=== PATIENT | female | born 1960 | race African-American/Black ===

== ENCOUNTER 2020-09-13 22:27 | Inpatient (IN) | payer SELFPAY ==
[~2020-09-13 22:27] MED LIST: Iopamidol-370 76% 500 ML 1 ML ONE
[2020-09-13 23:08] LABS: PTT 24.7 sec (22.9-36.1); Prothrombin Time 13.8 sec (12.0-14.7)
[2020-09-13] MEDS ORDERED: Fentanyl 100 MCG/2 ML VIAL ONE (23:11)
[2020-09-13] MEDS ORDERED: niMODipine 30 MG CAP PO SCH ×2 (23:15→23:50)
[2020-09-13] MEDS ORDERED: niCARdipine 20MG In NaCl 20 MG/200 ML BAG ONE (23:21)
[2020-09-13] MEDS ORDERED: Morphine 2 MG/ML VIAL SLOW IVP PRN (23:43)
[2020-09-13] MEDS ORDERED: Promethazine HCl 25 MG/ML VIAL IM PRN (23:43)
[2020-09-13] MEDS ORDERED: Mag-Al 1200 mg/1200 mg/30 ML UDCUP PO PRN (23:43)
[2020-09-13] MEDS ORDERED: Ondansetron PF 4 MG/2 ML Vial IVP PRN (23:43)
[2020-09-13] MEDS ORDERED: Milk Of Magnesia 30 ML UDCUP PO PRN (23:43)
[2020-09-13] MEDS ORDERED: Promethazine 25 MG TAB PO PRN (23:43)
[2020-09-13] MEDS ORDERED: Docusate 100 MG CAP PO SCH (23:45)
[2020-09-13] MEDS ORDERED: niCARdipine 25 MG in Sodium Chloride 0.9% 250 ML 240 ML IVPB SCH (23:45)
[2020-09-13] MEDS ORDERED: Tranexamic Acid 1,000 MG in Sodium Chloride 0.9% 100 ML IVPB SCH (23:59)
--- NOTE | 2020-09-14 00:47 | HP ---
CHIEF COMPLAINT: Headache, nausea and vomiting. HISTORY OF PRESENT ILLNESS: Ms. Bello is a 59-year-old female, who was transferred from [facility] in [place] this evening for findings of acute subarachnoid hemorrhage concerning for ruptured aneurysm. The patient's daughter and son at bedside provided majority of the history. They report that the patient was at her granddaughter's basketball game this evening and around 1814 began complaining of an occipital headache and neck pain. She then had onset of nausea, vomiting, and diaphoresis. No associated loss of consciousness or confusion. The patient denies any vision changes, chest pain, shortness of breath, or other complaints. The patient was taken to the emergency department in [place], at which time she had a presenting blood pressure of 245/102. She has a known history of hypertension and takes lisinopril. She was administered labetalol [address] of the brain was completed which demonstrated subarachnoid hemorrhage involving the [place] of [place] with "crab of " appearance, with layering along the tentorium. Chest x-ray demonstrated stable cardiomegaly with bibasilar atelectasis. Given CT findings as well as persistent blood pressure elevation, the patient was started on a nicardipine drip. Air transfer to [place] was initiated and our team was consulted. Upon arrival to the Emergency Department in [place], CTA of the head was ordered and the patient was started on nimodipine 60 mg q.4 hours. She was also started on TXA. PAST MEDICAL HISTORY: Hypertension. HOME MEDICATIONS: Lisinopril. The patient does not take aspirin or any other anticoagulation at home. 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 section x2. Carpal tunnel surgery. SOCIAL HISTORY: Denies tobacco use. Denies alcohol use. Denies illicit drug use. The patient lives at home with her daughter. ALLERGIES: NO KNOWN DRUG ALLERGIES. REVIEW OF SYSTEMS: Positive for headache, neck pain, nausea, vomiting, diaphoresis. Twelve-point review of systems is otherwise negative. PHYSICAL EXAMINATION: VITAL SIGNS: Blood pressure 200s/90s, heart rate in the 60s, O2 saturation 99% on room air, respirations 16. GENERAL: The patient is drowsy with her eyes closed upon my entering the room for evaluation. However, she awakens quickly to verbal stimulus and responds to questions appropriately. She is in no acute distress at this time. HEENT: Head; normocephalic, atraumatic. Pupils 3 mm, equal and reactive to light bilaterally. Extraocular movements are intact. NECK: Supple. Normal range of motion. No tracheal deviation. CARDIAC: Regular rate and rhythm. RESPIRATORY: Lungs clear to auscultation bilaterally. No wheezing, no rales, no rhonchi, no tachypnea, nonlabored breathing. ABDOMEN: Soft, nondistended, and nontender. SKIN: Warm, dry. No rashes. NEUROLOGIC: The patient is drowsy, but awakens to verbal stimulus and responds to questions appropriately. She is A&O x3. She is able to correctly identify a pen and state its used. She provides the correct definition of an island. Cranial nerves 2 through 12 are grossly intact. No pronator drift. Full strength throughout the upper and lower extremity myotomes bilaterally. Sensation to light touch is intact throughout. Gait was not assessed. IMPRESSION AND DIAGNOSES: 1. Acute subarachnoid hemorrhage, possible ruptured aneurysm. 2. Hypertensive crisis. 3. History of hypertension. PLAN: The case was discussed and imaging reviewed with Dr. Zavala. He agreed that a CTA of the head should be completed upon ED arrival. As noted above, the patient was started on nimodipine 60 mg q.4 hours, as well as TXA for up to 24 hours. She will be on a nicardipine drip with blood pressure parameters of systolic blood pressure less than 140 mmHg. Head of bed 30 degrees. She will be admitted to the Critical Care Unit for hourly neurologic checks. Please call for any neurologic changes or other concerns. This was a 50-minute initial evaluation in which greater than 50% of the time was spent in review of records, review of imaging, evaluation, examination, and formulation of a plan. The remaining time was spent in counseling and coordination of care. Job ID: [id number] MTDD
[2020-09-14] MEDS ORDERED: niCARdipine 20MG In NaCl 20 MG/200 ML BAG ONE (01:14)
[2020-09-14] MEDS: Sodium Chloride 0.9% 1,000 ML IV SCH ×2 (01:51→17:33)
[2020-09-14 02:00] VITALS: BMI 48.9
[2020-09-14 03:58] LABS: Anion Gap 15 mmol/L (10-20); BUN (Urea Nitrogen) 12 mg/dL (9.8-20.1); Calc. Creatinine Clearance 154 mL/min (70-130); Calcium 9.9 mg/dL (7.8-10.44); Carbon Dioxide 25 mmol/L (22-29); Chloride 101 mmol/L (98-107); Estimated GFR-MDRD Greater than 90; Glucose 153 mg/dL (70-105); Potassium 3.5 mmol/L (3.5-5.1); Sodium 137 mmol/L (136-145)
[2020-09-14] MEDS: HYDROcodone/Acetaminophen 7.5/325 mg Tablet PO PRN ×2 (04:18→15:57)
[2020-09-14 04:21] LABS: PTT 26.2 sec (22.9-36.1); Prothrombin Time 13.7 sec (12.0-14.7)
[2020-09-14] MEDS: niCARdipine 50 MG in Sodium Chloride 0.9% 250 ML 230 ML IVPB SCH ×5 (04:27→23:15)
[2020-09-14 04:49] LABS: #Monocytes 0.2 thou/uL (0.11-0.59); %Basophils 0.2 % (0.0-1.0); %Eosinophils 0.1 % (0.0-10.0); %Lymphocytes 8.5 % (21.0-51.0); %Monocytes 1.7 % (0.0-10.0); %Neutrophils 89.5 % (42.0-75.0); Hemoglobin 11.7 g/dL (12.0-16.0); Hypochromia SLIGHT = 6-15 cells (100X) (0-5/hpf); MDiff Complete? YES; Mean Corpuscular HGB CONC 29.8 g/dL (32.0-36.0); Mean Corpuscular Hemoglobin 22.4 pg (27.0-31.0); Mean Platelet Volume 10.4 fL (7.4-10.4); Platelet Count 222 thou/uL (130-400); RBC Distribution Width 12.6 % (11.5-14.5); Red Blood Cell (RBC) Count 5.25 mill/uL (4.20-5.40); White Blood Cell (WBC) Count 12.3 thou/uL (4.8-10.8)
[2020-09-14] MEDS ORDERED: niMODipine 30 MG CAP PO SCH (07:45)
[2020-09-14 07:57] LABS: SARS-CoV-2 NAA Rapid Test Not Detected (NotDetected)
--- NOTE | 2020-09-14 08:04 | CT ---
CTA HEAD WITH CONTRAST: Date: 09/13/2020 COMPARISON: CT brain dated 09/13/2020. HISTORY: Subarachnoid hemorrhage. Evaluate for rupture intracranial aneurysm. TECHNIQUE: Multiple contiguous axial images were obtained in a CTA of the head with contrast. 3D sagittal and co gonzalez MIP reformats were performed. FINDINGS: Diffuse subarachnoid hemorrhage is again seen. There is a 1.2 cm area of more focal hyperdensity christi g the posterior aspect of the cribriform plate to the left of midline. This area is not immediately a djacent to a major arterial structure. Bilateral intracranial internal carotid arteries are normal in caliber and branch into normal caliber anterior and middle cerebral arteries. There is no evidence of focal stenosis, occlusion, or aneurys mal dilatation in the anterior circulation. As stated above, the abnormality to the left of midline i s at least 2.0 cm from the anterior cerebral artery and middle cerebral artery. The vertebral arteries form a normal appearing basilar artery. The posterior cerebral arteries and ce rebellar arteries are patent. There is no evidence of focal stenosis, occlusion, or aneurysmal dilata tion of the posterior circulation. The venous structures appear patent. IMPRESSION: 1. Diffuse subarachnoid hemorrhage. 2. No evidence of intracranial aneurysm. 3. There is a more focal area of hyperdensity to the left of midline along the posterior aspect of t he cribriform plate. This is nonspecific, but could potentially represent focal blood or an intracran ial mass in this location. A MRI of the brain with and without contrast is recommended for further ev aluation. This could potentially represent a meningioma. POS: MAGDA
[2020-09-14] MEDS: Tranexamic Acid 1,000 MG in Sodium Chloride 0.9% 100 ML IVPB SCH ×3 (08:59→17:36)
[2020-09-14] MEDS ORDERED: Labetalol HCl 100 MG/20 ML VIAL ONE (10:45)
[2020-09-14] MEDS: Labetalol HCl 100 MG/20 ML VIAL SLOW IVP PRN ×5 (10:45→22:06)
--- NOTE | 2020-09-14 12:16 | PRG ---
DATE OF SERVICE: 09/14/2020 This is a 50-minute initial hospital visit note, in which 50 minutes were spent reviewing the imaging record, evaluation, examination of the patient, formulation of plan. Greater than 50% of time was spent in counseling on Sharmin Bello. I reviewed the notes of my colleague, Grace Valverde PA-C, and agree with its content. Ms. Bello is a very pleasant 59-year-old woman with a history of hypertension. She takes lisinopril. She was at a basketball game yesterday evening and had thunderclap headache. She and her daughter state that perhaps weeks ago she had a brief incidence of left supraorbital cephalgia, but this resolved when she laid down. She was brought in last night, however, with thunderclap headache, nausea, and vomiting, and then taken to hospital in [place]. This demonstrated an evidence of aneurysmal subarachnoid hemorrhage with intraventricular extension, consistent with a Buckley 3+1 score. She has otherwise a good grade subarachnoid hemorrhage. She was transferred here. CT angiogram late last night demonstrates a 12-mm left periophthalmic aneurysm in a slightly unusual place as it appears to be supraclinoid in location with a wide dome. She has no history of cranial base trauma to indicate that this would be a traumatic aneurysm. I do not see any other evidence of other aneurysms on her CTA. There is a suspicion that this could also be a vascular lesion or tumor that bled. Nevertheless, we will get an MRI of the brain without and with contrast today with plan for formal angiogram tomorrow. She is on nimodipine. We are working on blood pressure control with nicardipine and I have added labetalol and hydralazine. She is on bed rest and we are currently utilizing tranexamic acid. I spoke with Dr. Monsalve as well regarding cerebral angiography for diagnostic and potentially therapeutic purposes. We will continue close observation in the ICU and I have discussed that the risks with aneurysm rupture include rebleed, hydrocephalus, vasospasm, and salt derangement in the coming days. Job ID: [id number]
--- NOTE | 2020-09-14 13:01 | MRI ---
Exam: Brain MRI with and without contrast HISTORY: Subarachnoid hemorrhage. Recent CT angiogram for aneurysm evaluation. Possible meningioma no indra on that exam. Further evaluation with brain MRI. COMPARISON: None Correlation: CT angiogram the head 09/14/2020 FINDINGS: Gradient echo sequence: Hypointensity involving the fourth, third ventricle, occipital horns of both ventricles left sylvian fissure, left sulci compatible with subarachnoid and intraventricular hemorrhage. Calvarium: Appropriate T1 marrow signal intensity Midline brain parenchyma: Unremarkable Cerebrum:No parenchymal mass, mass effect or midline shift. Brain volume is age-appropriate. Cortical ovalle-white matter differentiation is preserved. Ventricles: Intraventricular hemorrhage involving the occipital horn of both lateral ventricles. Intr aventricular hemorrhage in the third and fourth ventricle is also noted. Sinuses and mastoid air cells: Diminutive left maxillary sinus. Mild mucosal thickening of the visual ized paranasal sinuses. Adequate mastoid air cell aeration Diffusion: Central arterial flow is maintained. Absent restricted diffusion. FLAIR images: There is evidence of subarachnoid hemorrhage involving multiple left cerebral sulci, in terpeduncular cistern, ambient cistern. There are T2 and FLAIR white matter hyperintensities which may represent minimal chronic small vessel ischemic change. Postcontrast images:No pathologic enhancement the brain parenchyma. Just superior to the left clinoid process, there is a enhancing focus with dural tails, measuring 1 cm anterior posterior by 1 cm mediolateral by 0.8 cm cranial caudal. Meningioma is favored. Lesion corresponds to finding on recent CT angiogram IMPRESSION: 1. Subarachnoid and intraventricular hemorrhage 2. No pathologic enhancement the brain parenchyma. 3. Absent restricted diffusion. No acute infarct 4. Meningioma just superior to the left clinoid process. No significant mass effect or edema in the a djacent brain parenchyma.
[2020-09-14] MEDS: niMODipine 30 MG CAP PO SCH ×3 (13:23→20:40)
[2020-09-14] MEDS: hydrALAZINE 20 MG/ML VIAL SLOW IVP PRN (15:11)
[2020-09-14] MEDS ORDERED: Magnevist 469MG/ML 20 ML VIAL ONE (15:56)
--- NOTE | 2020-09-14 17:44 | PDOC.HHP ---
Hospitalist HPI - History of Present Illness Headache History of Present Illness: Patient is a 59-year-old female with a history of hypertension who presented via the emergency department with a thunderclap headache. Patient had a CT scan done in [place] emergency department consistent with aneurysmal bleed and subarachnoid hemorrhage. Patient was transferred to this facility. She has been admitted by the neurosurgery team. She has evidence of progression into the ventricles. So far there is been no indication for surgical intervention. Currently the patient is generally sleepy however she is able to generally answer questions. She denies any pain at this time. Hospitalist service consulted for medical management. Hospitalist ROS - Review of Systems ROS unobtainable: due to mental status - Medication Medications: Active Medications Generic Name Dose Route Start Last Admin Trade Name Freq PRN Reason Stop Dose Admin Hydrocodone Bitart/Acetaminophen 1 tab 09/13/20 23:43 09/14/20 15:57 Hydrocodone/Acetaminophen 7.5/325 Mg Tablet PO 1 tab Q4H PRN Administration Moderate Pain (4-6) Hydralazine HCl 10 mg 09/14/20 10:49 09/14/20 15:11 Hydralazine 20 Mg/Ml Vial SLOW IVP 10 mg Q30MIN PRN Administration SBP >140 Sodium Chloride 1,000 mls @ 75 mls/hr 09/13/20 23:45 09/14/20 17:33 Normal Saline 0.9% IV 1,000 mls .[id number] JUNITO Administration Tranexamic Acid 1,000 mg/ 110 mls @ 200 mls/hr 09/14/20 08:00 09/14/20 17:36 Sodium Chloride IVPB 09/15/20 00:31 110 mls 0800,1600,2359 JUNITO Administration Nicardipine HCl 50 mg/ Sodium 250 mls @ 0 mls/hr 09/14/20 04:30 09/14/20 15:59 Chloride IVPB 250 mls INF JUNITO Administration Protocol Titrate Labetalol HCl 10 mg 09/14/20 10:51 09/14/20 15:58 Labetalol Hcl 100 Mg/20 Ml Vial SLOW IVP 2 ml Q10MIN PRN Administration SBP >140 Morphine Sulfate 2 mg 09/13/20 23:43 09/14/20 11:11 Morphine 2 Mg/Ml Vial SLOW IVP 2 mg Q1H PRN Administration Severe Pain (7-10) Nimodipine 60 mg 09/14/20 13:00 09/14/20 17:31 Nimodipine 30 Mg Cap PO 60 mg Q4HR JUNITO Administration Ondansetron HCl 4 mg 09/13/20 23:43 09/14/20 07:45 Ondansetron Pf 4 Mg/2 Ml Vial IVP 4 mg Q6H PRN Administration Nausea/Vomiting Only home medication is lisinopril. Hospitalist History - Past Medical History Cardiac: reports: HTN - Past Surgical History Past Surgical History: reports: , Other (There are some vague history of a prior spinal tumor removal somewhere in the thoracic region. Carpal tunnel release.) - Social History Smoking Status: Never smoker Alcohol: reports: None Drugs: reports: none - Exam General Appearance: NAD, awake alert General - other findings: Obese Eye: PERRL Neck: supple, symmetric, no JVD, no thyromegaly, no lymphadenopathy, no carotid bruit Heart: RRR, no murmur, no gallops, no rubs, normal peripheral pulses Respiratory: CTAB, no wheezes, no rales, no ronchi, normal chest expansion, no tachypnea, normal percussion Gastrointestinal: soft, non-tender, non-distended, normal bowel sounds, no palpable masses, no hepatomegaly, no splenomegaly, no bruit Extremities: no cyanosis, no clubbing, no edema Skin: normal turgor Musculoskeletal: generalized weakness Psychiatric: somnolent Psychiatric - other findings: Encephalopathic Hospitalist Results - Labs Result Diagrams: 09/14/20 03:11 09/14/20 03:11 Lab results: WBC 12.3 thou/uL (4.8-10.8) H 09/14/20 03:11 Hgb 11.7 g/dL (12.0-16.0) L 09/14/20 03:11 Hct 39.4 % (36.0-47.0) 09/14/20 03:11 MCV 75.0 fL (78.0-98.0) L 09/14/20 03:11 Plt Count 222 thou/uL (130-400) 09/14/20 03:11 Neutrophils % 89.5 % (42.0-75.0) H 09/14/20 03:11 Sodium 137 mmol/L (136-145) 09/14/20 03:11 Potassium 3.5 mmol/L (3.5-5.1) 09/14/20 03:11 Chloride 101 mmol/L (98-107) 09/14/20 03:11 Carbon Dioxide 25 mmol/L (22-29) 09/14/20 03:11 BUN 12 mg/dL (9.8-20.1) 09/14/20 03:11 Creatinine 0.68 mg/dL (0.6-1.1) 09/14/20 03:11 Glucose 153 mg/dL (70-105) H 09/14/20 03:11 Calcium 9.9 mg/dL (7.8-10.44) 09/14/20 03:11 Hospitalist H&P A/P - Plan Plan: Subarachnoid hemorrhage: Managed by neurosurgery. There was a new meningioma on her MRI. I have discussed diagnostic angiogram. Patient generally appears to be stable at the moment. She remains encephalopathic. Focuses on maintaining blood pressure control. She is on a Cardene drip with several other IV backup medications in place. She appears to have relatively normal speech and swallow at this time. So far no sodium issues. Hypertension: As above patient is currently on IV medications managing her blood pressure aggressively.
--- NOTE | 2020-09-14 21:12 | CON ---
DATE OF CONSULTATION: 09/14/2020 CHIEF COMPLAINT: Hypertension with subarachnoid hemorrhage. HISTORY OF PRESENT ILLNESS: Ms. Bello is a 59-year-old female who reports that she was in her usual state of health until the evening of admission at which time she had the onset of occipital headache and pain. This was reportedly followed by nausea, vomiting, diaphoresis, and some instability of gait. There was no associated loss of consciousness and the patient denied change in vision or focal weakness. She was taken to the emergency room in [place] at which time she was found to be quite hypertensive with blood pressure of 245/110. She received labetalol IV and CAT scan was consistent with a subarachnoid hemorrhage. She was subsequently transferred to [facility] and was evaluated by Neurosurgery in the emergency room. She has been placed on a Cardene drip to control her blood pressure and today additional antihypertensive therapy has been provided. It is anticipated that she will have further angiography tomorrow for determination of appropriate management of what appears to be an aneurysm with rupture. The patient herself is confused as to the events surrounding her admission. She attributes that having fallen about a month ago and she could not recall to me the events of yesterday, although once I relayed them to her, she stated that at least sounded reasonable. SOCIAL HISTORY: The patient is a 59-year-old female. She does not smoke or drink and takes no illicit drugs. ALLERGIES: SHE HAS NO MEDICATION ALLERGIES. MEDICATIONS: Her home medicines reportedly include lisinopril, the patient cannot tell me a dose. She reports that she is only moderately compliant. PAST MEDICAL HISTORY: The chart reflects a remote spinal tumor resection of unknown cause. The patient tells me that she has had previous stroke several years ago due to poor control of her blood pressure and states that blood pressure when she goes to the doctor is normally between 160 and 180 systolic. REVIEW OF SYSTEMS: Remarkable as above. It is somewhat unreliable given her poor historian status. PHYSICAL EXAMINATION: VITAL SIGNS: Current blood pressure 149/66. She is on a Cardene drip. Heart rate is 68. Saturation 95%. She is sleepy, but arousable. GENERAL: When I initially went in the room, the patient was asleep with snoring suggestive of obstructive sleep apnea. She did arouse easily. HEENT: Shows no icterus. She has no cranial nerve abnormality. Oropharynx shows no exudate. NECK: Enlarged. There is no palpable adenopathy. There is no JVD. LUNGS: Clear. HEART: Regular rate and rhythm. ABDOMEN: Soft and obese. There is no organomegaly. EXTREMITIES: Show no cyanosis, clubbing, or edema. NEUROLOGIC: Shows no focal finding. LABORATORY DATA: Radiology studies have been reviewed. White count 98404, hemoglobin 11.7. She has microcytic indices with a normal RDW, this might be more consistent with a thalassemia. PT, INR are normal. Chemistry panel is normal including a BUN of 12 and a creatinine of 0.68. SARs COVID test was negative. GFR is greater than 90. Blood sugar was 153. IMPRESSION: 1. Subarachnoid hemorrhage presumed secondary to ruptured aneurysm. 2. Poorly-controlled hypertension. 3. Possible obstructive sleep apnea. This would certainly also be a contributing factor to her poor control of hypertension. PLAN: The patient is currently in the ICU, undergoing frequent monitoring. She is on IV Cardene and additional medications have been added for blood pressure control. It is anticipated that she will have an angiogram tomorrow to define an appropriate next step. The patient has been strongly counseled regarding the need for medication compliance of her underlying hypertension with a goal blood pressure of 140 or less on an outpatient basis. She needs to be engaged in exercise and weight loss regimen (BMI 48.9). She did have snoring when I first went in the room and I suspect that she has sleep apnea and would appear to be a candidate for outpatient sleep study and initiation of CPAP therapy, if indicated. Pulmonary Service will continue to follow and offer additional assistance. Thank you for this consultation. Job ID: [id number]
[2020-09-15] MEDS: Tranexamic Acid 1,000 MG in Sodium Chloride 0.9% 100 ML IVPB SCH (00:40)
[2020-09-15] MEDS: niMODipine 30 MG CAP PO SCH ×6 (00:40→20:16)
[2020-09-15] MEDS: Sodium Chloride 0.9% 1,000 ML IV SCH ×2 (05:46→10:45)
[2020-09-15] MEDS: niCARdipine 50 MG in Sodium Chloride 0.9% 250 ML 230 ML IVPB SCH ×4 (05:47→19:18)
[2020-09-15] MEDS: Labetalol HCl 100 MG/20 ML VIAL SLOW IVP PRN ×2 (06:21→11:08)
[2020-09-15] MEDS ORDERED: Labetalol 100 MG TAB PO SCH ×2 (11:15→21:00)
[2020-09-15] MEDS ORDERED: Lisinopril 20 MG TAB PO SCH ×2 (11:15→21:00)
--- NOTE | 2020-09-15 11:20 | PRG ---
DATE OF SERVICE: 09/15/2020 SUBJECTIVE: Ms. Bello states she feels about the same. She is still having some headache. She denies any nausea or vomiting. She has not been out of bed. She remains on maximal doses of IV Cardizem. We have contacted the Pharmacy and her only home medication daily. OBJECTIVE: VITAL SIGNS: Blood pressure is 154/59, heart rate is 72, respiratory rate is 25, and saturation is 94%. GENERAL: She is easily awakened, but snoring while asleep consistent with obstructive sleep apnea. LUNGS: She has clear lung limon without wheezing. HEART: Regular rate and rhythm. I do not hear a murmur nor gallop. ABDOMEN: Obese. EXTREMITIES: She has trace edema. NEUROLOGIC: She has a nonfocal exam. LABORATORY DATA: None today. IMPRESSION: 1. Subarachnoid bleed secondary to presumed aneurysm. 2. Poorly controlled hypertension. PLAN: She is tentatively scheduled for further neurologic imaging study under direction of the neurosurgical service. We will go ahead and start her on to lisinopril, but increase to 20 twice a day and add to that labetalol 200 twice a day. Hopefully, the fact that each medicine is twice daily will improve her compliance relative to some form of staggered dose. I have not put her on a diuretic right now. She is certainly going to need a sleep study as an outpatient. Job ID: [id number]
--- NOTE | 2020-09-15 14:13 | PRG ---
DATE OF SERVICE: Ms. Bello is hospital day two, I believe day three of an aneurysmal pattern subarachnoid hemorrhage. CTA is negative for aneurysm. MRI of the brain appears to have confirmed that the ovoid mass in the region of the supraclinoid region was in fact meningioma. Formal cerebral angiography is scheduled for tomorrow with Dr. Monsalve. The patient remains awake with occasional periods of drowsiness and neurologically intact. Her sodium is acceptable. Blood pressure ranging 140 to 150 systolic. We will increase her IV fluids to 100 mL/h of normal saline. She is entering the vasospasm window. Continue to closely monitor. Job ID: [id number]
--- NOTE | 2020-09-15 14:23 | PDOC.HOSPP ---
- Subjective Encounter Date: 09/15/20 Encounter Time: 09:45 Subjective: awakens easily, is oriented well moves all extremities daughter at bedside - Objective Vital Signs & Weight: Vital Signs (12 hours) Temp Pulse BP Pulse Ox 09/15/20 12:00 98.5 F 09/15/20 11:58 74 160/61 H 09/15/20 11:57 160/61 H 09/15/20 11:08 71 143/64 H 09/15/20 08:00 98.7 F 98 09/15/20 06:21 79 143/64 H 09/15/20 04:00 99.5 F Weight Weight 242 lb 1.081 oz Most Recent Monitor Data Heart Rate from ECG 75 NIBP 155/65 NIBP BP-Mean 95 Respiration from ECG 17 SpO2 97 I&O: 09/14/20 09/15/20 09/16/20 06:59 06:59 06:59 Intake Total 687 3509 80 Output Total 400 780 200 Balance 287 2729 -120 Result Diagrams: 09/14/20 03:11 09/14/20 03:11 Hospitalist ROS - Medication Medications: Active Medications Generic Name Dose Route Start Last Admin Trade Name Freq PRN Reason Stop Dose Admin Hydrocodone Bitart/Acetaminophen 1 tab 09/13/20 23:43 09/14/20 15:57 Hydrocodone/Acetaminophen 7.5/325 Mg Tablet PO 1 tab Q4H PRN Administration Moderate Pain (4-6) Hydralazine HCl 10 mg 09/14/20 10:49 09/14/20 15:11 Hydralazine 20 Mg/Ml Vial SLOW IVP 10 mg Q30MIN PRN Administration SBP >140 Nicardipine HCl 50 mg/ Sodium 250 mls @ 0 mls/hr 09/14/20 04:30 09/15/20 10:44 Chloride IVPB 250 mls INF JUNITO Administration Protocol Titrate Sodium Chloride 1,000 mls @ 100 mls/hr 09/15/20 10:45 09/15/20 10:45 Normal Saline 0.9% IV Not Given .Q10H JUNITO Labetalol HCl 10 mg 09/14/20 10:51 09/15/20 11:08 Labetalol Hcl 100 Mg/20 Ml Vial SLOW IVP 10 mg Q10MIN PRN Administration SBP >140 Morphine Sulfate 2 mg 09/13/20 23:43 09/14/20 11:11 Morphine 2 Mg/Ml Vial SLOW IVP 2 mg Q1H PRN Administration Severe Pain (7-10) Nimodipine 60 mg 09/14/20 13:00 09/15/20 12:44 Nimodipine 30 Mg Cap PO 60 mg Q4HR JUNITO Administration Ondansetron HCl 4 mg 09/13/20 23:43 09/14/20 07:45 Ondansetron Pf 4 Mg/2 Ml Vial IVP 4 mg Q6H PRN Administration Nausea/Vomiting Sodium Chloride 10 ml 09/14/20 21:00 09/15/20 08:41 Flush - Normal Saline 10 Ml Syringe IVF Not Given Q12HR JUNITO - Exam Eye: PERRL, anicteric sclera ENT: no oropharyngeal lesions, moist mucosa Neck: supple, no JVD Heart: RRR, no murmur Respiratory: no wheezes, no rales Gastrointestinal: soft, non-tender, non-distended, normal bowel sounds Extremities: no cyanosis, no edema Neurological: cranial nerve grossly intact, no focal deficits Hosp A/P (1) Subarachnoid hemorrhage Code(s): I60.9 - NONTRAUMATIC SUBARACHNOID HEMORRHAGE, UNSPECIFIED Status: Acute (2) Hypertensive emergency Code(s): I16.1 - HYPERTENSIVE EMERGENCY Status: Acute (3) Obesity Code(s): E66.9 - OBESITY, UNSPECIFIED Status: Chronic Qualifiers: Obesity classification: adult class 3 (BMI >= 40) Body mass index: BMI 45.0-49.9 - Plan is on cardene drip oral labetalol bid, lisinopril bid, nimodipine q4h along with iv fluids is for cerebral angiogram by in hemo/neurostable now d/w daughter at bedside may start oral liq diet is drowsy but easily arousable and is oriented
[2020-09-15] MEDS: Labetalol 100 MG TAB PO SCH (20:16)
[2020-09-15] MEDS: Lisinopril 20 MG TAB PO SCH (20:17)
[2020-09-16] MEDS: niMODipine 30 MG CAP PO SCH ×6 (01:10→21:13)
[2020-09-16] MEDS: Acetaminophen 325 MG TAB PO PRN (01:10)
[2020-09-16] MEDS: Sodium Chloride 0.9% 1,000 ML IV SCH ×4 (01:11→15:45)
[2020-09-16] MEDS: niCARdipine 50 MG in Sodium Chloride 0.9% 250 ML 230 ML IVPB SCH ×2 (03:22→07:46)
[2020-09-16] MEDS: Labetalol 100 MG TAB PO SCH ×3 (07:58→21:14)
[2020-09-16] MEDS: Lisinopril 20 MG TAB PO SCH ×2 (07:58→21:15)
--- NOTE | 2020-09-16 08:46 | PRG ---
DATE OF SERVICE: 09/16/2020 SUBJECTIVE: The patient is doing well without complaint. OBJECTIVE: VITAL SIGNS: Temperature is 99.3, pulse 79, blood pressure 148/70, and O2 saturation 93%. HEENT: Unremarkable. NECK: No adenopathy or JVD. NEUROLOGIC: Nonfocal. LUNGS: Clear. CARDIAC: S1 and S2. Regular. ABDOMEN: Soft. EXTREMITIES: No edema. LABORATORY DATA: No labs were done today. ASSESSMENT: 1. Subarachnoid hemorrhage. 2. Hypertension. PLAN: She is continuing on nicardipine drip. It looks like blood pressure is being monitored closely because risk for vasospasm. We will continue to follow with you. Job ID: [id number]
[2020-09-16] MEDS ORDERED: Lidocaine 1% (PF) 30 ML VIAL ONE (10:08)
--- NOTE | 2020-09-16 10:12 | ULT ---
US Venous Doppler Bilat History: immobilization Comparison: None. Findings: Real-time grayscale, color and spectral analysis of the bilateral lower extremity venous sy stem was performed. The common femoral, femoral, proximal portions greater saphenous and deep femoral veins as well as the popliteal and posterior tibial veins were interrogated. Normal flow, augmentation and compression. Impression: No deep venous thrombosis.
--- NOTE | 2020-09-16 10:52 | PRG ---
DATE OF SERVICE: 09/16/2020 SUBJECTIVE: Ms. Bello presented with subarachnoid hemorrhage. She underwent CT and CT angiogram, which failed to reveal obvious source for subarachnoid hemorrhage. I was consulted to have discussion with her regarding cerebral angiography. I met with her this morning in her room and discussed with her her diagnosis as well as the need to move forward with cerebral angiography to try to identify any obvious cause for subarachnoid hemorrhage. She is awake, alert, and able to ask questions. I explained to her the risks, benefits, and alternatives of the procedure. She did provide an informed consent. She has also been consented by her family due to episodic confusion. The plan today will be cerebral angiography. Job ID: [id number]
[2020-09-16] MEDS ORDERED: Fentanyl 100 MCG/2 ML VIAL ONE (11:05)
--- NOTE | 2020-09-16 11:18 | PRG ---
DATE OF SERVICE: 09/16/2020 SUBJECTIVE: Ms. Bello is 3 days into her hospital stay for atraumatic subarachnoid hemorrhage. She was seen this morning and was resting comfortably in bed without any complaints. She denies any headache, pain, nausea, vomiting, dizziness, vision changes, chest pain, or shortness of breath. She remains on nicardipine drip with SBP in 140s-160s. She remains on nimodipine. She is awake, alert, and appropriate. She is oriented to self, place, and time. She answers all questions appropriately. With lights off in the the room, her pupils are 5 mm bilaterally, equal, round, and reactive to light. Extraocular movements are intact. Cranial nerves 2-12 are grossly intact. No tongue fasciculations. She has 5/5 strength throughout her upper and lower extremities bilaterally. ASSESSMENT AND PLAN: The patient will undergo cerebral angiography today with Dr. Monsalve. A Doppler ultrasound of the bilateral lower extremities was ordered, and this was negative for evidence of lower extremity DVT. Our team will continue to follow. She will remain on nimodipine. Please call for any neurologic changes or other concerns. Addendum 09/16/2020 1246 - Dr. Monsalve reports cerebral angiography findings were negative for source of subarachnoid hemorrhage, with mild vasospasm noted. Continue nimodipine 60 mg q4h. Normal saline IVF infusion has been increased to 125 mL/hour. Nicardipine drip has been stopped and SBP can be liberalized up to 180 mm Hg. This was a 15-minute subsequent visit, in which greater than 50% of the time was spent in review of records, review of imaging, evaluation, examination, and formulation of a plan. The remaining time was spent in counseling and coordination of care. Job ID: [id number] [facility]
[2020-09-16 12:07] LABS: #Basophils 0.1 thou/uL (0.0-0.2); #Lymphocytes 1.8 thou/uL (1.20-3.40); #Monocytes 0.8 thou/uL (0.11-0.59); %Basophils 0.4 % (0.0-1.0); %Eosinophils 0.1 % (0.0-10.0); %Lymphocytes 14.5 % (21.0-51.0); %Monocytes 6.1 % (0.0-10.0); %Neutrophils 78.9 % (42.0-75.0); Hemoglobin 10.6 g/dL (12.0-16.0); Mean Corpuscular HGB CONC 31.1 g/dL (32.0-36.0); Mean Corpuscular Hemoglobin 23.4 pg (27.0-31.0); Mean Corpuscular Volume 75.3 fL (78.0-98.0); Mean Platelet Volume 9.5 fL (7.4-10.4); Platelet Count 199 thou/uL (130-400); RBC Distribution Width 12.7 % (11.5-14.5); Red Blood Cell (RBC) Count 4.52 mill/uL (4.20-5.40); White Blood Cell (WBC) Count 12.7 thou/uL (4.8-10.8)
[2020-09-16 12:32] LABS: Anion Gap 13 mmol/L (10-20); BUN (Urea Nitrogen) 17 mg/dL (9.8-20.1); Calc. Creatinine Clearance 164 mL/min (70-130); Carbon Dioxide 22 mmol/L (22-29); Chloride 109 mmol/L (98-107); Estimated GFR-MDRD Greater than 90; Glucose 116 mg/dL (70-105); Potassium 3.3 mmol/L (3.5-5.1); Sodium 141 mmol/L (136-145)
--- NOTE | 2020-09-16 14:26 | PDOC.HOSPP ---
- Subjective Encounter Date: 09/16/20 Encounter Time: 11:20 Subjective: just had cerebral angiogram done by , is a bit drowsy from anesthesia is seen moving all extremities daughter at bedside - Objective Vital Signs & Weight: Vital Signs (12 hours) Temp Pulse BP Pulse Ox 09/16/20 12:23 77 148/83 H 09/16/20 11:00 98.6 F 09/16/20 08:00 95 09/16/20 07:58 77 148/83 H 09/16/20 07:00 99.3 F Weight Weight 242 lb 1.081 oz Most Recent Monitor Data Heart Rate from ECG 80 NIBP 182/57 NIBP BP-Mean 98 Respiration from ECG 31 SpO2 92 I&O: 09/15/20 09/16/20 09/17/20 06:59 06:59 06:59 Intake Total 3509 4052 250 Output Total 780 1330 715 Balance 2729 2722 -721 Result Diagrams: 09/16/20 11:56 09/16/20 11:56 Hospitalist ROS - Medication Medications: Active Medications Generic Name Dose Route Start Last Admin Trade Name Freq PRN Reason Stop Dose Admin Acetaminophen 650 mg 09/13/20 23:43 09/16/20 01:10 Acetaminophen 325 Mg Tab PO 650 mg Q4H PRN Administration Headache/Fever/Mild Pain (1-3) Hydrocodone Bitart/Acetaminophen 1 tab 09/13/20 23:43 09/14/20 15:57 Hydrocodone/Acetaminophen 7.5/325 Mg Tablet PO 1 tab Q4H PRN Administration Moderate Pain (4-6) Hydralazine HCl 10 mg 09/14/20 10:49 09/14/20 15:11 Hydralazine 20 Mg/Ml Vial SLOW IVP 10 mg Q30MIN PRN Administration SBP >140 Sodium Chloride 1,000 mls @ 125 mls/hr 09/16/20 11:15 09/16/20 12:24 Normal Saline 0.9% IV Not Given .Q8H JUNITO Labetalol HCl 10 mg 09/14/20 10:51 09/15/20 11:08 Labetalol Hcl 100 Mg/20 Ml Vial SLOW IVP 10 mg Q10MIN PRN Administration SBP >140 Labetalol HCl 200 mg 09/15/20 21:00 09/16/20 12:23 Labetalol 100 Mg Tab PO 200 mg BID JUNITO Administration Lisinopril 20 mg 09/15/20 21:00 09/16/20 07:58 Lisinopril 20 Mg Tab PO 20 mg BID JUNITO Administration Morphine Sulfate 2 mg 09/13/20 23:43 09/14/20 11:11 Morphine 2 Mg/Ml Vial SLOW IVP 2 mg Q1H PRN Administration Severe Pain (7-10) Nimodipine 60 mg 09/14/20 13:00 09/16/20 13:16 Nimodipine 30 Mg Cap PO 60 mg Q4HR JUNITO Administration Ondansetron HCl 4 mg 09/13/20 23:43 09/14/20 07:45 Ondansetron Pf 4 Mg/2 Ml Vial IVP 4 mg Q6H PRN Administration Nausea/Vomiting Sodium Chloride 10 ml 09/14/20 21:00 09/16/20 09:00 Flush - Normal Saline 10 Ml Syringe IVF Not Given Q12HR JUNITO - Exam Eye: PERRL, anicteric sclera ENT: no oropharyngeal lesions, moist mucosa Neck: supple, no JVD Heart: RRR, no murmur Respiratory: no wheezes, no rales Gastrointestinal: soft, non-tender, non-distended, normal bowel sounds Extremities: no cyanosis, no edema Neurological: cranial nerve grossly intact, no focal deficits Hosp A/P (1) Subarachnoid hemorrhage Code(s): I60.9 - NONTRAUMATIC SUBARACHNOID HEMORRHAGE, UNSPECIFIED Status: Acute (2) Hypertensive emergency Code(s): I16.1 - HYPERTENSIVE EMERGENCY Status: Acute (3) Obesity Code(s): E66.9 - OBESITY, UNSPECIFIED Status: Chronic Qualifiers: Obesity classification: adult class 3 (BMI >= 40) Body mass index: BMI 45.0-49.9 - Plan is on cardene drip oral labetalol bid, lisinopril bid, nimodipine q4h, add hydralazine tid along with iv fluids cerebral angiogram did not reveal any aneurysm this morning hemo/neurostable now d/w daughter at bedside may start oral liq diet and advance as tolerated is drowsy but easily arousable PT/OT eval in am will likely need sleep studies to r/o sleep apnea/obesity hypovent syndrome
[2020-09-16] MEDS ORDERED: Iopamidol 370 76% 100 ML VIAL ONE (15:06)
[2020-09-16] MEDS: hydrALAZINE 25 MG TAB PO SCH ×2 (16:04→21:13)
[2020-09-17] MEDS: niMODipine 30 MG CAP PO SCH ×6 (00:19→20:02)
[2020-09-17] MEDS: Labetalol HCl 100 MG/20 ML VIAL SLOW IVP PRN ×4 (03:20→23:47)
[2020-09-17 04:07] LABS: #Lymphocytes 1.4 thou/uL (1.20-3.40); #Monocytes 0.9 thou/uL (0.11-0.59); #Neutrophils 10.2 thou/uL (1.40-6.50); %Basophils 0.2 % (0.0-1.0); %Eosinophils 0.2 % (0.0-10.0); %Lymphocytes 11.2 % (21.0-51.0); %Monocytes 7.3 % (0.0-10.0); %Neutrophils 81.1 % (42.0-75.0); Hemoglobin 10.5 g/dL (12.0-16.0); Mean Corpuscular HGB CONC 30.7 g/dL (32.0-36.0); Mean Corpuscular Hemoglobin 22.6 pg (27.0-31.0); Mean Corpuscular Volume 73.7 fL (78.0-98.0); Mean Platelet Volume 10.3 fL (7.4-10.4); Platelet Count 200 thou/uL (130-400); RBC Distribution Width 12.7 % (11.5-14.5); Red Blood Cell (RBC) Count 4.62 mill/uL (4.20-5.40); White Blood Cell (WBC) Count 12.6 thou/uL (4.8-10.8)
[2020-09-17 04:23] LABS: Anion Gap 11 mmol/L (10-20); BUN (Urea Nitrogen) 13 mg/dL (9.8-20.1); Calc. Creatinine Clearance 169 mL/min (70-130); Calcium 9.1 mg/dL (7.8-10.44); Carbon Dioxide 25 mmol/L (22-29); Chloride 106 mmol/L (98-107); Estimated GFR-MDRD Greater than 90; Glucose 123 mg/dL (70-105); Sodium 139 mmol/L (136-145)
[2020-09-17] MEDS: hydrALAZINE 25 MG TAB PO SCH (09:16)
[2020-09-17] MEDS: Labetalol 100 MG TAB PO SCH (09:16)
[2020-09-17] MEDS: Potassium Chloride 20 MEQ TAB PO SCH ×2 (09:17→17:33)
[2020-09-17] MEDS: Lisinopril 20 MG TAB PO SCH (09:17)
[2020-09-17] MEDS: Sodium Chloride 0.9% 1,000 ML IV SCH ×2 (09:18→15:23)
--- NOTE | 2020-09-17 13:19 | PRG ---
DATE OF SERVICE: 09/17/2020 Ms. Bello is now 5 days into her subarachnoid hemorrhage. It appears to be an angiogram negative subarachnoid hemorrhage. 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 Her sodium is at 139. Her white blood cell count is 12.6. Her blood pressures ranged 150 to 170, which is exactly the range I would what it as she is in the vasospasm window. We are treating this with normal saline at 125 mL/h and also holding her p.o. antihypertensives, we are continuing nimodipine per subarachnoid hemorrhage protocol. Overall, she is a positive fluid balance since her admission approximately 3 L. She has a Leon catheter in place to allow for specific measuring. We will continue to watch closely. She is alert, appropriate, and a bit disappointed when I tell her that she will be in the hospital for at least another week as subarachnoid hemorrhage in the vasospasm is quite serious regarding risk. Her angiogram yesterday was negative. Job ID: [id number]
--- NOTE | 2020-09-17 13:56 | PDOC.HOSPP ---
- Subjective Encounter Date: 09/17/20 Encounter Time: 09:45 Subjective: awake, no headache or weakness feels better, is moving all extremities - Objective Vital Signs & Weight: Vital Signs (12 hours) Temp Pulse BP Pulse Ox 09/17/20 09:17 166/78 H 09/17/20 09:16 83 166/78 H 09/17/20 08:00 95 09/17/20 07:00 99.7 F H 09/17/20 04:00 99.7 F H 09/17/20 03:20 93 186/80 H Weight Weight 242 lb 1.081 oz Most Recent Monitor Data Heart Rate from ECG 76 NIBP 139/71 NIBP BP-Mean 93 Respiration from ECG 29 SpO2 94 I&O: 09/16/20 09/17/20 09/18/20 06:59 06:59 06:59 Intake Total 4052 1726 1654 Output Total 1330 3575 995 Balance 8694 -3746 056 Result Diagrams: 09/17/20 03:20 09/17/20 03:20 Hospitalist ROS - Medication Medications: Active Medications Generic Name Dose Route Start Last Admin Trade Name Freq PRN Reason Stop Dose Admin Acetaminophen 650 mg 09/13/20 23:43 09/16/20 01:10 Acetaminophen 325 Mg Tab PO 650 mg Q4H PRN Administration Headache/Fever/Mild Pain (1-3) Hydrocodone Bitart/Acetaminophen 1 tab 09/13/20 23:43 09/14/20 15:57 Hydrocodone/Acetaminophen 7.5/325 Mg Tablet PO 1 tab Q4H PRN Administration Moderate Pain (4-6) Hydralazine HCl 10 mg 09/14/20 10:49 09/14/20 15:11 Hydralazine 20 Mg/Ml Vial SLOW IVP 10 mg Q30MIN PRN Administration SBP Greater Than 180 Sodium Chloride 1,000 mls @ 125 mls/hr 09/16/20 11:15 09/17/20 09:18 Normal Saline 0.9% IV 1,000 mls .Q8H JUNITO Administration Labetalol HCl 10 mg 09/14/20 10:51 09/17/20 03:20 Labetalol Hcl 100 Mg/20 Ml Vial SLOW IVP 10 mg Q10MIN PRN Administration SBP Greater Than 180 Morphine Sulfate 2 mg 09/13/20 23:43 09/14/20 11:11 Morphine 2 Mg/Ml Vial SLOW IVP 2 mg Q1H PRN Administration Severe Pain (7-10) Nimodipine 60 mg 09/14/20 13:00 09/17/20 09:17 Nimodipine 30 Mg Cap PO 60 mg Q4HR JUNITO Administration Ondansetron HCl 4 mg 09/13/20 23:43 09/14/20 07:45 Ondansetron Pf 4 Mg/2 Ml Vial IVP 4 mg Q6H PRN Administration Nausea/Vomiting Potassium Chloride 40 meq 09/17/20 08:00 09/17/20 09:17 Potassium Chloride 20 Meq Tab PO 09/18/20 08:01 40 meq BID-WM JUNITO Administration Sodium Chloride 10 ml 09/14/20 21:00 09/17/20 09:19 Flush - Normal Saline 10 Ml Syringe IVF Not Given Q12HR JUNITO - Exam General Appearance: awake alert Eye: PERRL, anicteric sclera ENT: no oropharyngeal lesions, dry oral mucosa Neck: supple, no JVD Heart: RRR, no murmur Respiratory: no wheezes, no rales Gastrointestinal: soft, non-tender, non-distended, normal bowel sounds Extremities: no cyanosis, no edema Neurological: cranial nerve grossly intact, no focal deficits Psychiatric: A&O x 3 Hosp A/P (1) Subarachnoid hemorrhage Code(s): I60.9 - NONTRAUMATIC SUBARACHNOID HEMORRHAGE, UNSPECIFIED Status: Acute (2) Hypertensive emergency Code(s): I16.1 - HYPERTENSIVE EMERGENCY Status: Acute (3) Obesity Code(s): E66.9 - OBESITY, UNSPECIFIED Status: Chronic Qualifiers: Obesity classification: adult class 3 (BMI >= 40) Body mass index: BMI 45 .0-49.9 - Plan is off cardene drip, labetalol, lisinopril and hydralazine now. nimodipine q4h with iv fluids cerebral angiogram did not reveal any aneurysm hemo/neurostable, has neurochecks q1h d/w daughter at bedside start oral diet and PT eval will likely need sleep studies to r/o sleep apnea/obesity hypovent syndrome
--- NOTE | 2020-09-17 16:06 | CCLSPC ---
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 INDICATION: Subarachnoid hemorrhage. DIAGNOSIS: Subarachnoid hemorrhage. PROCEDURE: Cerebral angiography. ANESTHESIA: Local. TECHNIQUE: The patient was brought into the angiogram suite and placed on the table in the supine position. Both groins were prepped and draped in the usual sterile fashion. 1% lidocaine was used to inject the right groin. A 5-Bhutanese micropuncture set was used to gain access to the right common femoral artery. Using a Seldinger technique, a 5-Bhutanese was placed. A 5-Bhutanese diagnostic catheter was passed over a [employer] guidewire and advanced into the aortic arch where the right internal carotid artery was selectively catheterized. An AP and lateral angiogram was performed. The catheter was then placed in the left vertebral artery where an AP and lateral angiogram was performed. The catheter was then placed within the left common carotid artery where an AP and lateral angiogram was performed. The catheter was then removed. The sheath was removed and hemostasis was maintained with manual compression. The procedure came to an end without known complication. IMPRESSION: Cerebral angiography performed from the right internal carotid artery reveals no aneurysm, AVM, or obvious other source for subarachnoid hemorrhage. Angiography is performed from the left vertebral artery reveals no evidence for aneurysm or vascular abnormality. Angiography performed via the left common carotid artery is compromised by patient motion. There does appear to be some evidence of vasospasm in the proximal A1 and M1 segments. I am not able to identify any discernible aneurysm. I recommend repeat angiography in 2 weeks after the patient's cognition and state of lucidity improves. Job ID: [id number]
[2020-09-17] MEDS: hydrALAZINE 20 MG/ML VIAL SLOW IVP PRN (17:34)
[2020-09-18] MEDS: Sodium Chloride 0.9% 1,000 ML IV SCH ×4 (00:15→12:40)
[2020-09-18] MEDS: niMODipine 30 MG CAP PO SCH ×6 (01:36→20:15)
[2020-09-18] MEDS: Labetalol HCl 100 MG/20 ML VIAL SLOW IVP PRN ×10 (03:34→23:05)
[2020-09-18 04:24] LABS: #Eosinphils 0.1 thou/uL (0.0-0.7); #Lymphocytes 1.5 thou/uL (1.20-3.40); #Neutrophils 8.9 thou/uL (1.40-6.50); %Basophils 0.4 % (0.0-1.0); %Eosinophils 0.6 % (0.0-10.0); %Lymphocytes 13.1 % (21.0-51.0); %Monocytes 8.9 % (0.0-10.0); %Neutrophils 77.1 % (42.0-75.0); Mean Corpuscular HGB CONC 30.2 g/dL (32.0-36.0); Mean Corpuscular Hemoglobin 22.1 pg (27.0-31.0); Mean Corpuscular Volume 73.3 fL (78.0-98.0); Mean Platelet Volume 10.9 fL (7.4-10.4); Platelet Count 141 thou/uL (130-400); RBC Distribution Width 12.6 % (11.5-14.5); Red Blood Cell (RBC) Count 4.54 mill/uL (4.20-5.40); White Blood Cell (WBC) Count 11.6 thou/uL (4.8-10.8)
[2020-09-18 04:42] LABS: Anion Gap 13 mmol/L (10-20); BUN (Urea Nitrogen) 8 mg/dL (9.8-20.1); Calc. Creatinine Clearance 175 mL/min (70-130); Calcium 8.9 mg/dL (7.8-10.44); Carbon Dioxide 25 mmol/L (22-29); Chloride 104 mmol/L (98-107); Estimated GFR-MDRD Greater than 90; Glucose 116 mg/dL (70-105); Potassium 3.1 mmol/L (3.5-5.1); Sodium 139 mmol/L (136-145)
--- NOTE | 2020-09-18 07:53 | PRG ---
DATE OF SERVICE: 09/18/2020 SUBJECTIVE: The patient remains in the ICU on prevention for vasospasm. She had some altered mental status yesterday, which cleared up with more aggressive treatment of vasospasm. OBJECTIVE: VITAL SIGNS: Temperature 99.0, pulse 83, blood pressure 164/67, O2 saturation 94%. NEUROLOGIC: Nonfocal. HEENT: Unremarkable. NECK: No JVD. LUNGS: Clear. CARDIAC: S1 and S2. Regular. ABDOMEN: Soft. EXTREMITIES: No edema. LABORATORY DATA: Sodium 139, potassium 3.1, chloride 104, CO2 of 25, BUN 8, creatinine 0.6, glucose 116. White blood cell count 11.6, hematocrit 33, and platelet count 141. ASSESSMENT: 1. Vasospasm-currently under control on current nimodipine and nicardipine. 2. Subarachnoid hemorrhage. PLAN: 1. Continue current care. 2. Potassium has been replaced. 3. Recheck labs tomorrow. Job ID: [id number]
[2020-09-18] MEDS: Potassium Chloride 20 MEQ TAB PO SCH ×2 (08:44→17:04)
--- NOTE | 2020-09-18 13:19 | PDOC.HOSPP ---
- Subjective Encounter Date: 09/18/20 Encounter Time: 08:00 Subjective: awake, no headache or specific weakness in extremities or neck pain is moving all extremities, started to eat solid food, sat in chair yesterday and mobilized with PT a bit per staff daughter at bedside - Objective Vital Signs & Weight: Vital Signs (12 hours) Temp Pulse Pulse Pulse BP BP BP 09/18/20 12:00 99.5 F 09/18/20 10:42 69 70 193/86 H 173/86 H 09/18/20 10:38 71 193/86 H 09/18/20 08:47 79 194/79 H 09/18/20 08:13 87 184/70 H 09/18/20 07:00 99.5 F 09/18/20 05:35 87 185/82 H 09/18/20 04:07 87 185/82 H 09/18/20 04:00 99.0 F 09/18/20 03:34 87 202/86 H Pulse Ox Pulse Ox 09/18/20 12:00 09/18/20 10:42 100 100 09/18/20 10:38 09/18/20 08:47 09/18/20 08:13 09/18/20 07:00 09/18/20 05:35 09/18/20 04:07 09/18/20 04:00 09/18/20 03:34 Weight Weight 242 lb 1.081 oz Most Recent Monitor Data Heart Rate from ECG 67 NIBP 163/116 NIBP BP-Mean 131 Respiration from ECG 27 SpO2 100 I&O: 09/17/20 09/18/20 09/19/20 06:59 06:59 06:59 Intake Total 2144 7007 480 Output Total 0123 9995 1470 [facility]1849 -292 -990 Result Diagrams: 09/18/20 03:45 09/18/20 03:45 Hospitalist ROS - Medication Medications: Active Medications Generic Name Dose Route Start Last Admin Trade Name Freq PRN Reason Stop Dose Admin Acetaminophen 650 mg 09/13/20 23:43 09/16/20 01:10 Acetaminophen 325 Mg Tab PO 650 mg Q4H PRN Administration Headache/Fever/Mild Pain (1-3) Hydrocodone Bitart/Acetaminophen 1 tab 09/13/20 23:43 09/14/20 15:57 Hydrocodone/Acetaminophen 7.5/325 Mg Tablet PO 1 tab Q4H PRN Administration Moderate Pain (4-6) Hydralazine HCl 10 mg 09/14/20 10:49 09/17/20 17:34 Hydralazine 20 Mg/Ml Vial SLOW IVP 10 mg Q30MIN PRN Administration SBP Greater Than 180 Sodium Chloride 1,000 mls @ 125 mls/hr 09/16/20 11:15 09/18/20 12:40 Normal Saline 0.9% IV 1,000 mls .Q8H JUNITO Administration Labetalol HCl 10 mg 09/14/20 10:51 09/18/20 10:38 Labetalol Hcl 100 Mg/20 Ml Vial SLOW IVP 10 mg Q10MIN PRN Administration SBP Greater Than 180 Morphine Sulfate 2 mg 09/13/20 23:43 09/14/20 11:11 Morphine 2 Mg/Ml Vial SLOW IVP 2 mg Q1H PRN Administration Severe Pain (7-10) Nimodipine 60 mg 09/14/20 13:00 09/18/20 12:37 Nimodipine 30 Mg Cap PO 60 mg Q4HR JUNITO Administration Ondansetron HCl 4 mg 09/13/20 23:43 09/14/20 07:45 Ondansetron Pf 4 Mg/2 Ml Vial IVP 4 mg Q6H PRN Administration Nausea/Vomiting Potassium Chloride 40 meq 09/18/20 08:00 09/18/20 08:44 Potassium Chloride 20 Meq Tab PO 40 meq BID-WM JUNITO Administration Sodium Chloride 10 ml 09/14/20 21:00 09/18/20 07:47 Flush - Normal Saline 10 Ml Syringe IVF Not Given Q12HR JUNITO - Exam General Appearance: awake alert Eye: PERRL, anicteric sclera ENT: no oropharyngeal lesions, dry oral mucosa Neck: supple, no JVD Heart: RRR, no murmur Respiratory: no wheezes, no rales Gastrointestinal: soft, non-tender, non-distended, normal bowel sounds Extremities: no cyanosis, no edema Neurological: cranial nerve grossly intact, no focal deficits Psychiatric: A&O x 3 Hosp A/P (1) Subarachnoid hemorrhage Code(s): I60.9 - NONTRAUMATIC SUBARACHNOID HEMORRHAGE, UNSPECIFIED Status: Acute (2) Hypertensive emergency Code(s): I16.1 - HYPERTENSIVE EMERGENCY Status: Acute (3) Obesity Code(s): E66.9 - OBESITY, UNSPECIFIED Status: Chronic Qualifiers: Obesity classification: adult class 3 (BMI >= 40) Body mass index: BMI 45.0-49.9 - Plan is off cardene drip, labetalol, lisinopril and hydralazine. on nimodipine q4h with iv fluids cerebral angiogram did not reveal any aneurysm hemo/neurostable, has neurochecks q1h d/w daughter at bedside oral diet, ongoing PT eval will likely need sleep studies to r/o sleep apnea/obesity hypovent syndrome may tx to stroke unit if cleared by NSX may need empiric cpap when sleeping, is at risk of resp failure due to increased somnolence from SAH as well.
--- NOTE | 2020-09-18 13:26 | PRG ---
DATE OF SERVICE: 09/18/2020 The patient is 5 days into her hospital stay for angiography negative subarachnoid hemorrhage. She is 2 days status post undergoing cerebral angiography with Dr. Monsalve. She has remained in the critical care unit for close monitoring during the vasospasm window. She is currently on 125 mL/h of normal saline and on nimodipine q.4 hours. This morning the patient was sleeping comfortably in bed. She awakened easily to verbal stimulus and responded to questions appropriately. She denied headache, pain, dizziness, nausea, vomiting, shortness of breath, or any other complaints. She demonstrates full strength throughout her bilateral upper and lower extremity myotomes. No neurologic deficits appreciated. It is important for patient to remain in the critical care unit for close monitoring during the vasospasm window. Continue with hourly neurologic checks. She has been taken off nicardipine drip and other blood pressure medications. Our team is fine with liberalizing her systolic blood pressure up to 180 and attempt to minimize risk for vasospasm. Please call for any neurologic changes or other concerns. This was a 15-minute subsequent visit note in which greater than 50% of the time was spent in review of records, review of imaging, evaluation, examination, and formulation of a plan. The remaining time was spent in counseling and coordination of care. Job ID: [id number] [facility]
[2020-09-18] MEDS ORDERED: Lisinopril 20 MG TAB PO SCH (15:15)
[2020-09-18] MEDS: hydrALAZINE 20 MG/ML VIAL SLOW IVP PRN ×2 (15:19→17:02)
[2020-09-18] MEDS: Acetaminophen 325 MG TAB PO PRN (22:08)
[2020-09-19] MEDS: niMODipine 30 MG CAP PO SCH ×6 (01:25→20:09)
[2020-09-19] MEDS: Labetalol HCl 100 MG/20 ML VIAL SLOW IVP PRN ×11 (03:35→23:03)
[2020-09-19] MEDS: hydrALAZINE 20 MG/ML VIAL SLOW IVP PRN ×7 (04:43→22:04)
[2020-09-19 05:01] LABS: Anion Gap 14 mmol/L (10-20); BUN (Urea Nitrogen) 7 mg/dL (9.8-20.1); Calc. Creatinine Clearance 178 mL/min (70-130); Calcium 9.1 mg/dL (7.8-10.44); Carbon Dioxide 24 mmol/L (22-29); Chloride 103 mmol/L (98-107); Estimated GFR-MDRD Greater than 90; Glucose 112 mg/dL (70-105); Potassium 3.6 mmol/L (3.5-5.1); Sodium 137 mmol/L (136-145)
[2020-09-19 05:18] LABS: #Eosinphils 0.1 thou/uL (0.0-0.7); #Lymphocytes 1.6 thou/uL (1.20-3.40); #Monocytes 1.2 thou/uL (0.11-0.59); #Neutrophils 9.1 thou/uL (1.40-6.50); %Basophils 0.3 % (0.0-1.0); %Eosinophils 0.6 % (0.0-10.0); %Lymphocytes 13.6 % (21.0-51.0); %Monocytes 9.7 % (0.0-10.0); %Neutrophils 75.8 % (42.0-75.0); Hemoglobin 11.2 g/dL (12.0-16.0); Mean Corpuscular HGB CONC 30.8 g/dL (32.0-36.0); Mean Corpuscular Hemoglobin 22.8 pg (27.0-31.0); Mean Corpuscular Volume 74.1 fL (78.0-98.0); Mean Platelet Volume 9.4 fL (7.4-10.4); Platelet Count 220 thou/uL (130-400); RBC Distribution Width 12.8 % (11.5-14.5); Red Blood Cell (RBC) Count 4.93 mill/uL (4.20-5.40)
--- NOTE | 2020-09-19 07:51 | PRG ---
DATE OF SERVICE: 09/19/2020 SUBJECTIVE: The patient was taken off nicardipine yesterday, still has a labile blood pressure. OBJECTIVE: VITAL SIGNS: Temperature 98.7, pulse 80, blood pressure 160/68, O2 saturation 97%. GENERAL: She is in no distress. HEENT: Unremarkable. NECK: No JVD. CHEST: Clear. CARDIAC: S1 and S2, regular. ABDOMEN: Soft. EXTREMITIES: No edema. LABORATORY DATA: White blood cell count 12, hematocrit 36.5, and platelet count 220. Sodium 137, potassium 3.6, chloride 103, CO2 of 24, BUN 7, creatinine 0.6, and glucose 112. ASSESSMENT: 1. Subarachnoid hemorrhage. 2. Vasospasm. PLAN: Monitor in ICU as long as Neurosurgery thinks it is necessary. The patient is on nimodipine and appropriate antihypertensive medication. Job ID: [id number]
[2020-09-19] MEDS: Sodium Chloride 0.9% 1,000 ML IV SCH ×4 (07:58→18:10)
[2020-09-19] MEDS: Potassium Chloride 20 MEQ TAB PO SCH ×2 (08:51→17:39)
[2020-09-19] MEDS ORDERED: Lisinopril 20 MG TAB PO SCH (09:00)
--- NOTE | 2020-09-19 14:24 | PDOC.HOSPP ---
- Subjective Encounter Date: 09/19/20 Encounter Time: 10:15 Subjective: awake, no headache or specific weakness daughter at bedside didn't eat her breakfast this am - Objective Vital Signs & Weight: Vital Signs (12 hours) Temp Pulse BP Pulse Ox 09/19/20 14:01 88 182/64 H 09/19/20 12:12 73 188/62 H 09/19/20 12:00 99.5 F 09/19/20 11:40 87 192/127 H 09/19/20 09:01 87 192/127 H 09/19/20 08:51 194/88 H 09/19/20 08:00 98 09/19/20 07:50 88 193/118 H 09/19/20 07:00 99.4 F 09/19/20 04:43 76 208/96 H 09/19/20 04:00 98.7 F 09/19/20 03:35 68 209/96 H Weight Weight 242 lb 1.081 oz Most Recent Monitor Data Heart Rate from ECG 81 NIBP 111/81 NIBP BP-Mean 91 Respiration from ECG 26 SpO2 100 I&O: 09/18/20 09/19/20 09/20/20 06:59 06:59 06:59 Intake Total 4503 4050 480 Output Total 8570 8916 1961 Fmihmja -934 -278 -144 Result Diagrams: 09/19/20 04:55 09/19/20 04:25 Hospitalist ROS - Medication Medications: Active Medications Generic Name Dose Route Start Last Admin Trade Name Freq PRN Reason Stop Dose Admin Acetaminophen 650 mg 09/13/20 23:43 09/18/20 22:08 Acetaminophen 325 Mg Tab PO 650 mg Q4H PRN Administration Headache/Fever/Mild Pain (1-3) Hydrocodone Bitart/Acetaminophen 1 tab 09/13/20 23:43 09/14/20 15:57 Hydrocodone/Acetaminophen 7.5/325 Mg Tablet PO 1 tab Q4H PRN Administration Moderate Pain (4-6) Hydralazine HCl 10 mg 09/14/20 10:49 09/19/20 12:12 Hydralazine 20 Mg/Ml Vial SLOW IVP 10 mg Q30MIN PRN Administration SBP Greater Than 180 Sodium Chloride 1,000 mls @ 125 mls/hr 09/16/20 11:15 09/19/20 07:59 Normal Saline 0.9% IV 1,000 mls .Q8H JUNITO Administration Labetalol HCl 10 mg 09/14/20 10:51 09/19/20 14:01 Labetalol Hcl 100 Mg/20 Ml Vial SLOW IVP 10 mg Q10MIN PRN Administration SBP Greater Than 180 Morphine Sulfate 2 mg 09/13/20 23:43 09/14/20 11:11 Morphine 2 Mg/Ml Vial SLOW IVP 2 mg Q1H PRN Administration Severe Pain (7-10) Nimodipine 60 mg 09/14/20 13:00 09/19/20 13:16 Nimodipine 30 Mg Cap PO 60 mg Q4HR JUNITO Administration Ondansetron HCl 4 mg 09/13/20 23:43 09/14/20 07:45 Ondansetron Pf 4 Mg/2 Ml Vial IVP 4 mg Q6H PRN Administration Nausea/Vomiting Potassium Chloride 40 meq 09/18/20 08:00 09/19/20 08:51 Potassium Chloride 20 Meq Tab PO 40 meq BID-WM JUNITO Administration Sodium Chloride 10 ml 09/14/20 21:00 09/19/20 09:03 Flush - Normal Saline 10 Ml Syringe IVF Not Given Q12HR JUNITO - Exam General Appearance: awake alert Eye: PERRL, anicteric sclera ENT: no oropharyngeal lesions, moist mucosa Neck: supple, no JVD Heart: RRR, no murmur Respiratory: no wheezes, no rales Gastrointestinal: soft, non-tender, non-distended, normal bowel sounds Extremities: no cyanosis, no edema Neurological: cranial nerve grossly intact, no focal deficits Psychiatric: A&O x 3 Hosp A/P (1) Subarachnoid hemorrhage Code(s): I60.9 - NONTRAUMATIC SUBARACHNOID HEMORRHAGE, UNSPECIFIED Status: Acute (2) Hypertensive emergency Code(s): I16.1 - HYPERTENSIVE EMERGENCY Status: Acute (3) Obesity Code(s): E66.9 - OBESITY, UNSPECIFIED Status: Chronic Qualifiers: Obesity classification: adult class 3 (BMI >= 40) Body mass index: BMI 45.0-49.9 - Plan is off cardene drip, labetalol and hydralazine. on nimodipine q4h, lisinopril with iv fluids cerebral angiogram did not reveal any aneurysm hemo/neurostable, has neurochecks q1h d/w daughter at bedside oral diet, ongoing PT eval will likely need sleep studies to r/o sleep apnea/obesity hypovent syndrome may tx to stroke unit if cleared by NSX has had lots of output x 3 days ranging from 3.5 L to 4.5L may need empiric cpap when sleeping, is at risk of resp failure due to increased somnolence from SAH as well.
--- NOTE | 2020-09-19 16:16 | PRG ---
DATE OF SERVICE: 09/19/2020 This is a 25-minute subsequent visit note, in which 25 minutes were spent reviewing the imaging record, evaluation, examination of the patient, greater than 50% time was spent in counseling. Ms. Bello is now 6 days into her bleed and she is now at the peak of vasospasm day, which typically lasts from days 3 to 12. She did have vasospasm on her cerebral angiogram we are allowing for permissive hypertension up to 180/90 and she is doing this just fine. I will add evening dose to her lisinopril, so that she will now be on lisinopril 20 mg twice daily. She also has p.r.n. hydralazine and labetalol, which is being utilized. The patient is neurologically intact. Her sodium is 137. She has demonstrated no evidence of salt wasting. She is COVID positive. Overall, I am very pleased with how she is doing. This is an angiogram negative subarachnoid hemorrhage, while it certainly appears aneurysmal, both CTA and formal cerebral angiography demonstrated no evidence of aneurysm. We will continue to closely watch her and we may need to add as she exits the vasospasm window over the next 6 days, gentle oral antihypertensives. Job ID: [id number]
[2020-09-19] MEDS: Lisinopril 20 MG TAB PO SCH (20:09)
[2020-09-20] MEDS: niMODipine 30 MG CAP PO SCH ×6 (00:06→20:07)
[2020-09-20] MEDS: Labetalol HCl 100 MG/20 ML VIAL SLOW IVP PRN ×6 (00:06→09:25)
[2020-09-20] MEDS: Sodium Chloride 0.9% 1,000 ML IV SCH ×3 (04:15→18:17)
[2020-09-20 06:35] LABS: #Eosinphils 0.1 thou/uL (0.0-0.7); #Monocytes 1.4 thou/uL (0.11-0.59); #Neutrophils 8.7 thou/uL (1.40-6.50); %Basophils 0.4 % (0.0-1.0); %Eosinophils 0.6 % (0.0-10.0); %Lymphocytes 16.3 % (21.0-51.0); %Monocytes 11.2 % (0.0-10.0); %Neutrophils 71.6 % (42.0-75.0); Hemoglobin 10.5 g/dL (12.0-16.0); Mean Corpuscular HGB CONC 31.1 g/dL (32.0-36.0); Mean Corpuscular Hemoglobin 22.7 pg (27.0-31.0); Mean Platelet Volume 9.5 fL (7.4-10.4); Platelet Count 230 thou/uL (130-400); RBC Distribution Width 12.8 % (11.5-14.5); Red Blood Cell (RBC) Count 4.62 mill/uL (4.20-5.40); White Blood Cell (WBC) Count 12.1 thou/uL (4.8-10.8)
[2020-09-20 06:38] LABS: Anion Gap 15 mmol/L (10-20); BUN (Urea Nitrogen) 12 mg/dL (9.8-20.1); Calc. Creatinine Clearance 150 mL/min (70-130); Calcium 9.2 mg/dL (7.8-10.44); Carbon Dioxide 22 mmol/L (22-29); Chloride 104 mmol/L (98-107); Estimated GFR-MDRD Greater than 90; Glucose 102 mg/dL (70-105); Potassium 3.7 mmol/L (3.5-5.1); Sodium 137 mmol/L (136-145)
[2020-09-20 08:27] LABS: Hypochromia SLIGHT = 6-15 cells (100X) (0-5/hpf); MDiff Complete? YES; Microcytosis SLIGHT = 6-15 cells (100X) (0-5/hpf); Platelet Morphology Comment Appears Adequate; Polychromasia SLIGHT = 2-3 cells (100X) (0-2/hpf)
--- NOTE | 2020-09-20 09:04 | PRG ---
DATE OF SERVICE: 09/20/2020 SUBJECTIVE: The patient remains in the ICU for monitoring for cerebral vasospasm. Right now, she is not requiring any drip therapy. OBJECTIVE: VITAL SIGNS: Temperature 99.2, pulse 82, blood pressure 168/93, and O2 saturation 100%. HEENT: Unremarkable. NECK: No JVD. CHEST: Clear. CARDIAC: S1 and S2. Regular. ABDOMEN: Soft. EXTREMITIES: No edema. LABORATORY DATA: White blood cell count 12, hematocrit 33.7, and platelet count 230. Sodium 137, potassium 3.7, chloride 104, CO2 of 22, BUN 12, creatinine 0.7, and glucose 102. ASSESSMENT: 1. Subarachnoid hemorrhage. 2. Resolved vasospasm. PLAN: Doing well from a pulmonary standpoint. We will continue to follow while she is in the ICU, but we will sign off when she goes to the floor. Job ID: [id number]
[2020-09-20] MEDS: Potassium Chloride 20 MEQ TAB PO SCH ×2 (10:02→18:06)
[2020-09-20] MEDS: Labetalol 100 MG TAB PO SCH ×2 (10:03→20:07)
[2020-09-20] MEDS: Lisinopril 20 MG TAB PO SCH ×2 (10:04→20:07)
--- NOTE | 2020-09-20 10:12 | PRG ---
DATE OF SERVICE: This is a 15 minutes subsequent visit note, in which 15 minutes were spent reviewing the imaging record, evaluation, examination of the patient and formulation of plan. Greater than 50% time was spent in counseling on Sharmin Bello. Ms. Padron systolic and diastolic pressures have been in the 160-190 range over 70-90 range. As such, I will add labetalol 200 mg orally twice daily. She is on day 7 of her bleed and as such, remains in the vasospasm window. I will get an ultrasound of the legs. She remains neurologically intact and this morning shows no signs of drowsiness. We will see how she does through the weekend with likely transfer to the floor on Wednesday as it will be day 10. Obviously, we will consider a repeat CTA at some point; although, a CTA MRI and formal angiogram of all been negative. For this angiogram negative aneurysmal pattern subarachnoid hemorrhage. Job ID: [id number]
--- NOTE | 2020-09-20 11:39 | ULT ---
EXAM: Bilateral lower extremity venous duplex ultrasound with color and spectral Doppler imaging: HISTORY: Immobilization, minimal edema. COMPARISON: 09/16/2020 FINDINGS: Exam performed from the groin to the ankle including the visualized greater saphenous, common femoral , superficial femoral, profunda femoral, popliteal, trifurcation, and posterior tibial veins. There is phasic flow with normal compressibility and normal augmentation at all examined levels. No evidence for intraluminal thrombus. IMPRESSION: No evidence for deep venous thrombosis.
--- NOTE | 2020-09-20 14:26 | PDOC.HOSPP ---
- Subjective Encounter Date: 09/20/20 Encounter Time: 09:45 Subjective: more drowsy this am, responds well to verbal stimuli, is moving all extremities didn't eat her breakfast - Objective Vital Signs & Weight: Vital Signs (12 hours) Temp Pulse BP Pulse Ox 09/20/20 12:00 99.0 F 09/20/20 10:04 196/67 H 09/20/20 10:03 78 196/67 H 09/20/20 09:25 78 196/67 H 09/20/20 08:00 100 09/20/20 07:00 99.2 F 09/20/20 06:26 72 195/74 H 09/20/20 05:07 76 187/72 H 09/20/20 04:00 99.3 F Weight Weight 242 lb 1.081 oz Most Recent Monitor Data Heart Rate from ECG 78 NIBP 127/64 NIBP BP-Mean 85 Respiration from ECG 19 SpO2 100 I&O: 09/19/20 09/20/20 09/21/20 06:59 06:59 06:59 Intake Total 4056 3455 240 Output Total 4575 2300 1645 Balance -519 1155 -3607 Result Diagrams: 09/20/20 05:46 09/20/20 05:46 Hospitalist ROS - Medication Medications: Active Medications Generic Name Dose Route Start Last Admin Trade Name Freq PRN Reason Stop Dose Admin Acetaminophen 650 mg 09/13/20 23:43 09/18/20 22:08 Acetaminophen 325 Mg Tab PO 650 mg Q4H PRN Administration Headache/Fever/Mild Pain (1-3) Hydrocodone Bitart/Acetaminophen 1 tab 09/13/20 23:43 09/14/20 15:57 Hydrocodone/Acetaminophen 7.5/325 Mg Tablet PO 1 tab Q4H PRN Administration Moderate Pain (4-6) Hydralazine HCl 10 mg 09/14/20 10:49 09/19/20 22:04 Hydralazine 20 Mg/Ml Vial SLOW IVP 10 mg Q30MIN PRN Administration SBP Greater Than 180 Sodium Chloride 1,000 mls @ 125 mls/hr 09/16/20 11:15 09/20/20 11:00 Normal Saline 0.9% IV 1,000 mls .Q8H JUNITO Administration Labetalol HCl 10 mg 09/14/20 10:51 09/20/20 09:25 Labetalol Hcl 100 Mg/20 Ml Vial SLOW IVP 10 mg Q10MIN PRN Administration SBP Greater Than 180 Labetalol HCl 200 mg 09/20/20 09:00 09/20/20 10:03 Labetalol 100 Mg Tab PO 200 mg BID JUNITO Administration Lisinopril 20 mg 09/19/20 21:00 09/20/20 10:04 Lisinopril 20 Mg Tab PO 20 mg BID JUNITO Administration Morphine Sulfate 2 mg 09/13/20 23:43 09/14/20 11:11 Morphine 2 Mg/Ml Vial SLOW IVP 2 mg Q1H PRN Administration Severe Pain (7-10) Nimodipine 60 mg 09/14/20 13:00 09/20/20 13:32 Nimodipine 30 Mg Cap PO 60 mg Q4HR JUNITO Administration Ondansetron HCl 4 mg 09/13/20 23:43 09/14/20 07:45 Ondansetron Pf 4 Mg/2 Ml Vial IVP 4 mg Q6H PRN Administration Nausea/Vomiting Potassium Chloride 40 meq 09/18/20 08:00 09/20/20 10:02 Potassium Chloride 20 Meq Tab PO 40 meq BID-WM JUNITO Administration Sodium Chloride 10 ml 09/14/20 21:00 09/20/20 12:11 Flush - Normal Saline 10 Ml Syringe IVF Not Given Q12HR JUNITO - Exam Eye: PERRL, anicteric sclera ENT: no oropharyngeal lesions, moist mucosa Neck: supple, no JVD Heart: RRR, no murmur Respiratory: no wheezes, no rales Gastrointestinal: soft, non-tender, non-distended, normal bowel sounds Extremities: no cyanosis, no edema Neurological: cranial nerve grossly intact, no focal deficits Hosp A/P (1) Subarachnoid hemorrhage Code(s): I60.9 - NONTRAUMATIC SUBARACHNOID HEMORRHAGE, UNSPECIFIED Status: Acute (2) Hypertensive emergency Code(s): I16.1 - HYPERTENSIVE EMERGENCY Status: Resolved (3) Obesity Code(s): E66.9 - OBESITY, UNSPECIFIED Status: Chronic Qualifiers: Obesity classification: adult class 3 (BMI >= 40) Body mass index: BMI 45.0-49.9 (4) NATACHA (obstructive sleep apnea) Code(s): G47.33 - OBSTRUCTIVE SLEEP APNEA (ADULT) (PEDIATRIC) Status: Suspected (5) Obesity hypoventilation syndrome Code(s): E66.2 - MORBID (SEVERE) OBESITY WITH ALVEOLAR HYPOVENTILATION Status: Suspected - Plan is off cardene drip and hydralazine. on nimodipine q4h, lisinopril, labetalol with iv fluids cerebral angiogram did not reveal any aneurysm hemo/neurostable, has neurochecks q1h d/w daughter at bedside oral diet, ongoing PT eval will likely need sleep studies to r/o sleep apnea/obesity hypovent syndrome may tx to stroke unit if cleared by NSX may need empiric cpap when sleeping, is at risk of resp failure due to increased somnolence from SAH as well.
[2020-09-21] MEDS: niMODipine 30 MG CAP PO SCH ×6 (00:01→20:58)
[2020-09-21] MEDS: Labetalol HCl 100 MG/20 ML VIAL SLOW IVP PRN ×7 (03:19→20:06)
[2020-09-21 04:01] LABS: #Eosinphils 0.1 thou/uL (0.0-0.7); #Monocytes 1.2 thou/uL (0.11-0.59); #Neutrophils 8.1 thou/uL (1.40-6.50); %Basophils 0.3 % (0.0-1.0); %Eosinophils 1.2 % (0.0-10.0); %Lymphocytes 17.3 % (21.0-51.0); %Monocytes 10.3 % (0.0-10.0); %Neutrophils 70.9 % (42.0-75.0); Hemoglobin 10.4 g/dL (12.0-16.0); Mean Corpuscular Hemoglobin 22.6 pg (27.0-31.0); Mean Corpuscular Volume 73.1 fL (78.0-98.0); Mean Platelet Volume 9.6 fL (7.4-10.4); Platelet Count 218 thou/uL (130-400); RBC Distribution Width 12.6 % (11.5-14.5); Red Blood Cell (RBC) Count 4.59 mill/uL (4.20-5.40); White Blood Cell (WBC) Count 11.4 thou/uL (4.8-10.8)
[2020-09-21] MEDS: Sodium Chloride 0.9% 1,000 ML IV SCH ×3 (04:04→21:01)
[2020-09-21 04:18] LABS: Anion Gap 14 mmol/L (10-20); BUN (Urea Nitrogen) 10 mg/dL (9.8-20.1); Calc. Creatinine Clearance 154 mL/min (70-130); Calcium 9.4 mg/dL (7.8-10.44); Carbon Dioxide 24 mmol/L (22-29); Chloride 101 mmol/L (98-107); Estimated GFR-MDRD Greater than 90; Glucose 115 mg/dL (70-105); Potassium 4.2 mmol/L (3.5-5.1); Sodium 135 mmol/L (136-145)
[2020-09-21] MEDS: Potassium Chloride 20 MEQ TAB PO SCH (09:10)
[2020-09-21] MEDS: Labetalol 100 MG TAB PO SCH ×2 (09:11→20:58)
[2020-09-21] MEDS: Lisinopril 20 MG TAB PO SCH ×2 (09:11→20:59)
--- NOTE | 2020-09-21 09:15 | PRG ---
DATE OF SERVICE: 09/21/2020 SUBJECTIVE: This is a 59-year-old female, status post subarachnoid hemorrhage, though no obvious source of the subarachnoid hemorrhage. She has had labile hypertension. OBJECTIVE: VITAL SIGNS: Pulse 75, blood pressure 194/105, respirations 28, sats 100% on room air. GENERAL: She is awake, alert, responsive. CHEST: No wheezing. No crackles. CARDIAC: Normal S1, S2. No gallops. LABORATORY DATA: Labs unremarkable. ASSESSMENT: Subarachnoid hemorrhage hypertension. Multiple medications including nimodipine, Zestril, labetalol. Continue supportive care. We will follow while in the ICU. Job ID: [id number]
--- NOTE | 2020-09-21 11:17 | PRG ---
DATE OF SERVICE: 09/21/2020 The patient was seen and examined. I agree with Dunia Randhawa's evaluation on 09/21/2020. Ms. Bello is resting comfortably. She awakens easily and interacts with the examiner. Her blood pressure has been quite elevated and she recently received medication for this. We are going to continue her in the ICU for her angiographically negative subarachnoid hemorrhage through the weekend. Job ID: [id number]
--- NOTE | 2020-09-21 12:27 | PDOC.HOSPP ---
- Subjective Encounter Date: 09/21/20 Encounter Time: 10:15 Subjective: Patient seen and examined bedside today, patient is hypertensive, patient has poor p.o. intake, otherwise no overnight event - Objective Vital Signs & Weight: Vital Signs (12 hours) Temp Pulse BP Pulse Ox 09/21/20 12:00 99.3 F 09/21/20 11:23 72 188/88 H 09/21/20 09:11 77 208/90 H 09/21/20 08:00 100 09/21/20 07:24 75 194/105 H 09/21/20 07:00 98.6 F 09/21/20 04:04 72 184/86 H 09/21/20 04:00 98.1 F 09/21/20 03:19 73 190/89 H Weight Weight 242 lb 1.081 oz Most Recent Monitor Data Heart Rate from ECG 71 NIBP 159/68 NIBP BP-Mean 98 Respiration from ECG 27 SpO2 100 I&O: 09/20/20 09/21/20 09/22/20 06:59 06:59 06:59 Intake Total 3455 3773 120 Output Total 2300 3690 2045 Balance 1155 83 -1925 Result Diagrams: 09/21/20 03:04 09/21/20 03:04 Radiology Reviewed by me: Yes EKG Reviewed by me: Yes Hospitalist ROS - Review of Systems ENT: denies: ear pain, ear discharge, nose pain, nose discharge, nose congestion, mouth pain, mouth swelling, throat pain, throat swelling, other Respiratory: denies: cough, dry, shortness of breath, hemoptysis, SOB with exc ertion, pleuritic pain, sputum, wheezing, other Cardiovascular: denies: chest pain, palpitations, orthopnea, paroxysmal noc. dyspnea, edema, light headedness, other Gastrointestinal: denies: nausea, vomiting, abdominal pain, diarrhea, constipation, melena, hematochezia, other Genitourinary: denies: dysuria, frequency, incontinence, hematuria, retention, other Musculoskeletal: denies: neck pain, shoulder pain, arm pain, back pain, hand pain, leg pain, foot pain, other - Medication Medications: Active Medications Generic Name Dose Route Start Last Admin Trade Name Freq PRN Reason Stop Dose Admin Acetaminophen 650 mg 09/13/20 23:43 09/18/20 22:08 Acetaminophen 325 Mg Tab PO 650 mg Q4H PRN Administration Headache/Fever/Mild Pain (1-3) Hydrocodone Bitart/Acetaminophen 1 tab 09/13/20 23:43 09/14/20 15:57 Hydrocodone/Acetaminophen 7.5/325 Mg Tablet PO 1 tab Q4H PRN Administration Moderate Pain (4-6) Hydralazine HCl 10 mg 09/14/20 10:49 09/19/20 22:04 Hydralazine 20 Mg/Ml Vial SLOW IVP 10 mg Q30MIN PRN Administration SBP Greater Than 180 Sodium Chloride 1,000 mls @ 125 mls/hr 09/16/20 11:15 09/21/20 11:28 Normal Saline 0.9% IV 1,000 mls .Q8H JUNITO Administration Labetalol HCl 10 mg 09/14/20 10:51 09/21/20 11:23 Labetalol Hcl 100 Mg/20 Ml Vial SLOW IVP 10 mg Q10MIN PRN Administration SBP Greater Than 180 Labetalol HCl 200 mg 09/20/20 09:00 09/21/20 09:11 Labetalol 100 Mg Tab PO 200 mg BID JUNITO Administration Lisinopril 20 mg 09/19/20 21:00 09/21/20 09:11 Lisinopril 20 Mg Tab PO 20 mg BID JUNITO Administration Morphine Sulfate 2 mg 09/13/20 23:43 09/14/20 11:11 Morphine 2 Mg/Ml Vial SLOW IVP 2 mg Q1H PRN Administration Severe Pain (7-10) Nimodipine 60 mg 09/14/20 13:00 09/21/20 09:10 Nimodipine 30 Mg Cap PO 60 mg Q4HR JUNITO Administration Ondansetron HCl 4 mg 09/13/20 23:43 09/14/20 07:45 Ondansetron Pf 4 Mg/2 Ml Vial IVP 4 mg Q6H PRN Administration Nausea/Vomiting Potassium Chloride 40 meq 09/18/20 08:00 09/21/20 09:10 Potassium Chloride 20 Meq Tab PO 40 meq BID-WM JUNITO Administration Sodium Chloride 10 ml 09/14/20 21:00 09/21/20 09:12 Flush - Normal Saline 10 Ml Syringe IVF 10 ml Q12HR JUNITO Administration - Exam General Appearance: NAD, awake alert Eye: PERRL, anicteric sclera ENT: normocephalic atraumatic, no oropharyngeal lesions Neck: supple, symmetric, no JVD, no thyromegaly Heart: RRR, no murmur, no gallops, no rubs Respiratory: CTAB, no wheezes, no rales, no ronchi Gastrointestinal: soft, non-tender, non-distended, normal bowel sounds Gastrointestinal - other findings: Obesity noted Extremities: no cyanosis, no clubbing, no edema Skin: normal turgor, no lesions Neurological: cranial nerve grossly intact Neurological - other findings: Patient moves all 4 limbs Musculoskeletal: normal tone, normal strength Psychiatric: normal affect, normal behavior Hosp A/P (1) Subarachnoid hemorrhage Code(s): I60.9 - NONTRAUMATIC SUBARACHNOID HEMORRHAGE, UNSPECIFIED Status: Acute (2) Obesity Code(s): E66.9 - OBESITY, UNSPECIFIED Status: Chronic Qualifiers: Obesity classification: adult class 3 (BMI >= 40) Body mass index: BMI 45. 0-49.9 (3) NATACHA (obstructive sleep apnea) Code(s): G47.33 - OBSTRUCTIVE SLEEP APNEA (ADULT) (PEDIATRIC) Status: Suspected (4) Obesity hypoventilation syndrome Code(s): E66.2 - MORBID (SEVERE) OBESITY WITH ALVEOLAR HYPOVENTILATION Status: Suspected (5) Hypertensive emergency Code(s): I16.1 - HYPERTENSIVE EMERGENCY Status: Resolved - Plan old records reviewed/req Continue IV fluid NS to prevent vasospasm, Continue morphine 60 mg every 4 hourly, Continue labetalol 200 mg twice daily Continue lisinopril 20 mg twice daily We will add spironolactone 50 mg daily Uncontrolled hypertension and hypokalemia concerning for underlying secondary hypertension, will check aldosterone and plasma renin activity before starting Aldactone
[2020-09-21] MEDS ORDERED: Spironolactone 25 MG TAB PO SCH (12:30)
[2020-09-22] MEDS: niMODipine 30 MG CAP PO SCH ×6 (01:17→20:36)
[2020-09-22] MEDS: Labetalol HCl 100 MG/20 ML VIAL SLOW IVP PRN ×7 (01:25→19:35)
[2020-09-22] MEDS: Sodium Chloride 0.9% 1,000 ML IV SCH ×3 (04:41→19:31)
[2020-09-22] MEDS: Acetaminophen 325 MG TAB PO PRN (06:30)
--- NOTE | 2020-09-22 07:31 | PRG ---
DATE OF SERVICE: 09/21/2020 SUBJECTIVE: The patient is now 8 days out from a subarachnoid hemorrhage, which was CTA negative. She has been monitored in the ICU and they have been trending up her blood pressure and treating her with hyperdynamic therapy. The patient has had no overnight events. Her blood pressure has been allowed to elevate in the range of 160 to 190. It is currently SBP at 208. She was just given her a.m. p.o. HTN medications. OBJECTIVE: On exam this morning, she is awake and alert. She is oriented to person and place. She is moving all 4s without any difficulty and has good strength throughout. Her pupils are equal and reactive and her extraocular movements are intact. PLAN: We will continue to monitor her closely in the ICU. She remains at risk for vasospasm. We will continue her hyperdynamic therapy as well as continue blood pressure range of systolic 160 to 190 over 70 to 90 diastolic. I anticipate transfer to the floor possibly early next week. Job ID: [id number] MTDD
[2020-09-22] MEDS ORDERED: Spironolactone 25 MG TAB PO SCH (08:00)
[2020-09-22] MEDS: Labetalol 100 MG TAB PO SCH ×2 (08:01→20:36)
[2020-09-22] MEDS: Lisinopril 20 MG TAB PO SCH ×2 (08:02→20:36)
[2020-09-22 08:10] LABS: #Basophils 0.1 thou/uL (0.0-0.2); #Eosinphils 0.2 thou/uL (0.0-0.7); #Lymphocytes 1.6 thou/uL (1.20-3.40); #Monocytes 0.8 thou/uL (0.11-0.59); #Neutrophils 6.9 thou/uL (1.40-6.50); %Basophils 0.6 % (0.0-1.0); %Eosinophils 2.5 % (0.0-10.0); %Lymphocytes 16.7 % (21.0-51.0); %Monocytes 8.8 % (0.0-10.0); %Neutrophils 71.5 % (42.0-75.0); Hemoglobin 11.3 g/dL (12.0-16.0); Mean Corpuscular HGB CONC 31.2 g/dL (32.0-36.0); Mean Corpuscular Hemoglobin 22.6 pg (27.0-31.0); Mean Corpuscular Volume 72.6 fL (78.0-98.0); Mean Platelet Volume 9.2 fL (7.4-10.4); Platelet Count 222 thou/uL (130-400); RBC Distribution Width 12.6 % (11.5-14.5); White Blood Cell (WBC) Count 9.6 thou/uL (4.8-10.8)
[2020-09-22 08:28] LABS: Anion Gap 15 mmol/L (10-20); BUN (Urea Nitrogen) 9 mg/dL (9.8-20.1); Calc. Creatinine Clearance 162 mL/min (70-130); Calcium 9.7 mg/dL (7.8-10.44); Carbon Dioxide 24 mmol/L (22-29); Chloride 100 mmol/L (98-107); Estimated GFR-MDRD Greater than 90; Glucose 97 mg/dL (70-105); Sodium 135 mmol/L (136-145)
--- NOTE | 2020-09-22 09:55 | PRG ---
DATE OF SERVICE: 09/22/2020 I visited the patient in the ICU. She has not had any overnight events. Her blood pressure is currently 177/81. On exam, she awakens easily to my voice. She is able to tell me her name, birthday, but not her location. She moves all 4s easily without any difficulty. Pupils are equal and reactive. The patient has remained neurologically stable and her blood pressure has remained within our recommended range. We will continue to follow along closely. Depending on her progress, she may be able to transition out of the ICU tomorrow. Job ID: [id number]
--- NOTE | 2020-09-22 09:56 | PRG ---
DATE OF SERVICE: 09/22/2020 SUBJECTIVE: Sharmin Bello is a 59-year-old and morbidly obese female, remains in the ICU. OBJECTIVE: VITAL SIGNS: Temperature is 99, saturations are 94% on room air, pulse 67, blood pressure 177/81, respiratory rate 18. CHEST: No wheezing. No crackles. CARDIAC: Normal S1 and S2. No gallops. ABDOMEN: No masses. LABORATORY DATA: Unremarkable. IMPRESSION: Status post subarachnoid hemorrhage. Essential hypertension. PLAN: PT, supportive care. Pulmonary is going to follow in the ICU. Job ID: [id number]
--- NOTE | 2020-09-22 12:26 | PDOC.HOSPP ---
- Subjective Encounter Date: 09/22/20 Encounter Time: 10:00 Subjective: Patient seen and examined bedside today, no overnight event, no new complaint - Objective Vital Signs & Weight: Vital Signs (12 hours) Temp Pulse BP Pulse Ox 09/22/20 11:21 67 189/93 H 09/22/20 08:02 180/94 H 09/22/20 08:01 69 180/94 H 09/22/20 08:00 99.1 F 95 09/22/20 07:06 97 09/22/20 04:40 82 200/88 H 09/22/20 04:00 98.9 F 09/22/20 01:25 82 194/100 H Weight Weight 242 lb 1.081 oz Most Recent Monitor Data Heart Rate from ECG 64 NIBP 198/72 NIBP BP-Mean 114 Respiration from ECG 19 SpO2 100 I&O: 09/21/20 09/22/20 09/23/20 06:59 06:59 06:59 Intake Total 3773 3852 60 Output Total 3690 6685 1035 Balance 83 -2833 -975 Result Diagrams: 09/22/20 07:58 09/22/20 07:58 EKG Reviewed by me: Yes Hospitalist ROS - Review of Systems ENT: denies: ear pain, ear discharge, nose pain, nose discharge, nose congestion, mouth pain, mouth swelling, throat pain, throat swelling, other Respiratory: denies: cough, dry, shortness of breath, hemoptysis, SOB with excertion, pleuritic pain, sputum, wheezing, other Cardiovascular: denies: chest pain, palpitations, orthopnea, paroxysmal noc. dyspnea, edema, light headedness, other Gastrointestinal: denies: nausea, vomiting, abdominal pain, diarrhea, constipation, melena, hematochezia, other Genitourinary: denies: dysuria, frequency, incontinence, hematuria, retention, o ther - Medication Medications: Active Medications Generic Name Dose Route Start Last Admin Trade Name Freq PRN Reason Stop Dose Admin Acetaminophen 650 mg 09/13/20 23:43 09/22/20 06:30 Acetaminophen 325 Mg Tab PO 650 mg Q4H PRN Administration Headache/Fever/Mild Pain (1-3) Hydrocodone Bitart/Acetaminophen 1 tab 09/13/20 23:43 09/14/20 15:57 Hydrocodone/Acetaminophen 7.5/325 Mg Tablet PO 1 tab Q4H PRN Administration Moderate Pain (4-6) Hydralazine HCl 10 mg 09/14/20 10:49 09/19/20 22:04 Hydralazine 20 Mg/Ml Vial SLOW IVP 10 mg Q30MIN PRN Administration SBP Greater Than 180 Sodium Chloride 1,000 mls @ 125 mls/hr 09/16/20 11:15 09/22/20 10:09 Normal Saline 0.9% IV 1,000 mls .Q8H JUNITO Administration Labetalol HCl 10 mg 09/14/20 10:51 09/22/20 11:21 Labetalol Hcl 100 Mg/20 Ml Vial SLOW IVP 10 mg Q10MIN PRN Administration SBP Greater Than 180 Labetalol HCl 200 mg 09/20/20 09:00 09/22/20 08:01 Labetalol 100 Mg Tab PO 200 mg BID JUNITO Administration Lisinopril 20 mg 09/19/20 21:00 09/22/20 08:02 Lisinopril 20 Mg Tab PO 20 mg BID JUNITO Administration Morphine Sulfate 2 mg 09/13/20 23:43 09/14/20 11:11 Morphine 2 Mg/Ml Vial SLOW IVP 2 mg Q1H PRN Administration Severe Pain (7-10) Nimodipine 60 mg 09/14/20 13:00 09/22/20 12:03 Nimodipine 30 Mg Cap PO 60 mg Q4HR JUNITO Administration Ondansetron HCl 4 mg 09/13/20 23:43 09/14/20 07:45 Ondansetron Pf 4 Mg/2 Ml Vial IVP 4 mg Q6H PRN Administration Nausea/Vomiting Sodium Chloride 10 ml 09/14/20 21:00 09/22/20 08:02 Flush - Normal Saline 10 Ml Syringe IVF 10 ml Q12HR JUNITO Administration - Exam General Appearance: NAD, awake alert Eye: PERRL, anicteric sclera ENT: normocephalic atraumatic, no oropharyngeal lesions Neck: supple, symmetric, no JVD Heart: RRR, no murmur, no gallops, no rubs Respiratory: CTAB, no wheezes, no rales, no ronchi Gastrointestinal: soft, non-tender, non-distended, normal bowel sounds Extremities: no cyanosis, no clubbing Skin: normal turgor, no lesions Psychiatric: normal affect, normal behavior Hosp A/P (1) Subarachnoid hemorrhage Code(s): I60.9 - NONTRAUMATIC SUBARACHNOID HEMORRHAGE, UNSPECIFIED Status: Acute (2) Obesity Code(s): E66.9 - OBESITY, UNSPECIFIED Status: Chronic Qualifiers: Obesity classification: adult class 3 (BMI >= 40) Body mass index: BMI 45.0-49.9 (3) NATACHA (obstructive sleep apnea) Code(s): G47.33 - OBSTRUCTIVE SLEEP APNEA (ADULT) (PEDIATRIC) Status: Suspected (4) Obesity hypoventilation syndrome Code(s): E66.2 - MORBID (SEVERE) OBESITY WITH ALVEOLAR HYPOVENTILATION Status: Suspected (5) Hypertensive emergency Code(s): I16.1 - HYPERTENSIVE EMERGENCY Status: Resolved - Plan old records reviewed/req Continue IV fluid to prevent vasospasm Continue labetalol and lisinopril, Aldactone, nimodipine Monitor today in ICU Neurosurgery following We will closely monitor.
[2020-09-22] MEDS: hydrALAZINE 20 MG/ML VIAL SLOW IVP PRN ×2 (14:15→22:56)
[2020-09-23] MEDS: hydrALAZINE 20 MG/ML VIAL SLOW IVP PRN (00:36)
[2020-09-23] MEDS: niMODipine 30 MG CAP PO SCH ×6 (01:50→22:06)
[2020-09-23] MEDS: Sodium Chloride 0.9% 1,000 ML IV SCH ×2 (04:11→10:44)
[2020-09-23] MEDS: Labetalol HCl 100 MG/20 ML VIAL SLOW IVP PRN ×4 (04:11→15:04)
--- NOTE | 2020-09-23 07:34 | PRG ---
DATE OF SERVICE: 09/23/2020 SUBJECTIVE: She remains in the CCU for treatment of vasospasm associated with subarachnoid hemorrhage. She seems to be doing very well this morning and has no complaints. OBJECTIVE: GENERAL: She is alert and oriented on exam. VITAL SIGNS: Temperature 99.0, pulse 77, blood pressure 119/49, and O2 saturation 100%. HEENT: Unremarkable. NECK: No adenopathy or JVD. LUNGS: Clear. CARDIAC: S1 and S2. Regular. ABDOMEN: Soft. EXTREMITIES: No edema. LABORATORY DATA: No labs were obtained today. ASSESSMENT: 1. Status post subarachnoid hemorrhage. 2. Vasospasm which appears to have dissipated. PLAN: To transfer to the floor at time from my standpoint. Her hypertension and vasospasm symptoms seem to be well controlled on current medication regimen. Job ID: [id number]
[2020-09-23] MEDS: Labetalol 100 MG TAB PO SCH ×2 (08:07→22:05)
[2020-09-23] MEDS: Lisinopril 20 MG TAB PO SCH (08:07)
[2020-09-23 08:16] LABS: Hemoglobin 11.4 g/dL (12.0-16.0); Mean Corpuscular HGB CONC 30.7 g/dL (32.0-36.0); Mean Corpuscular Hemoglobin 22.2 pg (27.0-31.0); Mean Corpuscular Volume 72.5 fL (78.0-98.0); Mean Platelet Volume 10.9 fL (7.4-10.4); Platelet Count 200 thou/uL (130-400); Red Blood Cell (RBC) Count 5.13 mill/uL (4.20-5.40); White Blood Cell (WBC) Count 12.8 thou/uL (4.8-10.8)
[2020-09-23 08:17] LABS: Band 1 % (5-11); Eosinophils 1 % (0-10); Hypochromia SLIGHT = 6-15 cells (100X) (0-5/hpf); Large Platelets SLIGHT; Lymphocytes 13 % (21-51); MDiff Complete? YES; Microcytosis SLIGHT = 6-15 cells (100X) (0-5/hpf); Monocytes 5 % (0-10); Neutrophil 80 % (42-75); Platelet Morphology Comment Appears Adequate
--- NOTE | 2020-09-23 10:52 | PDOC.HOSPP ---
- Subjective Encounter Date: 09/23/20 Encounter Time: 07:15 Subjective: Patient seen and examined. No new complaints. No overnight events - Objective Vital Signs & Weight: Vital Signs (12 hours) Temp Pulse BP Pulse Ox 09/23/20 08:07 77 186/91 H 09/23/20 08:00 99.0 F 09/23/20 07:03 100 09/23/20 04:11 77 186/91 H 09/23/20 00:36 75 181/66 H 09/23/20 00:00 99.0 F 09/22/20 22:56 70 185/76 H Weight Weight 242 lb 1.081 oz Most Recent Monitor Data Heart Rate from ECG 70 NIBP 168/85 NIBP BP-Mean 112 Respiration from ECG 27 SpO2 100 I&O: 09/22/20 09/23/20 09/24/20 06:59 06:59 06:59 Intake Total 3852 3057 Output Total 6685 3607 251 [facility] -[phone] -550 -251 Result Diagrams: 09/23/20 07:35 09/22/20 07:58 Radiology Reviewed by me: Yes EKG Reviewed by me: Yes Hospitalist ROS - Review of Systems ENT: denies: ear pain, ear discharge, nose pain, nose discharge, nose con gestion, mouth pain, mouth swelling, throat pain, throat swelling, other Respiratory: denies: cough, dry, shortness of breath, hemoptysis, SOB with excertion, pleuritic pain, sputum, wheezing, other Cardiovascular: denies: chest pain, palpitations, orthopnea, paroxysmal noc. dyspnea, edema, light headedness, other Gastrointestinal: denies: nausea, vomiting, abdominal pain, diarrhea, constipation, melena, hematochezia, other Genitourinary: denies: dysuria, frequency, incontinence, hematuria, retention, other Musculoskeletal: denies: neck pain, shoulder pain, arm pain, back pain, hand pain, leg pain, foot pain, other - Medication Medications: Active Medications Generic Name Dose Route Start Last Admin Trade Name Freq PRN Reason Stop Dose Admin Acetaminophen 650 mg 09/13/20 23:43 09/22/20 06:30 Acetaminophen 325 Mg Tab PO 650 mg Q4H PRN Administration Headache/Fever/Mild Pain (1-3) Hydralazine HCl 10 mg 09/14/20 10:49 09/23/20 00:36 Hydralazine 20 Mg/Ml Vial SLOW IVP 10 mg Q30MIN PRN Administration SBP Greater Than 180 Sodium Chloride 1,000 mls @ 125 mls/hr 09/16/20 11:15 09/23/20 10:44 Normal Saline 0.9% IV 1,000 mls .Q8H JUNITO Administration Labetalol HCl 10 mg 09/14/20 10:51 09/23/20 04:11 Labetalol Hcl 100 Mg/20 Ml Vial SLOW IVP 10 mg Q10MIN PRN Administration SBP Greater Than 180 Labetalol HCl 200 mg 09/20/20 09:00 09/23/20 08:07 Labetalol 100 Mg Tab PO 200 mg BID JUNITO Administration Lisinopril 20 mg 09/19/20 21:00 09/23/20 08:07 Lisinopril 20 Mg Tab PO 20 mg BID JUNITO Administration Nimodipine 60 mg 09/14/20 13:00 09/23/20 08:07 Nimodipine 30 Mg Cap PO 60 mg Q4HR JUNITO Administration Ondansetron HCl 4 mg 09/13/20 23:43 09/14/20 07:45 Ondansetron Pf 4 Mg/2 Ml Vial IVP 4 mg Q6H PRN Administration Nausea/Vomiting Sodium Chloride 10 ml 09/14/20 21:00 09/23/20 08:08 Flush - Normal Saline 10 Ml Syringe IVF 10 ml Q12HR JUNITO Administration - Exam General Appearance: NAD, awake alert Eye: PERRL, anicteric sclera ENT: normocephalic atraumatic, no oropharyngeal lesions Neck: symmetric, no JVD Heart: RRR, no murmur, no gallops, no rubs Respiratory: no wheezes, no rales, no ronchi Gastrointestinal: soft, non-tender, non-distended, normal bowel sounds Gastrointestinal - other findings: Obesity noted Extremities: no clubbing, no edema Skin: normal turgor, no lesions Neurological: no new deficit Musculoskeletal: normal tone, normal strength Psychiatric: normal affect, normal behavior Hosp A/P (1) Subarachnoid hemorrhage Code(s): I60.9 - NONTRAUMATIC SUBARACHNOID HEMORRHAGE, UNSPECIFIED Status: Acute (2) Obesity Code(s): E66.9 - OBESITY, UNSPECIFIED Status: Chronic Qualifiers: Obesity classification: adult class 3 (BMI >= 40) Body mass index: BMI 45.0-49.9 (3) NATACHA (obstructive sleep apnea) Code(s): G47.33 - OBSTRUCTIVE SLEEP APNEA (ADULT) (PEDIATRIC) Status: Suspected (4) Obesity hypoventilation syndrome Code(s): E66.2 - MORBID (SEVERE) OBESITY WITH ALVEOLAR HYPOVENTILATION Status: Suspected (5) Hypertensive emergency Code(s): I16.1 - HYPERTENSIVE EMERGENCY Status: Resolved - Plan old records reviewed/req, PT/OT Medication reviewed and continue provide symptomatic and supportive care, Blood pressure is controlled, Today CT angiography head and neck to rule out any vasospasm Whenever neurosurgery okay at that time we will transfer her to stroke floor Consider Leon catheter removal Start PT OT as tolerated Discharge planning afterward
[2020-09-23 11:14] LABS: Calcium 9.7 mg/dL (7.8-10.44); Chloride 101 mmol/L (98-107); Sodium 134 mmol/L (136-145)
[2020-09-23 11:15] LABS: Glucose 95 mg/dL (70-105)
[2020-09-23 11:16] LABS: Anion Gap 16 mmol/L (10-20); Carbon Dioxide 21 mmol/L (22-29)
[2020-09-23 11:18] LABS: Calc. Creatinine Clearance 157 mL/min (70-130); Estimated GFR-MDRD Greater than 90
[2020-09-23 11:19] LABS: BUN (Urea Nitrogen) 9 mg/dL (9.8-20.1)
--- NOTE | 2020-09-23 11:20 | CT ---
CTA HEAD WITH AND WITHOUT CONTRAST: Date; 09/23/2020 INDICATION: Follow-up subarachnoid hemorrhage. Comparison made to CTA head 09/14/[address] head 09/13/2020. FINDINGS: CT HEAD WITHOUT CONTRAST: Subarachnoid hemorrhage noted at the base of the brain on the prior study has resolved. There may be some residual subarachnoid blood within the foci bilaterally. No mass or midline shift. Mild chronic ischemic white matter change is stable. IMPRESSION: Significant resolution of the subarachnoid hemorrhage. There probably remains some subarachnoid blood within the parasylvian regions bilaterally. CTA HEAD: Axial tomograms obtained with multiplanar reconstruction and 3D postprocessing. FINDINGS: The intracranial internal carotid arteries are patent. There is evidence of a tiny 2.0 mm aneurysm which arises from the supraclinoid left ICA. No other evidence of aneurysm. The anterior cerebral arteries, middle cerebral arteries, basilar dara ry, and posterior cerebral arteries are patent and symmetric and unchanged. IMPRESSION: 1. 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 2. 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 POS: [facility]
[2020-09-23] MEDS ORDERED: hydrALAZINE 25 MG TAB PO SCH ×2 (11:30→21:00)
[2020-09-23] MEDS ORDERED: Iopamidol-370 76% 500 ML 1 ML ONE (12:13)
[2020-09-23] MEDS ORDERED: NIFEdipine XL 60 MG TAB PO SCH ×2 (16:30→18:00)
[2020-09-23] MEDS ORDERED: Lisinopril/Hydrochlorothiazide 20/25 mg Tablet PO SCH (18:00)
--- NOTE | 2020-09-23 20:21 | PRG ---
DATE OF SERVICE: 09/23/2020 The patient is 10 days into her hospital stay for atraumatic angiography- negative subarachnoid hemorrhage. She remains in the critical care unit for close monitoring as she is exiting the vasospasm window. This morning, she was resting comfortably in bed, sleeping upon my entering the room. She awakens easily to verbal stimulus. She denies headache, pain, dizziness, nausea, vomiting, shortness of breath, or any other complaints She responded to questions appropriately. Her pupils are equal, round, and reactive to light bilaterally. She has 5/5 strength throughout her bilateral upper and lower extremity myotomes. Overall, her neurologic exam and clinical condition remain reassuring. A repeat CTA of the head was completed today. This was reviewed by Dr. Zavala and was deemed negative for aneurysm or other acute intracranial vascular abnormalities. The patient has been deemed stable to transfer to the Stroke Unit. Her neurologic checks can be adjusted to every 2 hours. We have consulted Nephrology for assistance with hypertension management and appreciate their recommendations. Systolic blood pressure goal will be less than 180. Our team will continue to monitor the patient closely. Please call for any neurologic changes or other concerns. This was a 15-minute subsequent visit note in which greater than 50% of the time was spent in review of records, review of imaging, evaluation, examination, and formulation of a plan. The remaining time was spent in counseling and coordination of care. Job ID: [id number] MTDD
--- NOTE | 2020-09-23 23:07 | CON ---
DATE OF CONSULTATION: CONSULTING PHYSICIAN: Ronan Lopez MD REQUESTING PHYSICIAN: Hospitalist Physician. REASON FOR CONSULTATION: Uncontrolled hypertension. IMPRESSION: 1. Hypertensive urgency/multidrug-resistant hypertension. 2. 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 PLAN: 1. Given the questionable compliance in this patient, we will prefer to place this patient on streamline antihypertensive medications and slowly decrease the patient's blood pressure. Avoid precipitous drop in the patient's blood pressure. 2. Counseling on the need for compliance medications. 3. Further management to be dependent on the clinical course. HISTORY OF PRESENT ILLNESS: History is that of a 59-year-old female patient with uncontrolled hypertension, presented here with features suggestive of aneurysmal bleed with subarachnoid hemorrhage with severe headache. The patient has been on multiple antihypertensive medications without adequate control in this blood pressure, thus the need for renal consultation to help with the management of the blood pressure. PAST MEDICAL HISTORY: Significant for hypertension, poorly controlled. MEDICATION: Medication reviewed as documented on [employer]. SOCIAL HISTORY: No alcohol. No tobacco. No illicit drug use. FAMILY HISTORY: No family history of kidney disease. REVIEW OF SYSTEMS: As documented in the body of the history. All other systems were reviewed and found not to be significantly related to present illness. PHYSICAL EXAMINATION: GENERAL: The patient was found not to be in any obvious distress, noted with the following vital signs. VITAL SIGNS: Afebrile, blood pressure 189/94, and pulse of 77. HEENT: Unremarkable. CARDIOVASCULAR SYSTEM: First and second heart sounds were heard. RESPIRATORY SYSTEM: Clear to auscultation. DIGESTIVE SYSTEM: Revealed a benign abdomen with positive bowel sounds. EXTREMITIES: No peripheral edema. SKIN: No new gross rash. LYMPHATICS: No peripheral lymphadenopathy. SUMMARY: A 59-year-old female patient, who presented here with hypertensive emergency as well as subarachnoid aneurysm/bleed. Thank you for this consultation. We will follow with you. Job ID: [id number]
--- NOTE | 2020-09-24 00:18 | PDOC.EVN ---
Event Note - Event Note Event Note: Nursing called, unwitnessed fall. No signs of any injury. Patient is baseline A&O x 2-3. MAEW, no focal deficits, VSS. Will repeat CT brain per hospital protocol.
[2020-09-24] MEDS: niMODipine 30 MG CAP PO SCH ×6 (02:16→20:59)
[2020-09-24 04:26] LABS: Anion Gap 17 mmol/L (10-20); BUN (Urea Nitrogen) 10 mg/dL (9.8-20.1); Calc. Creatinine Clearance 157 mL/min (70-130); Calcium 9.9 mg/dL (7.8-10.44); Carbon Dioxide 22 mmol/L (22-29); Chloride 99 mmol/L (98-107); Estimated GFR-MDRD Greater than 90; Glucose 100 mg/dL (70-105); Potassium 3.3 mmol/L (3.5-5.1); Sodium 135 mmol/L (136-145)
[2020-09-24 05:29] LABS: #Basophils 0.1 thou/uL (0.0-0.2); #Eosinphils 0.3 thou/uL (0.0-0.7); #Lymphocytes 1.6 thou/uL (1.20-3.40); #Monocytes 0.8 thou/uL (0.11-0.59); #Neutrophils 8.9 thou/uL (1.40-6.50); %Basophils 0.5 % (0.0-1.0); %Eosinophils 2.2 % (0.0-10.0); %Lymphocytes 13.6 % (21.0-51.0); %Monocytes 6.9 % (0.0-10.0); %Neutrophils 76.8 % (42.0-75.0); Hemoglobin 10.8 g/dL (12.0-16.0); Mean Corpuscular HGB CONC 30.5 g/dL (32.0-36.0); Mean Corpuscular Hemoglobin 22.3 pg (27.0-31.0); Mean Corpuscular Volume 73.3 fL (78.0-98.0); Mean Platelet Volume 10.7 fL (7.4-10.4); Platelet Count 259 thou/uL (130-400); RBC Distribution Width 12.8 % (11.5-14.5); RBC Morphology Normal; Red Blood Cell (RBC) Count 4.85 mill/uL (4.20-5.40); White Blood Cell (WBC) Count 11.6 thou/uL (4.8-10.8)
--- NOTE | 2020-09-24 08:09 | PRG ---
DATE OF SERVICE: Ms. Bello is bleed day #11. CT angiogram yesterday was not definitive for aneurysm. The small area noted by radiologist appears to me to be calcification. She has mild enlargement of her ventricular system with transependymal flow, but she is asymptomatic this morning, she is neurologically intact, states that she feels fine. Regarding her blood pressure, she has had improvement with ranges in the 136 to 180 systolic range and 70 to 80 range over the last few days. From a fluid standpoint, she is fluid negative over the last 3 days. The patient had an unwitnessed fall in the middle of the night, and a head CT was performed, this represents no change. Again, her fluid balance is negative 4 L over the last 3 days. Prior to that, she was positive. She is coming out of the vasospasm window, but we still need to be careful about salt wasting and dehydration. Job ID: [id number]
--- NOTE | 2020-09-24 08:25 | CT ---
PRELIMINARY REPORT/[facility]/EMERGENCY AFTER HOURS PROCEDURE: EXAM: CT Head Without Intravenous Contrast. CLINICAL HISTORY: UNWITNESSED FALL TECHNIQUE: Axial computed tomography images of the head/brain without intravenous contrast. COMPARISON: 09/23/2020 FINDINGS: BRAIN: No acute intraparenchymal hemorrhage. No mass lesion. No CT evidence for acute territorial infarct. N o midline shift or extra-axial collection. VENTRICLES: No hydrocephalus. ORBITS: The orbits are unremarkable. SINUSES AND MASTOIDS: The paranasal sinuses and mastoid air cells are clear. SOFT TISSUES: No significant facial or scalp soft tissue swelling evident. No radiopaque foreign body is seen. BONES: No acute skull fracture. IMPRESSION: No acute intracranial abnormality. ELECTRONICALLY SIGNED BY: Valerie Galan DO Sep 24, 2020 1:01:53 AM [facility] This report is intended for review by the ordering physician only, in accordance of law. If you recei ve this report in error, please call [facility] at [phone]. FINAL REPORT EMERGENT AFTER HOURS CT OF THE BRAIN WITHOUT CONTRAST: HISTORY: Fall with head trauma. COMPARISON: 09/13/2020. MRI of brain 09/14/2020. FINDINGS/IMPRESSION: I agree with the findings and impression given in the preliminary report per [facility] physici an. 1. There is no evidence of acute intracranial abnormality. 2. There has been interval resolution of the previously seen intracranial hemorrhage. The lateral v entricles are slightly more prominent than on the prior examination and developing hydrocephalus is a possibility. 3. There is a small meningioma to the left of midline adjacent to the clinoid. POS: [facility]
[2020-09-24] MEDS ORDERED: NIFEdipine XL 60 MG TAB PO SCH (09:00)
[2020-09-24] MEDS: Labetalol 100 MG TAB PO SCH ×2 (09:48→20:59)
[2020-09-24] MEDS: Lisinopril/Hydrochlorothiazide 20/25 mg Tablet PO SCH (09:49)
[2020-09-24] MEDS: NIFEdipine XL 30 MG TAB PO SCH (09:49)
--- NOTE | 2020-09-24 13:46 | PDOC.HOSPP ---
- Subjective Encounter Date: 09/24/20 Encounter Time: 11:00 Subjective: Patient seen and examined bedside today, last night patient had an unwitnessed fall, repeat CT brain this morning was unremarkable, patient's blood pressure is relatively better controlled, - Objective Vital Signs & Weight: Vital Signs (12 hours) Temp Pulse Resp BP Pulse Ox 09/24/20 11:48 99.1 F 73 16 170/74 H 95 09/24/20 10:31 154/73 H 09/24/20 08:02 98.8 F 77 20 188/85 H 96 09/24/20 07:38 95 09/24/20 03:33 99.4 F 74 16 179/73 H 95 Weight Weight 242 lb 1.081 oz Most Recent Monitor Data Heart Rate from ECG 76 NIBP 206/77 NIBP BP-Mean 120 Respiration from ECG 28 SpO2 100 I&O: 09/23/20 09/24/20 09/25/20 06:59 06:59 06:59 Intake Total 3057 60 Output Total 3607 451 Balance -550 -391 Result Diagrams: 09/24/20 03:16 09/24/20 03:16 Radiology Reviewed by me: Yes (CT brain reviewed) EKG Reviewed by me: Yes (Sinus rhythm) Hospitalist ROS - Review of Systems ENT: denies: ear pain, ear discharge, nose pain, nose discharge, nose congestion, mouth pain, mouth swelling, throat pain, throat swelling, other Respiratory: denies: cough, dry, shortness of breath, hemoptysis, SOB with excertion, pleuritic pain, sputum, wheezing, other Cardiovascular: denies: chest pain, palpitations, orthopnea, paroxysmal noc. dyspnea, edema, light headedness, other Gastrointestinal: denies: nausea, vomiting, abdominal pain, diarrhea, cons tipation, melena, hematochezia, other Genitourinary: denies: dysuria, frequency, incontinence, hematuria, retention, other Musculoskeletal: denies: neck pain, shoulder pain, arm pain, back pain, hand pain, leg pain, foot pain, other - Medication Medications: Active Medications Generic Name Dose Route Start Last Admin Trade Name Freq PRN Reason Stop Dose Admin Acetaminophen 650 mg 09/13/20 23:43 09/22/20 06:30 Acetaminophen 325 Mg Tab PO 650 mg Q4H PRN Administration Headache/Fever/Mild Pain (1-3) Lisinopril/HCTZ 1 tab 09/24/20 09:00 09/24/20 09:49 Lisinopril/Hydrochlorothiazide 20/25 Mg Tablet PO 1 tab DAILY JUNITO Administration Hydralazine HCl 10 mg 09/14/20 10:49 09/23/20 00:36 Hydralazine 20 Mg/Ml Vial SLOW IVP 10 mg Q30MIN PRN Administration SBP Greater Than 180 Labetalol HCl 10 mg 09/14/20 10:51 09/23/20 15:04 Labetalol Hcl 100 Mg/20 Ml Vial SLOW IVP 10 mg Q10MIN PRN Administration SBP Greater Than 180 Labetalol HCl 200 mg 09/20/20 09:00 09/24/20 09:48 Labetalol 100 Mg Tab PO 200 mg BID JUNITO Administration Nifedipine 30 mg 09/24/20 09:00 09/24/20 09:49 Nifedipine Xl 30 Mg Tab PO 30 mg DAILY JUNITO Administration Nimodipine 30 mg 09/23/20 18:00 09/24/20 10:30 Nimodipine 30 Mg Cap PO 30 mg Q4H JUNITO Administration Ondansetron HCl 4 mg 09/13/20 23:43 09/14/20 07:45 Ondansetron Pf 4 Mg/2 Ml Vial IVP 4 mg Q6H PRN Administration Nausea/Vomiting Sodium Chloride 10 ml 09/14/20 21:00 09/24/20 09:49 Flush - Normal Saline 10 Ml Syringe IVF 10 ml Q12HR JUNITO Administration - Exam General Appearance: NAD, awake alert Eye: PERRL, anicteric sclera ENT: normocephalic atraumatic, no oropharyngeal lesions Neck: supple, symmetric, no JVD, no thyromegaly Heart: RRR, no murmur, no gallops, no rubs Respiratory: CTAB, no wheezes, no rales, no ronchi Gastrointestinal: soft, non-tender, non-distended, normal bowel sounds Extremities: no clubbing, no edema Extremities - other findings: Obesity noted Skin: normal turgor, no lesions Neurological: no focal deficits Musculoskeletal: normal tone, normal strength Psychiatric: normal affect, normal behavior Hosp A/P (1) Subarachnoid hemorrhage Code(s): I60.9 - NONTRAUMATIC SUBARACHNOID HEMORRHAGE, UNSPECIFIED Status: Acute (2) Obesity Code(s): E66.9 - OBESITY, UNSPECIFIED Status: Chronic Qualifiers: Obesity classification: adult class 3 (BMI >= 40) Body mass index: BMI 45.0-49.9 (3) NATACHA (obstructive sleep apnea) Code(s): G47.33 - OBSTRUCTIVE SLEEP APNEA (ADULT) (PEDIATRIC) Status: Suspected (4) Obesity hypoventilation syndrome Code(s): E66.2 - MORBID (SEVERE) OBESITY WITH ALVEOLAR HYPOVENTILATION Status: Suspected (5) Hypertensive emergency Code(s): I16.1 - HYPERTENSIVE EMERGENCY Status: Resolved - Plan old records reviewed/req, PT/OT, dialysis social worker Medication reviewed and continue provide symptomatic and supportive care, Blood pressure is controlled, currently on nimodipine, Procardia XL, Prinzide, labetalol Start PT OT as tolerated Add ferrous sulfate 325 mg p.o. daily We will discharge when neurosurgeon clears
--- NOTE | 2020-09-24 17:38 | PRG ---
DATE OF SERVICE: 09/24/2020 SUBJECTIVE: The patient is seen and examined, seems to be doing better, noted with the following vital signs. OBJECTIVE: VITAL SIGNS: Afebrile, temperature 99.1, pulse 73, respiratory rate of 16, O2 saturations of 95%, blood pressure 146/66 to 170/74. HEENT: Unremarkable. CARDIOVASCULAR SYSTEM: First and second heart sounds were heard. RESPIRATORY SYSTEM: Clear to auscultation. DIGESTIVE SYSTEM: Revealed a benign abdomen. EXTREMITIES: No peripheral edema. SKIN: No new gross rash. LYMPHATICS: No peripheral lymphadenopathy. LABORATORY INVESTIGATION: Showed a sodium of 135 with a potassium of 3.3. IMPRESSION: 1. Hypertensive emergency with subarachnoid bleed. 2. Hypokalemia. 3. Mild hyponatremia. 4. Obesity. PLAN: 1. We will continue to titrate this patient's antihypertensive medications to optimize the hemodynamics. We will likely go up on the to be able to wean this patient off nimodipine. 2. We will continue to streamline this antihypertensive medication to simple regimen that the patient will be much more compliant with. 3. Close attention to the patient's sodium level, though I do not see any significant evidence of salt-wasting nephropathy yet. 4. Further management to be dependent on the clinical course. We will go ahead and replete the potassium. Job ID: [id number]
[2020-09-25] MEDS: niMODipine 30 MG CAP PO SCH ×4 (02:45→13:51)
[2020-09-25 05:07] LABS: #Eosinphils 0.2 thou/uL (0.0-0.7); #Lymphocytes 1.6 thou/uL (1.20-3.40); #Monocytes 0.9 thou/uL (0.11-0.59); #Neutrophils 7.5 thou/uL (1.40-6.50); %Basophils 0.4 % (0.0-1.0); %Eosinophils 2.1 % (0.0-10.0); %Lymphocytes 15.5 % (21.0-51.0); %Monocytes 8.9 % (0.0-10.0); %Neutrophils 73.2 % (42.0-75.0); Hemoglobin 11.3 g/dL (12.0-16.0); Mean Corpuscular HGB CONC 30.4 g/dL (32.0-36.0); Mean Corpuscular Hemoglobin 22.5 pg (27.0-31.0); Mean Corpuscular Volume 73.9 fL (78.0-98.0); Platelet Count 303 thou/uL (130-400); RBC Distribution Width 12.8 % (11.5-14.5); Red Blood Cell (RBC) Count 5.02 mill/uL (4.20-5.40); White Blood Cell (WBC) Count 10.2 thou/uL (4.8-10.8)
[2020-09-25 05:32] LABS: Anion Gap 15 mmol/L (10-20); BUN (Urea Nitrogen) 12 mg/dL (9.8-20.1); Calc. Creatinine Clearance 154 mL/min (70-130); Carbon Dioxide 28 mmol/L (22-29); Chloride 95 mmol/L (98-107); Estimated GFR-MDRD Greater than 90; Glucose 103 mg/dL (70-105); Potassium 3.2 mmol/L (3.5-5.1); Sodium 135 mmol/L (136-145)
[2020-09-25] MEDS ORDERED: Ferrous Sulfate 325 MG TAB PO SCH (08:00)
[2020-09-25] MEDS: Lisinopril/Hydrochlorothiazide 20/25 mg Tablet PO SCH (10:04)
[2020-09-25] MEDS: Labetalol 100 MG TAB PO SCH (10:04)
[2020-09-25] MEDS: NIFEdipine XL 30 MG TAB PO SCH (10:04)
--- NOTE | 2020-09-25 11:14 | PRG ---
DATE OF SERVICE: 09/25/2020 Ms. Bello is now 12 days into her angiogram negative for aneurysmal pattern subarachnoid hemorrhage. Her hemodynamics are stable. Her blood pressure is under much better control with systolics in the 130 to 150 range and diastolic in the 60 to 90 range. We appreciate our medical colleagues . At this point, the patient is ambulating. I would be fine frankly with discharge. I will arrange for followup in my clinic in 6 weeks from her bleed 4 weeks, which likely be CT angiogram at that time. Job ID: [id number]
[2020-09-25] MEDS ORDERED: Potassium Chloride 20 MEQ TAB PO SCH (13:15)
[2020-09-25 17:08] VITALS: BP 129/62; TEMP 98.6
--- NOTE | 2020-09-25 18:34 | PRG ---
DATE OF SERVICE: 09/25/2020 OBJECTIVE: VITAL SIGNS: The patient noted with the following vital signs. Afebrile, temperature 99.3, pulse 76, respiratory rate of 18, O2 saturations of 96%, and blood pressure 133/60. HEENT: Unremarkable. CARDIOVASCULAR SYSTEM: First and second heart sounds were heard. RESPIRATORY SYSTEM: Clear to auscultation. DIGESTIVE SYSTEM: Revealed a benign abdomen. EXTREMITIES: No peripheral edema. SKIN: No new gross rash. LYMPHATICS: No peripheral lymphadenopathy. IMPRESSION: 1. Multidrug resistant hypertension, much improved. 2. Intracerebral bleed, stable. PLAN: 1. The patient's antihypertensive medication continued to be adjusted to optimize the hemodynamics. 2. Outpatient followup, status post discharge recommended. Job ID: [id number]
--- NOTE | 2020-09-29 01:28 | PQF ---
CLINICAL DOCUMENTATION CLARIFICATION FORM: Dear : Jillian Conroy Date / Time: 09/29/2020 Please exercise your independent, professional judgment in responding to the clarification form. Clinical indicators are provided on the bottom of this form for your review Please check appropriate box(es): [ x ] Encephalopathy: Etiology: [ x ] Hypertensive [ ] Metabolic [ ] Toxic [ ] Unspecified [ ] Other (please specify) [ ] Other diagnosis [ ] Unable to determine In addition, please specify: Present on Admission (POA): [ ] Yes [ ] No [ ] Unable to determine To be completed by CDI/Coding staff for physician review: Present Clinical Indicators - Signs / Symptoms / Labs Results and Location in Medical Record [ x ] She remains encephalopathic, Focuses on maintaining blood pressure control. She is on Cardene drip with several other IV medications in place H and P [ x ] Psychiatric other findings: Encephalopathic H and P [ x ] Acute subarachnoid hemorrhage, possible ruptured aneurysm. Hypertensive crisis. She will be on nicardipine drip with blood pressure parameters of systolic blood pressure less than 140 mmHg H and P [ x ] Hypertensive emergency with subarachnoid bleed. We will continue hemodynamics. Progress note 09/24 by Ronan Lopez Present Risk Factors Results and Location in Medical Record [ x ] Hypertensive emergency, subarachnoid hemorrhage, vasospasm Progress note 09/23 by Jillian Garcia Present Treatments Results and Location in Medical Record [ x ] Brain MRI 09/14 Reports [ x ] Noé CT 09/24 Reports [ x ] IV Cardene Medications [ x ] Hydralazine 25 mg Medications CDS/Engine Room Helper Signature: SJ1 Phone #: Date/Time: 09/29/2020 This is a permanent part of the Medical Record [facility]
[2020-10-01 06:13] LABS: Renin Activity 0.486 ng/mL/hr (0.167-5.380)
== END 2020-09-25 17:00 | disposition home or self-care (01) | DRG 77 ==
LOC: ERS 22:27 → CCU 22:54 → 2NO 09-14 01:30 → CCU 09-14 18:29 → 2NO 09-23 20:53
PROVIDERS: ADMIT Surgery; ATTEND Internal Medicine
PROC: B3141ZZ Fluoroscopy of Left Common Carotid Artery using Low Osmolar Contrast (ICD-10-PCS; principal; 2020-09-16)
PROC: B31F1ZZ Fluoroscopy of Left Vertebral Artery using Low Osmolar Contrast (ICD-10-PCS; 2020-09-16)
PROC: B3161ZZ Fluoroscopy of Right Internal Carotid Artery using Low Osmolar Contrast (ICD-10-PCS; 2020-09-16)
DX: I67.4 Hypertensive encephalopathy (principal); I60.9 Nontraumatic subarachnoid hemorrhage, unspecified; I61.5 Nontraumatic intracerebral hemorrhage, intraventricular; I16.1 Hypertensive emergency; Z68.42 Body mass index [BMI] 45.0-49.9, adult; I67.848 Other cerebrovascular vasospasm and vasoconstriction; E66.2 Morbid (severe) obesity with alveolar hypoventilation; E87.1 Hypo-osmolality and hyponatremia; I10 Essential (primary) hypertension; Z20.828 Contact with and (suspected) exposure to other viral communicable diseases; E86.0 Dehydration; D32.0 Benign neoplasm of cerebral meninges; R40.2412 Glasgow coma scale score 13-15, at arrival to emergency department; E87.5 Hyperkalemia; Z91.040 Latex allergy status
CPT/HCPCS: 36215; 36216; 36218; 36224; 36226; 36415; 70450; 70496; 70553; 80048; 82088; 84244; 85025; 85610; 85730; 93306; 93970; 96365; 96366; 96375; A9579; J0360; J1644; J2001; J2270; J2405; J3010; J3490; J7050; Q9967; U0002

== ENCOUNTER 2020-09-25 23:29 | Inpatient (IN) | payer SELFPAY ==
--- NOTE | 2020-09-25 23:48 | CT ---
Head CT without contrast 09/25/2020: COMPARISON: 09/24/2020 HISTORY: Stroke, unresponsive patient TECHNIQUE: Axial CT imaging at 5 mm intervals from vertex through skull base without contrast FINDINGS: The imaged paranasal sinuses and mastoid air cells are well-aerated. There is no displaced calvarial fracture. The fourth ventricle is dilated, as seen on the most recent prior exam. Bilateral lateral ventricles are slightly dilated as well, with prominence of the temporal horns of bilateral lateral ventricles. There is vague evidence of subarachnoid hemorrhage in the suprasellar region and the left sylvian fissure region, similar when compared to recent prior examination and less conspicuous than on the 09/13/2020 exam. There is suggestion of diffuse cerebral edema, which appears stable when compared to the 09/24/2020 exam. IMPRESSION: No significant interval change when compared to the 09/24/2020 exam. There is prominence of the ventricular system with probable stable diffuse cerebral edema. Residual subarachnoid blood is stable. The patient's known extra-axial lesion at the floor of the left anterior cranial fossa is difficult to visualize on this exam. Results were called to Dr. Dupree at 11:45 PM 09/25/2020
[2020-09-26 00:25] LABS: #Basophils 0.1 thou/uL (0.0-0.2); #Eosinphils 0.2 thou/uL (0.0-0.7); #Lymphocytes 1.5 thou/uL (1.20-3.40); #Monocytes 1.1 thou/uL (0.11-0.59); #Neutrophils 9.6 thou/uL (1.40-6.50); %Basophils 0.6 % (0.0-1.0); %Eosinophils 1.3 % (0.0-10.0); %Lymphocytes 12.3 % (21.0-51.0); %Monocytes 9.1 % (0.0-10.0); %Neutrophils 76.6 % (42.0-75.0); Hemoglobin 12.6 g/dL (12.0-16.0); Mean Corpuscular HGB CONC 29.8 g/dL (32.0-36.0); Mean Corpuscular Hemoglobin 22.4 pg (27.0-31.0); Mean Corpuscular Volume 75.3 fL (78.0-98.0); Mean Platelet Volume 8.7 fL (7.4-10.4); Platelet Count 310 thou/uL (130-400); RBC Distribution Width 12.9 % (11.5-14.5); White Blood Cell (WBC) Count 12.5 thou/uL (4.8-10.8)
[2020-09-26 00:39] LABS: ALT (SGPT) 13 U/L (8-55); AST (SGOT) 16 U/L (5-34); Albumin 4.1 g/dL (3.5-5.0); Alkaline Phosphatase 64 U/L (40-110); Anion Gap 17 mmol/L (10-20); BUN (Urea Nitrogen) 18 mg/dL (9.8-20.1); Bilirubin, Total 0.3 mg/dL (0.2-1.2); Calc. Creatinine Clearance 0 mL/min (70-130); Calcium 10.7 mg/dL (7.8-10.44); Carbon Dioxide 25 mmol/L (22-29); Chloride 97 mmol/L (98-107); Estimated GFR-MDRD 79; Globulin 4.2 g/dL (2.4-3.5); Glucose 131 mg/dL (70-105); Potassium 3.8 mmol/L (3.5-5.1); Protein, Total 8.3 g/dL (6.0-8.3); Sodium 135 mmol/L (136-145)
[2020-09-26] MEDS ORDERED: Sodium Chloride 0.9% 1,000 ML IV SCH (02:15)
[2020-09-26] MEDS ORDERED: Acetaminophen 325 MG TAB PO PRN (04:05)
[2020-09-26] MEDS ORDERED: Ondansetron PF 4 MG/2 ML Vial IVP PRN (04:05)
[2020-09-26] MEDS ORDERED: HYDROcodone/Acetaminophen 5/325 mg Tablet PO PRN (04:05)
[2020-09-26] MEDS ORDERED: Calcium Carbonate 500 MG ChewTAB PO PRN (04:05)
[2020-09-26] MEDS ORDERED: Acetaminophen 650 MG Suppository PR PRN (04:05)
[2020-09-26] MEDS ORDERED: Ondansetron ODT 4 MG TAB PO PRN (04:05)
--- NOTE | 2020-09-26 04:09 | PDOC.HHP ---
Hospitalist HPI - History of Present Illness r sided weakness History of Present Illness: Case of an 59y/o female with pmhx htn and ich secondary to an aneurysm rupture discharge yesterday from this institution who comes to hospital due to right- sided hemiparalysis. apparently patient symptoms started at 6 PM, on same day she was discharge from hospital. Patient had fall yesterday night and had a repeat scan that showed no change, had a fall again today at home where they found her at her home initially unresponsive and when that improved they noted a right-sided weakness. Denies any pain or headache. Family states that she was able to ambulate when she left the hospital. Hospitalist ROS - Review of Systems All other systems reviewed; all pertinent +/- noted in HPI/Subj Hospitalist History - Past Surgical History Past Surgical History: reports: , Other (There are some vague history of a prior spinal tumor removal somewhere in the thoracic region. Carpal tunnel release.) - Social History Alcohol: reports: None Drugs: reports: none Hospitalist Results - Labs Result Diagrams: 09/26/20 00:05 09/26/20 00:05 Lab results: WBC 12.5 thou/uL (4.8-10.8) H 09/26/20 00:05 Hgb 12.6 g/dL (12.0-16.0) 09/26/20 00:05 Hct 42.2 % (36.0-47.0) 09/26/20 00:05 MCV 75.3 fL (78.0-98.0) L 09/26/20 00:05 Plt Count 310 thou/uL (130-400) 09/26/20 00:05 Neutrophils % 76.6 % (42.0-75.0) H 09/26/20 00:05 Sodium 135 mmol/L (136-145) L 09/26/20 00:05 Potassium 3.8 mmol/L (3.5-5.1) 09/26/20 00:05 Chloride 97 mmol/L (98-107) L 09/26/20 00:05 Carbon Dioxide 25 mmol/L (22-29) 09/26/20 00:05 BUN 18 mg/dL (9.8-20.1) 09/26/20 00:05 Creatinine 0.89 mg/dL (0.6-1.1) 09/26/20 00:05 Glucose 131 mg/dL (70-105) H 09/26/20 00:05 Calcium 10.7 mg/dL (7.8-10.44) H 09/26/20 00:05 Total Bilirubin 0.3 mg/dL (0.2-1.2) 09/26/20 00:05 AST 16 U/L (5-34) 09/26/20 00:05 ALT 13 U/L (8-55) 09/26/20 00:05 Alkaline Phosphatase 64 U/L (40-110) 09/26/20 00:05 Serum Total Protein 8.3 g/dL (6.0-8.3) 09/26/20 00:05 Albumin 4.1 g/dL (3.5-5.0) 09/26/20 00:05 Hospitalist H&P A/P - Problem (1) Right sided weakness Code(s): R53.1 - WEAKNESS Status: Acute (2) Subarachnoid hemorrhage Code(s): I60.9 - NONTRAUMATIC SUBARACHNOID HEMORRHAGE, UNSPECIFIED Status: Acute (3) Obesity Code(s): E66.9 - OBESITY, UNSPECIFIED Status: Chronic (4) NATACHA (obstructive sleep apnea) Code(s): G47.33 - OBSTRUCTIVE SLEEP APNEA (ADULT) (PEDIATRIC) Status: Villanueva spected - Plan Plan: 59y/o female with the stated pmhx who presents with r sided weakness, patient discharge yesterday after I[facility] dx r sided weakness - head ct unchaged from last one - likely related to vasospams and edema - neurosurgery consulted - started on nimodipine - npo
[2020-09-26 05:21] VITALS: BMI 36.5
[2020-09-26 06:18] LABS: SARS-CoV-2 NAA Rapid Test Not Detected (NotDetected)
[2020-09-26] MEDS: niMODipine 30 MG CAP PO SCH ×2 (06:49→09:13)
--- NOTE | 2020-09-26 07:54 | CT ---
PRELIMINARY REPORT/[facility]/EMERGENCY AFTER HOURS PROCEDURE: EXAM: CTA Head and Neck with Intravenous Contrast. CLINICAL HISTORY: RT SIDED WEAKNESS//PT PRESENTED TO ED WITH GENERAL WEAKNESS AND OBVIOUS RIGHT SIDED HEMIPARESIS// TECHNIQUE: Axial CTA images of the head and neck performed with intravenous contrast. Two-dimensional MIP and/or three-dimensional MIP and volume rendered reformations were performed. Note: Per PQRS, th e description of internal carotid artery percent stenosis, including 0 percent or normal exam, is bas ed on [place] Symptomatic Carotid Endarterectomy Trial (NASCET) criteria. CONTRAST: With; ISOVUE 370,100mL COMPARISON: None provided. FINDINGS: CTA NECK: COMMON CAROTID ARTERIES No significant stenosis. No dissection or occlusion. INTERNAL CAROTID ARTERIES No stenosis by NASCET criteria. No dissection or occlusion. VERTEBRAL ARTERIES No significant stenosis. No dissection or occlusion. CTA HEAD: ANTERIOR CEREBRAL ARTERIES No significant stenosis. No occlusion. No aneurysm. MIDDLE CEREBRAL ARTERIES No significant stenosis. No occlusion. No aneurysm. POSTERIOR CEREBRAL ARTERIES No significant stenosis. No occlusion. No aneurysm. BASILAR ARTERY No significant stenosis. No occlusion. No aneurysm. OTHER: SOFT TISSUES No acute finding. No masses or lymphadenopathy. BONES No acute osseous abnormality. There is moderate cervical spine spondylosis. IMPRESSION: Unremarkable CTA of the head and neck. ELECTRONICALLY SIGNED BY: Valerie Galan DO Sep 26, 2020 2:58:16 AM RADIO MECHANIC FINAL REPORT EMERGENT AFTER HOURS CTA OF THE HEAD AND CTA OF THE NECK WITH CONTRAST: COMPARISON: 09/23/2020. FINDINGS/IMPRESSION: I agree with the findings and impression given in the preliminary report per [facility] physici an. 1. No evidence of significant CTA abnormality of the neck. Evaluation surrounding both carotid bifu rcations is limited secondary to motion artifact in this region of the exam. 2. No evidence of acute intracranial abnormality. The cervical arteries are diminutive in caliber. 3. There appears to be a chronic stable meningioma along the left aspect of the clinoid. POS: EAA
--- NOTE | 2020-09-26 08:18 | CT ---
EXAM: CT brain without contrast HISTORY: Right-sided hemiparesis COMPARISON: 09/25/2020, 09/24/2020, 09/13/2020, MRI brain 09/14/2020 TECHNIQUE: Multiple contiguous axial images were obtained and a CT of the brain without contrast. FINDINGS: There are scattered hypodensities in the subcortical and periventricular white matter consi stent with small vessel ischemic disease. No new confluent infarction is seen. There is stable prominence of the lateral ventricles. The calvarium and overlying soft tissues are unremarkable. The visualized paranasal sinuses and masto id air cells are well aerated. IMPRESSION: Prominence of the lateral ventricles may be secondary to developing hydrocephalus. No new confluent infarction is appreciated.
[2020-09-26] MEDS: Sodium Chloride 0.9% 1,000 ML IV SCH ×3 (09:29→23:44)
--- NOTE | 2020-09-26 09:52 | CON ---
DATE OF CONSULTATION: 09/26/2020 HISTORY OF PRESENT ILLNESS: The patient is a 59-year-old female with a past medical history of hypertension, who is approximately 13 days out from a diffuse subarachnoid hemorrhage, which was CTA negative. She has been monitored closely in the ICU and then transitioned to the stroke floor, where she was doing quite well. Yesterday, she was discharged to home. However, later that evening, she developed acute onset right-sided hemiparesis as well as had a fall at home. She was brought back to the emergency department for a noncontrast CT head, it was done, which was negative for acute changes. She had a CTA of the brain, which was also performed, which was read as negative by the radiologist, however, over-read by our team, felt that this was suspicious for acute right-sided vasospasm. She was monitored closely in the ICU, where her blood pressure has been well controlled, although probably slightly low for her. She has had significant improvement in her exam since last night and is now moving her right side much more easily. She is oriented to person, place, but not time. PAST MEDICAL HISTORY: Hypertension. PAST SURGICAL HISTORY: Unspecified spinal tumor resection, C-sections, and carpal tunnel surgery. SOCIAL HISTORY: The patient lives at home. She does not smoke, drink, or use any drugs. REVIEW OF SYSTEMS: Per HPI. ALLERGIES: NO KNOWN DRUG ALLERGIES. PHYSICAL EXAMINATION: GENERAL: I visited the patient in the ICU. Currently, her systolic blood pressure is in the 120s. She is a bit drowsy, but awakens easily to my voice. She is able to tell me her name and date of and that she is in the hospital. She does not tell me the year. HEENT: Normocephalic and atraumatic. Eyes, PERRLA. Extraocular movements intact. ENT, pink, intact, moist. NECK: Nontender meningismus or nuchal rigidity. CARDIAC: Regular rate and rhythm. PULMONARY: Symmetric chest expansion. No evidence of dyspnea. MUSCULOSKELETAL: She is moving all four easily, but is just slightly delayed on the right side. She appears to have good strength throughout. NEUROLOGIC: Oriented to person, place, but not time. She is slightly delayed on the right side, but appears to have good strength with prompting. ASSESSMENT AND PLAN: This is a 59-year-old female with recent CTA negative subarachnoid hemorrhage 13 days out. She appears to have acute right-sided vasospasms. This is likely related to dip in her blood pressure. We will target her systolic blood pressure goal 150-180 and I will discontinue her current hypertensive. I will increase her fluids at 150 an hour and anticipate blood pressure improvement. If her blood pressure dips below 120, she may require pressors, but I anticipate it should improve with hyperdynamic treatment. We will also ask for Carolyn and Yan. Job ID: [id number]
--- NOTE | 2020-09-26 10:01 | PRG ---
DATE OF SERVICE: 09/26/2020 The patient is seen and examined. I agree with Dunia Randhawa's evaluation on 09/26/2020. The patient is a 59-year-old woman, well known to us from recent hospitalization for angiographically-negative subarachnoid hemorrhage. She was known to have mild vasospasm, but had been asymptomatic and ultimately was discharged to home yesterday. She was on three oral antihypertensives. Last night, she became right hemiparetic and dysphasic and was brought to the emergency room. Her symptoms did gradually resolve. Currently, she arouses but has fairly limited verbal. She is slightly slower on the right side. The nurse reports that she was alert and oriented prior to being awoken just now. The patient's blood pressure tends to run on a much higher side and since arrival has been between [address] scan is largely unremarkable with mild ventriculomegaly. CT angiography reveals diffuse vasospasm, left greater than right. IMPRESSION AND PLAN: The patient has symptomatic cerebral vasospasm. We will need to focus on letting her blood pressure get back to an elevated ranges. This is what she is used to and we can focus on antihypertensive therapy in a delayed fashion when she has cleared from vasospasm. We will hold amlodipine and all other antihypertensives. Our target systolic blood pressure is between 150 and 180. We will treat blood pressures under 150 with fluids and treat blood pressures under 120 with vasopressors. We will not use antihypertensives unless her blood pressure gets to [address] We will place a Leon catheter and an arterial line to assist with management of fluid balance and blood pressure. Job ID: [id number]
[2020-09-26] MEDS ORDERED: Lidocaine 1% (PF) 30 ML VIAL ONE (10:09)
--- NOTE | 2020-09-26 11:03 | CON ---
DATE OF CONSULTATION: 09/26/2020 HISTORY OF PRESENT ILLNESS: Sharmin Bello is a 59-year-old morbidly obese female, who just recently discharged from the hospital, re-presented last night with some weakness on the right side. She has subarachnoid hemorrhage. It is felt for a period of time she may have vasospasm. The etiology of a subarachnoid hemorrhage is unclear. She is now in the ICU. Neurosurgery saw the patient and they feel she is having vasospasm. They would like to maintain a systolic blood pressure of 120. They have called Anesthesia to insert an A-line. She has already started on nimodipine. The patient is not much communicating verbally, though she does have some right-sided weakness, but is able to move her left side. Recent discharge note is well outlined. Previous extensive medical history is outlined, pertinent for hypertension and chronic renal failure. PAST SURGICAL HISTORY: 1. . 2. Some kind of surgery on the back. HOME MEDICINES: 1. Nifedipine 30. 2. Lisinopril. 3. Labetalol 20. REVIEW OF SYSTEMS: Otherwise, unremarkable. PHYSICAL EXAMINATION: VITAL SIGNS: Temperature is 98, pulse 75, respirations , sats 100%, blood pressure is 90/80. CHEST: No wheezing. No crackles. CARDIAC: Normal S1, S2. No gallops. ABDOMEN: No masses. LABORATORY AND DIAGNOSTIC DATA: White count 12,000. Lytes are normal. CT of brain last night shows prominence of left ventricle may be developing hydrocephalus. Report on the CT neck angio shows no evidence of any acute intracranial abnormality. No evidence of significant neck abnormality. ASSESSMENT: Subarachnoid hemorrhage renal failure, resolved. PLAN: Pulmonary Critical Care is going to follow in the ICU. Disposition as per Neurosurgery. This is a consultation note, 70 minutes, 50% direct patient care. Job ID: [id number]
[2020-09-26] MEDS ORDERED: Iopamidol-370 76% 500 ML 1 ML ONE (11:31)
[2020-09-26] MEDS ORDERED: DOPamine 400 MG/D5W 250 ML 250 ML IVPB SCH (14:00)
--- NOTE | 2020-09-26 14:11 | PDOC.HOSPP ---
- Subjective Encounter Date: 09/26/20 Encounter Time: 12:00 Subjective: awakens easily, not in distress no sob or chest pain - Objective Vital Signs & Weight: Vital Signs (12 hours) Temp Pulse Pulse BP BP Pulse Ox Pulse Ox 09/26/20 11:17 72 74 155/61 H 166/73 H 94 L 09/26/20 08:00 100 09/26/20 06:23 95 09/26/20 06:00 98.5 F Pulse Ox 09/26/20 11:17 95 09/26/20 08:00 09/26/20 06:23 09/26/20 06:00 Weight Weight 226 lb 3.108 oz Most Recent Monitor Data Heart Rate from ECG 70 NIBP 95/54 NIBP BP-Mean 67 Respiration from ECG 23 SpO2 88 I&O: 09/25/20 09/26/20 09/27/20 06:59 06:59 06:59 Intake Total 20 Output Total 250 385 Balance -250 -365 Result Diagrams: 09/26/20 00:05 09/26/20 00:05 Additional Labs: Accuchecks 09/25/20 23:34 POC Glucose 108 H Hospitalist ROS - Medication Medications: Active Medications Generic Name Dose Route Start Last Admin Trade Name Freq PRN Reason Stop Dose Admin Sodium Chloride 1,000 mls @ 150 mls/hr 09/26/20 09:16 09/26/20 09:29 Normal Saline 0.9% IV 09/29/20 02:16 1,000 mls .[id number] JUNITO Administration - Exam General Appearance: ill appearing Eye: PERRL, anicteric sclera ENT: no oropharyngeal lesions, dry oral mucosa Neck: supple, no JVD Heart: RRR, no murmur Respiratory: no wheezes, no rales Gastrointestinal: soft, non-tender, non-distended, normal bowel sounds Extremities: no cyanosis, no edema Neurological: cranial nerve grossly intact, no focal deficits Hosp A/P (1) Cerebral artery vasospasm Code(s): I67.848 - OTHER CEREBROVASCULAR VASOSPASM AND VASOCONSTRICTION Status: Acute (2) Subarachnoid hemorrhage Code(s): I60.9 - NONTRAUMATIC SUBARACHNOID HEMORRHAGE, UNSPECIFIED Status: Acute (3) Right sided weakness Code(s): R53.1 - WEAKNESS Status: Acute (4) HTN (hypertension) Code(s): I10 - ESSENTIAL (PRIMARY) HYPERTENSION Status: Chronic Qualifiers: Hypertension type: essential hypertension Qualified Code(s): I10 - Essential (primary) hypertension (5) Obesity Code(s): E66.9 - OBESITY, UNSPECIFIED Status: Chronic Qualifiers: Obesity classification: adult class 2 (BMI 35 - 39.9) Body mass index: BMI 36.0-36.9 (6) NATACHA (obstructive sleep apnea) Code(s): G47.33 - OBSTRUCTIVE SLEEP APNEA (ADULT) (PEDIATRIC) Status: Suspected (7) Obesity hypoventilation syndrome Code(s): E66.2 - MORBID (SEVERE) OBESITY WITH ALVEOLAR HYPOVENTILATION Status: Suspected - Plan hemostable now right sided weakness is resolving for close monitoring in ICU to maintain sbp >150 to prevent vasospasm has arterial line placed by anesthesia nimodipine, iv fluids may feed her if she clears bedside swallow
[2020-09-26] MEDS ORDERED: Albumin 25% 25 GM/100 ML BOT IVPB SCH (14:15)
[2020-09-26] MEDS ORDERED: hydrALAZINE 20 MG/ML VIAL SLOW IVP PRN (17:43)
[2020-09-26] MEDS ORDERED: FLU VACC QS2020-21(6MOS UP)/PF 60 MCG/0.5 ML SYRINGE IM ONE (21:00)
[2020-09-27] MEDS: Sodium Chloride 0.9% 1,000 ML IV SCH ×4 (04:50→22:59)
[2020-09-27 06:26] LABS: Band 2 % (5-11); Eosinophils 3 % (0-10); Hemoglobin 9.9 g/dL (12.0-16.0); Hypochromia SLIGHT = 6-15 cells (100X) (0-5/hpf); Lymphocytes 24 % (21-51); MDiff Complete? YES; Mean Corpuscular HGB CONC 30.4 g/dL (32.0-36.0); Mean Corpuscular Hemoglobin 22.6 pg (27.0-31.0); Mean Corpuscular Volume 74.3 fL (78.0-98.0); Mean Platelet Volume 8.8 fL (7.4-10.4); Monocytes 12 % (0-10); Neutrophil 59 % (42-75); Platelet Count 304 thou/uL (130-400); Platelet Morphology Comment Appears Adequate; RBC Distribution Width 12.6 % (11.5-14.5); Red Blood Cell (RBC) Count 4.37 mill/uL (4.20-5.40); White Blood Cell (WBC) Count 8.1 thou/uL (4.8-10.8)
[2020-09-27 06:36] LABS: ALT (SGPT) 11 U/L (8-55); AST (SGOT) 14 U/L (5-34); Albumin 3.9 g/dL (3.5-5.0); Alkaline Phosphatase 52 U/L (40-110); Anion Gap 13 mmol/L (10-20); BUN (Urea Nitrogen) 11 mg/dL (9.8-20.1); Bilirubin, Total 0.4 mg/dL (0.2-1.2); Calc. Creatinine Clearance 158 mL/min (70-130); Calcium 9.6 mg/dL (7.8-10.44); Carbon Dioxide 25 mmol/L (22-29); Chloride 103 mmol/L (98-107); Estimated GFR-MDRD Greater than 90; Glucose 101 mg/dL (70-105); Potassium 3.2 mmol/L (3.5-5.1); Protein, Total 6.9 g/dL (6.0-8.3); Sodium 138 mmol/L (136-145)
--- NOTE | 2020-09-27 08:45 | PRG ---
DATE OF SERVICE: 09/27/2020 SUBJECTIVE: I visited the patient in the ICU. Her neurologic exam has improved, and she is more alert today and moving the right side much more easily without delay. An art line was placed, but it has been quite positional; however, correlating this with her systolic blood pressure, she has currently been holding within our recommended range of 150 to 180. She occasionally will drift to the tire in the systolic blood pressure range of 200; however, I have added p.r.n. meds for this. She does not require any pressors. OBJECTIVE: On exam this morning, she awakens easily. She is A and O x3. She is moving all 4's without difficulty and appears nonfocal. PLAN: We will go ahead and decrease her fluids to 100 mL an hour. We will work on advancing her diet, have her work with PT and OT, and out of bed with assistance. I have placed a Rehab screen. Job ID: [id number]
--- NOTE | 2020-09-27 08:52 | PRG ---
DATE OF SERVICE: 09/27/2020 OBJECTIVE: GENERAL: The patient is awake, alert, and in no acute distress. VITAL SINGS: On exam, temperature 98.1, pulse rate 88, and blood pressure 200/77, ranging down to 159/86. HEENT: Unremarkable. NECK: No JVD. CHEST: Clear. CARDIAC: S1 and S2. Regular. ABDOMEN: Soft. EXTREMITIES: No edema. LABORATORY DATA: White blood cell count 8.1, hematocrit 32.4, and platelet count 304. Sodium 138, potassium 3.2, chloride 103, CO2 of 25, BUN 11, creatinine 0.6, glucose 101. ASSESSMENT: Cerebral vasospasm. PLAN: Continue ICU monitoring. She has not really needed any type of vasopressor to keep her blood pressure up. She was on Amlodipine, looks to have been discontinued. She is continuing IV fluids. Job ID: [id number]
--- NOTE | 2020-09-27 09:21 | CON ---
DATE OF CONSULTATION: 09/27/2020 SUBJECTIVE: Mrs. Bello is much more alert and interactive today. Her verbal seems now normal and her motor function also normal. Over the course of yesterday, her blood pressure gradually trended upwards and as it did so that her neurologic function. Currently, she is running anywhere between 160 and 200. IMPRESSION AND PLAN: Symptomatic basal spasm, responsive to elevation of blood pressure. We will continue with IV hydration, but we will decrease the rate to 100 mL/hour. We will continue to hold all antihypertensives for now and only treat systolic blood pressure over 200. Target systolic ranges 150 to 180. We will continue with ICU care for now. Job ID: [id number]
--- NOTE | 2020-09-27 16:06 | PDOC.HOSPP ---
- Subjective Encounter Date: 09/27/20 Encounter Time: 08:45 Subjective: awake and oriented well, responds well is moving all extremities - Objective Vital Signs & Weight: Vital Signs (12 hours) Temp Pulse Pulse Resp BP BP Pulse Ox 09/27/20 15:00 24 H 09/27/20 14:00 20 09/27/20 13:00 23 H 09/27/20 12:00 98.0 F 28 H 09/27/20 11:55 99 172/86 H 09/27/20 11:11 102 H 94 183/83 H 187/87 H 09/27/20 11:00 17 09/27/20 10:00 24 H 09/27/20 09:00 25 H 09/27/20 08:00 98.7 F 25 H 97 09/27/20 07:00 16 Pulse Ox Pulse Ox 09/27/20 15:00 09/27/20 14:00 09/27/20 13:00 09/27/20 12:00 09/27/20 11:55 09/27/20 11:11 96 95 09/27/20 11:00 09/27/20 10:00 09/27/20 09:00 09/27/20 08:00 09/27/20 07:00 Weight Weight 226 lb 3.108 oz Most Recent Monitor Data Heart Rate from ECG 71 NIBP 173/62 NIBP BP-Mean 99 Respiration from ECG 24 SpO2 98 I&O: 09/26/20 09/27/20 09/28/20 06:59 06:59 06:59 Intake Total 1910 540 Output Total 250 1005 900 Balance -250 905 -360 Result Diagrams: 09/27/20 05:50 09/27/20 05:50 Hospitalist ROS - Medication Medications: Active Medications Generic Name Dose Route Start Last Admin Trade Name Freq PRN Reason Stop Dose Admin Sodium Chloride 1,000 mls @ 100 mls/hr 09/27/20 08:23 09/27/20 08:25 Normal Saline 0.9% IV 09/29/20 02:16 1,000 mls .Q10H JUNITO Administration - Exam General Appearance: awake alert Eye: PERRL, anicteric sclera ENT: no oropharyngeal lesions, dry oral mucosa Neck: supple, no JVD Heart: RRR, no murmur Respiratory: no wheezes, no rales Gastrointestinal: soft, non-tender, non-distended, normal bowel sounds Extremities: no cyanosis, no edema Neurological: cranial nerve grossly intact, no focal deficits Psychiatric: A&O x 3 Hosp A/P (1) Cerebral artery vasospasm Code(s): I67.848 - OTHER CEREBROVASCULAR VASOSPASM AND VASOCONSTRICTION Status: Acute (2) Subarachnoid hemorrhage Code(s): I60.9 - NONTRAUMATIC SUBARACHNOID HEMORRHAGE, UNSPECIFIED Status: Acute (3) Right sided weakness Code(s): R53.1 - WEAKNESS Status: Acute (4) HTN (hypertension) Code(s): I10 - ESSENTIAL (PRIMARY) HYPERTENSION Status: Chronic Qualifiers: Hypertension type: essential hypertension Qualified Code(s): I10 - Essential (primary) hypertension (5) Obesity Code(s): E66.9 - OBESITY, UNSPECIFIED Status: Chronic Qualifiers: Obesity classification: adult class 2 (BMI 35 - 39.9) Body mass index: BMI 36.0-36.9 (6) NATACHA (obstructive sleep apnea) Code(s): G47.33 - OBSTRUCTIVE SLEEP APNEA (ADULT) (PEDIATRIC) Status: Suspected (7) Obesity hypoventilation syndrome Code(s): E66.2 - MORBID (SEVERE) OBESITY WITH ALVEOLAR HYPOVENTILATION Status: Suspected - Plan hemostable right sided weakness has resolved for close monitoring in ICU to maintain sbp >150 to prevent vasospasm nimodipine, iv fluids encourage oral diet, oob to chair and mobilize with PT
[2020-09-28 03:48] LABS: #Eosinphils 0.3 thou/uL (0.0-0.7); #Lymphocytes 1.6 thou/uL (1.20-3.40); #Monocytes 0.7 thou/uL (0.11-0.59); %Basophils 0.6 % (0.0-1.0); %Eosinophils 5.1 % (0.0-10.0); %Lymphocytes 24.1 % (21.0-51.0); %Monocytes 10.9 % (0.0-10.0); %Neutrophils 59.3 % (42.0-75.0); Hemoglobin 9.8 g/dL (12.0-16.0); Mean Corpuscular HGB CONC 30.3 g/dL (32.0-36.0); Mean Corpuscular Hemoglobin 22.6 pg (27.0-31.0); Mean Corpuscular Volume 74.6 fL (78.0-98.0); Mean Platelet Volume 8.5 fL (7.4-10.4); Platelet Count 308 thou/uL (130-400); RBC Distribution Width 12.5 % (11.5-14.5); Red Blood Cell (RBC) Count 4.32 mill/uL (4.20-5.40); White Blood Cell (WBC) Count 6.8 thou/uL (4.8-10.8)
[2020-09-28] MEDS: hydrALAZINE 20 MG/ML VIAL SLOW IVP PRN ×2 (03:56→09:25)
[2020-09-28 04:11] LABS: Anion Gap 14 mmol/L (10-20); BUN (Urea Nitrogen) 8 mg/dL (9.8-20.1); Calc. Creatinine Clearance 158 mL/min (70-130); Calcium 9.5 mg/dL (7.8-10.44); Carbon Dioxide 25 mmol/L (22-29); Chloride 105 mmol/L (98-107); Estimated GFR-MDRD Greater than 90; Glucose 96 mg/dL (70-105); Potassium 3.5 mmol/L (3.5-5.1); Sodium 140 mmol/L (136-145)
[2020-09-28] MEDS: Labetalol HCl 100 MG/20 ML VIAL SLOW IVP PRN (08:37)
[2020-09-28] MEDS ORDERED: Lisinopril 20 MG TAB PO SCH (10:15)
[2020-09-28] MEDS ORDERED: Metoprolol Tartrate 25 MG TAB PO SCH (10:15)
--- NOTE | 2020-09-28 11:11 | PDOC.HOSPP ---
- Subjective Encounter Date: 09/28/20 Encounter Time: 09:45 Subjective: awake, no complaints, feels better daughter at bedside is eating minimally - Objective Vital Signs & Weight: Vital Signs (12 hours) Temp Pulse BP Pulse Ox 09/28/20 09:25 83 208/131 H 09/28/20 08:37 83 198/102 H 09/28/20 07:30 98 09/28/20 04:00 98.5 F 09/28/20 03:56 80 09/28/20 00:00 98.7 F 96 Weight Weight 226 lb 3.108 oz Most Recent Monitor Data Heart Rate from ECG 96 NIBP 148/74 NIBP BP-Mean 98 Respiration from ECG 20 SpO2 100 I&O: 09/27/20 09/28/20 09/29/20 06:59 06:59 06:59 Intake Total 1910 2740 Output Total 1005 2670 550 Balance 905 70 -550 Result Diagrams: 09/28/20 03:22 09/28/20 03:22 Hospitalist ROS - Medication Medications: Active Medications Generic Name Dose Route Start Last Admin Trade Name Freq PRN Reason Stop Dose Admin Hydralazine HCl 10 mg 09/28/20 03:45 09/28/20 09:25 Hydralazine 20 Mg/Ml Vial SLOW IVP 10 mg Q4H PRN Administration SBP > 200 Sodium Chloride 1,000 mls @ 100 mls/hr 09/27/20 08:23 09/27/20 22:59 Normal Saline 0.9% IV 09/29/20 02:16 1,000 mls .Q10H JUNITO Administration Labetalol HCl 5 mg 09/26/20 17:43 09/28/20 08:37 Labetalol Hcl 100 Mg/20 Ml Vial SLOW IVP 5 mg Q4H PRN Administration SBP >200 Sodium Chloride 10 ml 09/27/20 09:00 09/28/20 09:25 Flush - Normal Saline 10 Ml Syringe IVF 10 ml Q12HR JUNITO Administration - Exam General Appearance: awake alert Eye: PERRL, anicteric sclera ENT: no oropharyngeal lesions, moist mucosa Neck: supple, no JVD Heart: RRR, no murmur Respiratory: no wheezes, no rales Gastrointestinal: soft, non-tender, non-distended, normal bowel sounds Extremities: no cyanosis, no edema Neurological: cranial nerve grossly intact, no focal deficits Psychiatric: normal affect, A&O x 3 Hosp A/P (1) Cerebral artery vasospasm Code(s): I67.848 - OTHER CEREBROVASCULAR VASOSPASM AND VASOCONSTRICTION Status: Acute (2) Subarachnoid hemorrhage Code(s): I60.9 - NONTRAUMATIC SUBARACHNOID HEMORRHAGE, UNSPECIFIED Status: Acute (3) Right sided weakness Code(s): R53.1 - WEAKNESS Status: Resolved (4) HTN (hypertension) Code(s): I10 - ESSENTIAL (PRIMARY) HYPERTENSION Status: Chronic Qualifiers: Hypertension type: essential hypertension Qualified Code(s): I10 - Essential (primary) hypertension (5) Obesity Code(s): E66.9 - OBESITY, UNSPECIFIED Status: Chronic Qualifiers: Obesity classification: adult class 2 (BMI 35 - 39.9) Body mass index: BMI 36.0-36.9 (6) NATACHA (obstructive sleep apnea) Code(s): G47.33 - OBSTRUCTIVE SLEEP APNEA (ADULT) (PEDIATRIC) Status: Suspected (7) Obesity hypoventilation syndrome Code(s): E66.2 - MORBID (SEVERE) OBESITY WITH ALVEOLAR HYPOVENTILATION Status: Suspected - Plan hemostable right sided weakness has resolved for close monitoring in ICU to maintain sbp >150 to prevent vasospasm nimodipine, iv fluids, add lisinopril and low dose lopressor (sbp >190 despite prn htn meds) encourage oral diet, oob to chair and mobilize with PT she cannot ambulate much due to arterial line
--- NOTE | 2020-09-28 13:02 | PRG ---
DATE OF SERVICE: 09/28/2020 SUBJECTIVE: The patient has remained stable in the ICU. She is sitting up comfortable and interacting with both the nurse and her daughter this morning. She is having occasional elevation in her blood pressure, but seems more related to a positional cough and art line. OBJECTIVE: Currently, her blood pressure is systolic of 156/86. She is awake, alert, oriented x3. She was moving all 4s without difficulty. Has a nonfocal exam for me. PLAN: We will continue to monitor closely for her risk of vasospasm. We will continue her IV hydration and monitor her blood pressure closely with a systolic heart rate range of 150 to 180. We will treat any pressure over 200. Continue ICU care for now. Job ID: [id number]
[2020-09-28] MEDS: Sodium Chloride 0.9% 1,000 ML IV SCH ×2 (17:28→21:50)
[2020-09-28] MEDS: Lisinopril 10 MG TAB PO SCH (21:51)
[2020-09-28] MEDS: Metoprolol Tartrate 25 MG TAB PO SCH (21:51)
[2020-09-28] MEDS ORDERED: Sodium Chloride 0.9% 1,000 ML IV SCH (23:25)
[2020-09-29 03:42] LABS: Anion Gap 12 mmol/L (10-20); BUN (Urea Nitrogen) 9 mg/dL (9.8-20.1); Calc. Creatinine Clearance 158 mL/min (70-130); Calcium 9.7 mg/dL (7.8-10.44); Carbon Dioxide 25 mmol/L (22-29); Chloride 106 mmol/L (98-107); Estimated GFR-MDRD Greater than 90; Glucose 108 mg/dL (70-105); Potassium 3.3 mmol/L (3.5-5.1); Sodium 140 mmol/L (136-145)
[2020-09-29 03:51] LABS: #Basophils 0.1 thou/uL (0.0-0.2); #Eosinphils 0.3 thou/uL (0.0-0.7); #Lymphocytes 1.6 thou/uL (1.20-3.40); #Monocytes 0.7 thou/uL (0.11-0.59); #Neutrophils 4.3 thou/uL (1.40-6.50); %Basophils 0.8 % (0.0-1.0); %Eosinophils 4.2 % (0.0-10.0); %Lymphocytes 23.5 % (21.0-51.0); %Monocytes 9.5 % (0.0-10.0); Hemoglobin 10.4 g/dL (12.0-16.0); Mean Corpuscular HGB CONC 29.7 g/dL (32.0-36.0); Mean Corpuscular Hemoglobin 22.2 pg (27.0-31.0); Mean Corpuscular Volume 74.7 fL (78.0-98.0); Mean Platelet Volume 8.6 fL (7.4-10.4); Platelet Count 346 thou/uL (130-400); RBC Distribution Width 12.8 % (11.5-14.5); Red Blood Cell (RBC) Count 4.66 mill/uL (4.20-5.40)
[2020-09-29] MEDS: Sodium Chloride 0.9% 1,000 ML IV SCH ×4 (04:58→19:44)
--- NOTE | 2020-09-29 07:42 | CT ---
CT BRAIN: Date: 09/28/2020 PROVIDED CLINICAL HISTORY: Mental status change. FINDINGS: Comparison made with exam dated 09/26/2020. The ventricular system is unchanged in size and morphology. There is no evidence for intracranial hem orrhage. There is no shift of the midline structures. Mild effacement of the basilar cisterns is jhonathan lar to prior. Chamberlain-white differentiation appears grossly preserved. The extracranial soft tissues and osseous structures appear unremarkable. IMPRESSION: No apparent interval change. POS: NANCY
--- NOTE | 2020-09-29 07:50 | CT ---
CTA HEAD WITHOUT AND WITH CONTRAST: Date: 09/29/2020 COMPARISON: 09/26/2020. CT brain 09/28/2020. HISTORY: Concern for vasospasm with worsening right-sided weakness. TECHNIQUE: Multiple contiguous axial images were obtained in a CTA of the head without and with IV contrast. 3D sagittal and coronal MIP reformats were performed. FINDINGS: There are scattered hypodensities in the subcortical and periventricular white matter, likely seconda ry to small vessel ischemic disease. No large confluent infarction is seen. There is no evidence of h ydrocephalus, intracranial hemorrhage, or extra-axial fluid collection. There is a stable mass along the left aspect of the clinoid which likely represents a meningioma. The calvarium and overlying soft tissues are unremarkable. The visualized paranasal sinuses and masto id air cells are well aerated. There is a small amount of nonfocal atherosclerotic disease in the cavernous portion of both internal carotid arteries. The bilateral intracranial internal carotid arteries branch in normal appearing an terior and middle cerebral arteries. There is no evidence of focal stenosis, occlusion, or aneurysmal dilatation of the anterior circulation. Both vertebral arteries form in a normal appearing basilar artery. The posterior cerebral arteries an d cerebellar arteries are patent. There is no evidence of focal stenosis, occlusion, or aneurysmal di latation of the posterior circulation. The intracranial venous sinuses are patent without evidence of thrombus. IMPRESSION: 1. No significant CTA abnormality of the head. 2. Stable meningioma near the clinoid. 3. Small vessel ischemic disease. POS: MAGDA
[2020-09-29] MEDS: Metoprolol Tartrate 25 MG TAB PO SCH ×2 (08:24→21:20)
[2020-09-29] MEDS: Lisinopril 10 MG TAB PO SCH (08:24)
[2020-09-29] MEDS ORDERED: Lisinopril 20 MG TAB PO SCH (09:00)
[2020-09-29] MEDS ORDERED: Iopamidol-370 76% 500 ML 1 ML ONE (09:37)
--- NOTE | 2020-09-29 09:51 | PRG ---
DATE OF SERVICE: 09/29/2020 SUBJECTIVE: Last night, the patient had some increased confusion and worsening right-sided weakness. I evaluated the patient with a noncontrast head CT, which was unremarkable, without any acute change or evidence of infarct. Her blood pressure has been within our desired range of systolic 150-180. I did increase her fluids up to 150 mL last night. I repeated a CTA this morning, which is concerning for ongoing vasospasm on the left. OBJECTIVE: This morning on exam, patient is back to her baseline. She is awake, alert, oriented x3, and she is moving all fours easily. Nonfocal on my exam. We will continue her fluids at the increased rate of 150 mL an hour. We will continue to monitor her progress closely in the ICU. I will get an echo to rule out any embolic event. Her CTA of the neck was negative on 09/26/2020. We will continue to follow her progress closely. Job ID: [id number] MTDD
[2020-09-29] MEDS ORDERED: Metoprolol Tartrate 25 MG TAB PO SCH (10:30)
[2020-09-29] MEDS ORDERED: Lisinopril 10 MG TAB PO SCH (10:30)
[2020-09-29] MEDS: Labetalol HCl 100 MG/20 ML VIAL SLOW IVP PRN (10:34)
--- NOTE | 2020-09-29 13:34 | PRG ---
DATE OF SERVICE: 09/28/2020 SUBJECTIVE: Sharmin Bello has no complaints. She is in no distress. OBJECTIVE: VITAL SIGNS: Blood pressure Regular rhythm. LABORATORY DATA: White count 6.8, hemoglobin 9.8, platelet count 308,000 . IMPRESSION: Cerebrovascular vasospasm. We will continue with ICU monitoring. Job ID: [id number]
--- NOTE | 2020-09-29 13:40 | PDOC.HOSPP ---
- Subjective Encounter Date: 09/29/20 Encounter Time: 12:10 Subjective: Family at bedside. Patient is having her lunch. She is alert oriented. She has some burning sensation in her eyes. He denies any headache. Systolic blood pressure in 210 in the monitor. She is getting IV fluid. Her they want to allow permissive hypertension and maintained blood pressure over [address] angiogram shows no significant CT abnormality. Is stable meningioma near the clinoid process. A small vessel ischemic disease. - Objective Vital Signs & Weight: Vital Signs (12 hours) Temp Pulse BP Pulse Ox 09/29/20 12:20 210/98 H 09/29/20 12:00 98.3 F 09/29/20 10:34 77 210/98 H 09/29/20 08:00 98 F 09/29/20 05:17 99 09/29/20 03:57 100 09/29/20 03:00 98.6 F Weight Weight 226 lb 3.108 oz Most Recent Monitor Data Heart Rate from ECG 74 NIBP 199/70 NIBP BP-Mean 113 Respiration from ECG 26 SpO2 97 I&O: 09/28/20 09/29/20 09/30/20 06:59 06:59 06:59 Intake Total 2740 2761 390 Output Total 2670 1825 590 Balance 70 936 -200 Result Diagrams: 09/29/20 03:05 09/29/20 03:05 Hospitalist ROS - Medication Medications: Active Medications Generic Name Dose Route Start Last Admin Trade Name Freq PRN Reason Stop Dose Admin Hydralazine HCl 10 mg 09/28/20 03:45 09/28/20 09:25 Hydralazine 20 Mg/Ml Vial SLOW IVP 10 mg Q4H PRN Administration SBP > 200 Sodium Chloride 1,000 mls @ 150 mls/hr 09/29/20 03:45 09/29/20 12:18 Normal Saline 0.9% IV 1,000 mls .Q6H40M JUNITO Administration Labetalol HCl 5 mg 09/26/20 17:43 09/29/20 10:34 Labetalol Hcl 100 Mg/20 Ml Vial SLOW IVP 5 mg Q4H PRN Administration SBP >200 Sodium Chloride 10 ml 09/27/20 09:00 09/29/20 11:59 Flush - Normal Saline 10 Ml Syringe IVF Not Given Q12HR JUINTO - Exam General Appearance: NAD, awake alert General - other findings: Mild left facial droopiness noted. Eye: PERRL ENT: normocephalic atraumatic Neck: supple Heart: RRR Respiratory: CTAB, normal chest expansion Gastrointestinal: soft, normal bowel sounds Neurological: no new deficit Psychiatric: A&O x 3 Hosp A/P - Plan (1) Cerebral artery vasospasm Code(s): I67.848 - OTHER CEREBROVASCULAR VASOSPASM AND VASOCONSTRICTION Status: Acute (2) Subarachnoid hemorrhage Code(s): I60.9 - NONTRAUMATIC SUBARACHNOID HEMORRHAGE, UNSPECIFIED Status: Acute (3) Right sided weakness Code(s): R53.1 - WEAKNESS Status: Resolved (4) HTN (hypertension) Code(s): I10 - ESSENTIAL (PRIMARY) HYPERTENSION Status: Chronic Qualifiers: Hypertension type: essential hypertension Qualified Code(s): I10 - Essential (primary) hypertension (5) Obesity Code(s): E66.9 - OBESITY, UNSPECIFIED Status: Chronic Qualifiers: Obesity classification: adult class 2 (BMI 35 - 39.9) Body mass index: BMI 36.0-36.9 (6) NATACHA (obstructive sleep apnea) Code(s): G47.33 - OBSTRUCTIVE SLEEP APNEA (ADULT) (PEDIATRIC) Status: Suspected (7) Obesity hypoventilation syndrome Code(s): E66.2 - MORBID (SEVERE) OBESITY WITH ALVEOLAR HYPOVENTILATION Status: Suspected maintain the blood pressure on the high end will reduce her blood pressure medications lisinopril as well as Lopressor to lower doses. Systolic blood pressure in 210 in the monitor. She is getting IV fluid. [facility] want to allow permissive hypertension and maintained blood pressure over [address] angiogram shows no significant CT abnormality. Is stable meningioma near the clinoid process. A small vessel ischemic disease. Echo showed EF of 65% with diastolic dysfunction. Mild hypokalemia -Being replaced Physical therapy consult placed for postacute screening. Obesity and associated possible obesity hypoventilation syndrome -Patient has not done any sleep study in the past. No CPAP -After the patient as well as the family member at bedside that she would bene fit with outpatient sleep study. -Likely follow-up with Dr. Obrien.
[2020-09-29] MEDS ORDERED: Potassium Chloride 20 MEQ TAB PO SCH (14:00)
--- NOTE | 2020-09-29 14:05 | PRG ---
DATE OF SERVICE: 09/29/2020 SUBJECTIVE: Sharmin Bello apparently had another couple of episodes, leading to 2 CAT scans last night. There is no seizure activity reported with this. OBJECTIVE: LUNGS: Clear. HEART: Regular rhythm. ABDOMEN: Soft. EXTREMITIES: Without edema. LABORATORY DATA: White count 7, hemoglobin 10.4, platelets 346. Electrolytes are unremarkable. IMPRESSION: Vasospasm after a subarachnoid bleed. We will continue supportive care. There is nothing reported that will suggest these episodes were seizure related. We will continue to follow. Job ID: [id number]
--- NOTE | 2020-09-29 14:05 | PRG ---
DATE OF SERVICE: 09/29/2020 SUBJECTIVE: Last night, Mrs. Bello had another transient episode of being slightly obtunded, decreased verbal, and some mild right hemiparesis. CT scan was unremarkable. CT angiogram was repeated this morning and reveals persistent left-sided vasospasm. The right side is improved compared to admission. The patient has now returned to her neurologic baseline, is in the process of an echocardiogram. CT angiography of the neck had been done on the and revealed no evidence of meaningful lesion. IMPRESSION AND PLAN: The patient continues to have symptomatic left hemispheric vasospasm. We will continue with expectant management with hydration and allowing blood pressure to be elevated. She seems to do poorly with antihypertensives or blood pressure control. I think she is best served by leaving her blood pressure in the 180-200 range for now. Job ID: [id number]
[2020-09-30 04:51] LABS: Anion Gap 11 mmol/L (10-20); BUN (Urea Nitrogen) 9 mg/dL (9.8-20.1); Calc. Creatinine Clearance 166 mL/min (70-130); Calcium 9.7 mg/dL (7.8-10.44); Carbon Dioxide 25 mmol/L (22-29); Cardiac Risk 3.5 (Less than 4.5); Chloride 108 mmol/L (98-107); Cholesterol 115 mg/dl (< 200 Desired); Estimated GFR-MDRD Greater than 90; Glucose 93 mg/dL (70-105); HDL Cholesterol 33 mg/dL (>60 Neg Risk); LDL Cholesterol, Calculated 66 mg/dL; Potassium 3.6 mmol/L (3.5-5.1); Sodium 140 mmol/L (136-145); Triglycerides 78 mg/dL (Less than 150)
[2020-09-30] MEDS: Sodium Chloride 0.9% 1,000 ML IV SCH ×3 (07:40→23:55)
[2020-09-30] MEDS: Metoprolol Tartrate 25 MG TAB PO SCH ×2 (09:13→19:50)
[2020-09-30] MEDS: Lisinopril 10 MG TAB PO SCH (09:13)
--- NOTE | 2020-09-30 09:20 | PRG ---
DATE OF SERVICE: 09/30/2020 Ms. Bello is 17 days post admission for angiography negative subarachnoid hemorrhage. She was discharged home last week in good condition, however she returned left-sided vasospasm and right-sided hemiparesis and. CT angiogram completed yesterday demonstrated persistent left-sided vasospasm. This morning, she was sitting in a chair at the bedside and eating grapes. Her only complaint is that her sleep schedule is off and she is very tired. She denies any headache, pain, nausea, vomiting, dizziness, shortness of breath, or any other complaints at this time. She is doing well and at neurologic baseline. Her blood pressure was 197/93. She demonstrated good range of motion and full strength throughout all extremities. Patient is being managed for left hemispheric vasospasm. We will allow her systolic blood pressure to be elevated in the 180-200 range. Currently, she is on lisinopril 5 mg once daily and metoprolol 12.5 mg b.i.d. Continue IVF a 150 mL an hour. She will remain in the critical care unit for close neurologic monitoring. We will obtain a Doppler ultrasound of the bilateral lower extremities today, as one has not been completed since she has been readmitted to the hospital. Please call for any neurologic changes or other concerns. This was a 15-minute subsequent visit in which greater than 50% of the time was spent in review of records, review imaging, evaluation, examination, and formulation of a plan. The remaining time was spent in counseling and coordination of care. Job ID: [id number] [facility]
[2020-09-30] MEDS: Labetalol HCl 100 MG/20 ML VIAL SLOW IVP PRN (10:39)
--- NOTE | 2020-09-30 11:47 | ULT ---
ULTRASOUND DOPPLER DUPLEX VENOUS BILATERAL LOWER EXTREMITIES: DATE: 09/30/2020 HISTORY: 59-year-old female with bilateral lower extremity edema TECHNIQUE: Grayscale, color-flow, and spectral analysis, of major veins of bilateral lower extremities. FINDINGS: There is demonstration of blood flow with normal compressibility, of the bilateral common femoral, pr ofunda femoral, greater saphenous, femoral, popliteal, and posterior tibial, veins. IMPRESSION: Negative. No deep venous thrombosis of bilateral lower extremities.
--- NOTE | 2020-09-30 13:05 | PRG ---
DATE OF SERVICE: 09/30/2020 SUBJECTIVE: Sharmin Bello had a good night last night. She says she wants to go home. OBJECTIVE: VITAL SIGNS: Blood pressure was 190/110 when I saw her this morning. LUNGS: Clear. HEART: Regular rhythm. ABDOMEN: Soft. IMPRESSION AND PLAN: Hypertension with tolerance for this because of her cerebral vasospasm after subarachnoid bleed. Family answered all her questions. She remains clinically stable. Job ID: [id number]
--- NOTE | 2020-09-30 14:33 | PDOC.HOSPP ---
- Subjective Encounter Date: 09/30/20 Encounter Time: 12:10 Subjective: Daughter at bedside. Spent more time talking to them. Patient has no symptoms today. She denies any headache or blurriness this morning. Her blood blood pressure closer to 190 range in the monitor. Patient does not take her home blood pressure medications. The daughter says that they got a blood pressure cuff at home now and plan to follow the instructions from us and PCP. - Objective Vital Signs & Weight: Vital Signs (12 hours) Temp Pulse BP Pulse Ox 09/30/20 13:00 98.4 F 09/30/20 10:39 70 210/98 H 09/30/20 09:13 210/98 H 09/30/20 07:42 97 09/30/20 07:15 100 09/30/20 07:00 98.3 F 09/30/20 04:11 98 09/30/20 04:00 98.4 F Weight Weight 226 lb 3.108 oz Most Recent Monitor Data Heart Rate from ECG 77 NIBP 203/111 NIBP BP-Mean 141 Respiration from ECG 28 SpO2 97 I&O: 09/29/20 09/30/20 10/01/20 06:59 06:59 06:59 Intake Total 2761 3777 50 Output Total 1825 1905 760 Balance 936 1872 -253 Result Diagrams: 09/29/20 03:05 09/30/20 03:50 Hospitalist ROS - Medication Medications: Active Medications Generic Name Dose Route Start Last Admin Trade Name Freq PRN Reason Stop Dose Admin Hydralazine HCl 10 mg 09/28/20 03:45 09/28/20 09:25 Hydralazine 20 Mg/Ml Vial SLOW IVP 10 mg Q4H PRN Administration SBP > 200 Sodium Chloride 1,000 mls @ 125 mls/hr 09/29/20 13:44 09/30/20 07:40 Normal Saline 0.9% IV Not Given .Q8H JUNITO Labetalol HCl 5 mg 09/26/20 17:43 09/30/20 10:39 Labetalol Hcl 100 Mg/20 Ml Vial SLOW IVP 5 mg Q4H PRN Administration SBP >200 Lisinopril 5 mg 09/30/20 09:00 09/30/20 09:13 Lisinopril 10 Mg Tab PO 5 mg DAILY JUNITO Administration Metoprolol Tartrate 12.5 mg 09/29/20 21:00 09/30/20 09:13 Metoprolol Tartrate 25 Mg Tab PO 12.5 mg BID JUNITO Administration Sodium Chloride 10 ml 09/27/20 09:00 09/30/20 09:13 Flush - Normal Saline 10 Ml Syringe IVF 10 ml Q12HR JUNITO Administration - Exam General Appearance: NAD, awake alert Eye: PERRL ENT: normocephalic atraumatic Neck: supple Heart: RRR, normal peripheral pulses Respiratory: CTAB, normal chest expansion Gastrointestinal: soft, normal bowel sounds Neurological: cranial nerve grossly intact, no new deficit Psychiatric: A&O x 3 Hosp A/P - Plan (1) Cerebral artery vasospasm Code(s): I67.848 - OTHER CEREBROVASCULAR VASOSPASM AND VASOCONSTRICTION Status: Acute (2) Subarachnoid hemorrhage Code(s): I60.9 - NONTRAUMATIC SUBARACHNOID HEMORRHAGE, UNSPECIFIED Status: Acute (3) Right sided weakness Code(s): R53.1 - WEAKNESS Status: Resolved (4) HTN (hypertension) Code(s): I10 - ESSENTIAL (PRIMARY) HYPERTENSION Status: Chronic Qualifiers: Hypertension type: essential hypertension Qualified Code(s): I10 - Es sential (primary) hypertension (5) Obesity Code(s): E66.9 - OBESITY, UNSPECIFIED Status: Chronic Qualifiers: Obesity classification: adult class 2 (BMI 35 - 39.9) Body mass index: BMI 36.0-36.9 (6) NATACHA (obstructive sleep apnea) Code(s): G47.33 - OBSTRUCTIVE SLEEP APNEA (ADULT) (PEDIATRIC) Status: Suspect ed (7) Obesity hypoventilation syndrome Code(s): E66.2 - MORBID (SEVERE) OBESITY WITH ALVEOLAR HYPOVENTILATION Status: Suspected maintain the blood pressure on the high end will reduce her blood pressure medications lisinopril as well as Lopressor to lower doses. Systolic blood pressure in 210 in the monitor. She is getting IV fluid. [facility] want to allow permissive hypertension and maintained blood pressure over [address] angiogram shows no significant CT abnormality. Is stable meningioma near the clinoid process. A small vessel ischemic disease. Echo showed EF of 65% with diastolic dysfunction. Mild hypokalemia -Being replaced Physical therapy consult placed for postacute screening. Obesity and associated possible obesity hypoventilation syndrome -Patient has not done any sleep study in the past. No CPAP -After the patient as well as the family member at bedside that she would benefit with outpatient sleep study. -Likely follow-up with Dr. Obrien.
[2020-09-30] MEDS: hydrALAZINE 20 MG/ML VIAL SLOW IVP PRN (23:05)
[2020-10-01] MEDS ORDERED: Sodium Chloride 0.9% 1,000 ML IV SCH (07:28)
[2020-10-01] MEDS: hydrALAZINE 20 MG/ML VIAL SLOW IVP PRN ×2 (08:29→14:28)
[2020-10-01] MEDS: Lisinopril 10 MG TAB PO SCH (08:30)
[2020-10-01] MEDS: Metoprolol Tartrate 25 MG TAB PO SCH (08:34)
--- NOTE | 2020-10-01 10:19 | PRG ---
DATE OF SERVICE: 10/01/2020 Ms. Bello is now 18 days out from her bleed. She was discharged home and subsequently came in with right-sided hemiparesis. Left CTA demonstrated vasospasm in the left hemisphere, this has now resolved, but she did have symptomatic vasospasm after not having symptomatic vasospasm for the 1st 13 days, even though she is out of vasospasm window. 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 While we were successful in bringing her into a normotensive phase. She likely will require blood pressure ranges in the 160 to 180 over 90 to 100 range for the foreseeable future. At this point, I think keeping her blood pressures in the 180 to 200 range systolic over 90 to 100 range is likely the most beneficial for her to perfuse her brain. This morning, she has no complaints. She states she is doing well. Our medical colleagues are following along. We appreciate the diligence in hypertension assistance. At some point for inpatient rehab purposes, it would likely be of benefit to keep her blood pressure again less than 200/110. Job ID: [id number] MTDRobin
[2020-10-01] MEDS: Sodium Chloride 0.9% 1,000 ML IV SCH ×3 (14:28→21:37)
--- NOTE | 2020-10-01 16:01 | PDOC.HOSPP ---
- Subjective Encounter Date: 10/01/20 Encounter Time: 11:40 Subjective: Her pressure was high this morning systolic over 220. Requiring small dose of hydralazine. She had a lot of activities getting out of the bed etc. She has no headache or blurriness this morning. IV fluid running at 150 mL an hour - Objective Vital Signs & Weight: Vital Signs (12 hours) Temp Pulse Pulse Pulse BP BP BP 10/01/20 14:28 194/124 H 10/01/20 14:06 90 87 200/93 H 161/103 H 10/01/20 12:00 98.6 F 10/01/20 08:30 194/124 H 10/01/20 08:29 70 210/98 H 10/01/20 08:00 10/01/20 07:59 10/01/20 04:00 98.9 F Pulse Ox Pulse Ox 10/01/20 14:28 10/01/20 14:06 100 10/01/20 12:00 10/01/20 08:30 10/01/20 08:29 10/01/20 08:00 100 10/01/20 07:59 100 10/01/20 04:00 Weight Weight 226 lb 3.108 oz Most Recent Monitor Data Heart Rate from ECG 102 NIBP 138/76 NIBP BP-Mean 96 Respiration from ECG 22 SpO2 100 I&O: 09/30/20 10/01/20 10/02/20 06:59 06:59 06:59 Intake Total 3777 3070 120 Output Total 1905 4140 696 Balance 1872 -1070 -576 Result Diagrams: 09/29/20 03:05 09/30/20 03:50 Hospitalist ROS - Medication Medications: Active Medications Generic Name Dose Route Start Last Admin Trade Name Freq PRN Reason Stop Dose Admin Hydralazine HCl 10 mg 10/01/20 07:55 10/01/20 14:28 Hydralazine 20 Mg/Ml Vial SLOW IVP 10 mg Q4H PRN Administration SBP > 200 or DBP >100 Sodium Chloride 1,000 mls @ 125 mls/hr 10/01/20 12:30 10/01/20 14:28 Normal Saline 0.9% IV 1,000 mls .Q8H JUNITO Administration Labetalol HCl 5 mg 09/26/20 17:43 09/30/20 10:39 Labetalol Hcl 100 Mg/20 Ml Vial SLOW IVP 5 mg Q4H PRN Administration SBP >200 Lisinopril 5 mg 09/30/20 09:00 10/01/20 08:30 Lisinopril 10 Mg Tab PO 5 mg DAILY JUNITO Administration Metoprolol Tartrate 12.5 mg 09/29/20 21:00 10/01/20 08:34 Metoprolol Tartrate 25 Mg Tab PO 12.5 mg BID JUNITO Administration Sodium Chloride 10 ml 09/27/20 09:00 10/01/20 08:34 Flush - Normal Saline 10 Ml Syringe IVF 10 ml Q12HR JUNITO Administration - Exam General Appearance: NAD, awake alert Eye: PERRL ENT: normocephalic atraumatic Neck: supple Heart: RRR Respiratory: CTAB, normal chest expansion Gastrointestinal: soft, normal bowel sounds Neurological: no focal deficits Psychiatric: A&O x 3 Hosp A/P - Plan (1) Cerebral artery vasospasm Code(s): I67.848 - OTHER CEREBROVASCULAR VASOSPASM AND VASOCONSTRICTION Status: Acute (2) Subarachnoid hemorrhage Code(s): I60.9 - NONTRAUMATIC SUBARACHNOID HEMORRHAGE, UNSPECIFIED Status: Acute (3) Right sided weakness Code(s): R53.1 - WEAKNESS Status: Resolved (4) HTN (hypertension) Code(s): I10 - ESSENTIAL (PRIMARY) HYPERTENSION Status: Chronic Qualifiers: Hypertension type: essential hypertension Qualified Code(s): I10 - Essential (primary) hypertension (5) Obesity Code(s): E66.9 - OBESITY, UNSPECIFIED Status: Chronic Qualifiers: Obesity classification: adult class 2 (BMI 35 - 39.9) Body mass index: BMI 36.0-36.9 (6) NATACHA (obstructive sleep apnea) Code(s): G47.33 - OBSTRUCTIVE SLEEP APNEA (ADULT) (PEDIATRIC) Status: Suspected (7) Obesity hypoventilation syndrome Code(s): E66.2 - MORBID (SEVERE) OBESITY WITH ALVEOLAR HYPOVENTILATION Status: Suspected maintain the blood pressure on the high end will reduce her blood pressure medications lisinopril as well as Lopressor to lower doses. Systolic blood pressure in 210 in the monitor. She is getting IV fluid. [facility] want to allow permissive hypertension and maintained blood pressure over [address] angiogram shows no significant CT abnormality. Is stable meningioma near the clinoid process. A small vessel ischemic disease. Echo showed EF of 65% with diastolic dysfunction. Mild hypokalemia -Being replaced Physical therapy consult placed for postacute screening. Obesity and associated possible obesity hypoventilation syndrome -Patient has not done any sleep study in the past. No CPAP -After the patient as well as the family member at bedside that she would benefit with outpatient sleep study. -Likely follow-up with Dr. Obrien. We will repeat the CT head for follow-up. If okay with neurosurgery we can transfer to the neuro floor. Physical therapy consult
--- NOTE | 2020-10-01 16:33 | PRG ---
DATE OF SERVICE: 10/01/2020 SUBJECTIVE: Sharmin Bello has no new complaints. OBJECTIVE: VITAL SIGNS: Heart rate is 99, blood pressure 130/59, oximetry is 100%. LUNGS: Clear. HEART: Regular rhythm. ABDOMEN: Soft. ASSESSMENT AND PLAN: Neurosurgery wants her blood pressure a little bit higher than it has been today, so her antihypertensives probably need to be held. Job ID: [id number]
[2020-10-02] MEDS: Sodium Chloride 0.9% 1,000 ML IV SCH ×4 (00:05→21:32)
[2020-10-02] MEDS: hydrALAZINE 20 MG/ML VIAL SLOW IVP PRN (02:47)
--- NOTE | 2020-10-02 10:21 | PRG ---
DATE OF SERVICE: 10/02/2020 Ms. Bello is now 19 days post bleed with an angiogram negative subarachnoid hemorrhage of aneurysmal pattern with no aneurysm found. She remains at this point neurologically intact again 19 days out. She is out of the vasospasm window. However, when we tried to normalize her blood pressure, she was coming out of the window. She had severe vasospasm in the left hemisphere and became right-sided hemiparetic. This corrected with IV fluids and liberalization allowing for systolic blood pressure of 180 to 200. She came in 19 days ago from her hemorrhage at 230/120. She likely requires blood pressure in the 160 to 200 over 80 to 100 range systolic and diastolic. At this point, we will start to decrease her fluids. She is now fluid positive, which is excellent. She would like to go home and I would be fine with discharge as long as we can try and maintain a blood pressure in the aforementioned parameters of 160 to 200, but preferably 160 to 180 range systolic and 80 to 90 range diastolic long-term. Yesterday, when we tried oral antihypertensives, it dropped her blood pressure again. She is at risk for parenchymal hemorrhage obviously with systolic blood pressures over 200. This is a delicate situation. I would be fine with transfer to the floor. I appreciate the excellent care of her medical colleagues. Job ID: [id number]
--- NOTE | 2020-10-02 10:48 | PDOC.HOSPP ---
- Subjective Encounter Date: 10/02/20 Encounter Time: 10:00 Subjective: Ms. Bello was sitting at the side of the bed at the time of the visit. She did not have any problems overnight and denied blurriness, headaches, eye pain, and increased weakness. She was alert and oriented and was getting ready to move to the neuro unit. Her SBP went over 200 overnight for which she was given hydralazine. She expressed her wish to go home soon. - Objective Vital Signs & Weight: Vital Signs (12 hours) Temp Pulse Resp BP BP Pulse Ox 10/02/20 07:32 99 10/02/20 03:14 98.4 F 85 22 H 176/70 H 100 10/02/20 03:00 98.4 F 10/02/20 02:47 88 203/105 H 10/02/20 00:00 98.8 F Weight Weight 226 lb 3.108 oz Most Recent Monitor Data Heart Rate from ECG 77 NIBP 183/113 NIBP BP-Mean 136 Respiration from ECG 18 SpO2 100 I&O: 10/01/20 10/02/20 10/03/20 06:59 06:59 06:59 Intake Total 3070 3051 240 Output Total 4140 1697 Balance -1070 1354 240 Result Diagrams: 09/29/20 03:05 09/30/20 03:50 Hospitalist ROS - Review of Systems Eyes: denies: pain, vision change Respiratory: denies: shortness of breath Cardiovascular: denies: chest pain Neurological: denies: numbness, confusion - Medication Medications: Active Medications Generic Name Dose Route Start Last Admin Trade Name Freq PRN Reason Stop Dose Admin Hydralazine HCl 10 mg 10/01/20 07:55 10/02/20 02:47 Hydralazine 20 Mg/Ml Vial SLOW IVP 10 mg Q4H PRN Administration KEEP SBP 160-200 & DBP <90-100 Sodium Chloride 1,000 mls @ 100 mls/hr 10/02/20 08:08 10/02/20 08:30 Normal Saline 0.9% IV 1,000 mls .Q10H JUNITO Administration Labetalol HCl 5 mg 09/26/20 17:43 09/30/20 10:39 Labetalol Hcl 100 Mg/20 Ml Vial SLOW IVP 5 mg Q4H PRN Administration SBP >200 Sodium Chloride 10 ml 09/27/20 09:00 10/02/20 08:30 Flush - Normal Saline 10 Ml Syringe IVF 10 ml Q12HR JUNITO Administration - Exam General Appearance: NAD Eye: anicteric sclera ENT: normocephalic atraumatic Neck: supple Heart: RRR, no murmur, no gallops Respiratory: CTAB, no wheezes, no rales Gastrointestinal: soft, non-tender, non-distended, normal bowel sounds Neurological: cranial nerve grossly intact, no new deficit Psychiatric: normal affect, A&O x 3 Hosp A/P - Plan (1) Cerebral artery vasospasm Code(s): I67.848 - OTHER CEREBROVASCULAR VASOSPASM AND VASOCONSTRICTION Status: Acute (2) Subarachnoid hemorrhage Code(s): I60.9 - NONTRAUMATIC SUBARACHNOID HEMORRHAGE, UNSPECIFIED Status: Acute (3) Right sided weakness Code(s): R53.1 - WEAKNESS Status: Resolved (4) HTN (hypertension) Code(s): I10 - ESSENTIAL (PRIMARY) HYPERTENSION Status: Chronic Qualifiers: Hypertension type: essential hypertension Qualified Code(s): I10 - Essential (primary) hypertension (5) Obesity Code(s): E66.9 - OBESITY, UNSPECIFIED Status: Chronic Qualifiers: Obesity classification: adult class 2 (BMI 35 - 39.9) Body mass index: BMI 36.0-36.9 (6) NATACHA (obstructive sleep apnea) Code(s): G47.33 - OBSTRUCTIVE SLEEP APNEA (ADULT) (PEDIATRIC) Status: Suspected (7) Obesity hypoventilation syndrome Code(s): E66.2 - MORBID (SEVERE) OBESITY WITH ALVEOLAR HYPOVENTILATION Status: Suspected maintain the blood pressure on the high end will reduce her blood pressure medications lisinopril as well as Lopressor to lower doses. Systolic blood pressure in 210 in the monitor. She is getting IV fluid. [facility] want to allow permissive hypertension and maintained blood pressure over [address] angiogram shows no significant CT abnormality. Is stable meningioma near the clinoid process. A small vessel ischemic disease. Echo showed EF of 65% with diastolic dysfunction. Mild hypokalemia -Being replaced Physical therapy consult placed for postacute screening. Obesity and associated possible obesity hypoventilation syndrome -Patient has not done any sleep study in the past. No CPAP -After the patient as well as the family member at bedside that she would benefit with outpatient sleep study. -Likely follow-up with Dr. Obrien. We will repeat the CT head for follow-up. If okay with neurosurgery we can transfer to the neuro floor. Physical therapy consult 10/02/2020 Hypertension, chronic - Blood pressure dropped during the day with the use of oral hypertensives --> stopped Lisinopril and Lopressor - Hydralazine PRN available for SBP >200 - received one dose overnight - moved to neuro floor Discussed in inpatient rehab options. Patient prefers to go home as she has a good family support including some of the family members are in the nursing as well as physical therapy field.
--- NOTE | 2020-10-02 15:32 | PRG ---
DATE OF SERVICE: 10/02/2020 Sharmin Bello is scheduled to transfer out of Critical Care. She still has mild resting tachycardia, blood pressure this morning is 167/98. Her antihypertensives are being held currently. Her tachycardia may be related to holding her beta tom. Neurosurgery feels it is imperative that her blood pressure be allowed to be drift up with her vasospasm. Lungs are clear. Heart, regular rhythm. Abdomen is soft. She will transfer out of critical care unit. We will sign off. Job ID: [id number]
[2020-10-02] MEDS: Labetalol HCl 100 MG/20 ML VIAL SLOW IVP PRN (23:42)
--- NOTE | 2020-10-03 09:29 | PDOC.HOSPP ---
- Subjective Encounter Date: 10/03/20 Encounter Time: 08:30 Subjective: Ms. Bello was sitting in bed at the time of the visit and was feeling well. She denied any headaches, blurriness, confusion, eye pain, and floaters. She mentioned her wish to go home and neurosurgery agrees with that. Her BP still continues to go above 200 and was given labetalol last night. Her SBP dropped to 130 this morning. - Objective Vital Signs & Weight: Vital Signs (12 hours) Temp Pulse Resp BP BP Pulse Ox 10/03/20 08:40 79 164/68 H 10/03/20 08:06 97 10/03/20 07:36 75 20 201/88 H 97 10/03/20 03:57 71 166/74 H 10/03/20 03:55 83 175/77 H 10/03/20 03:35 98.3 F 98 22 H 216/111 H 98 10/03/20 00:11 75 201/88 H 10/03/20 00:00 98.4 F 81 16 219/91 H 99 10/02/20 23:42 81 219/91 H Weight Weight 226 lb 3.108 oz Most Recent Monitor Data Heart Rate from ECG 77 NIBP 183/113 NIBP BP-Mean 136 Respiration from ECG 18 SpO2 100 I&O: 10/02/20 10/03/20 10/04/20 06:59 06:59 06:59 Intake Total 3051 764 Output Total 1697 Balance 1354 764 Result Diagrams: 09/29/20 03:05 09/30/20 03:50 Hospitalist ROS - Medication Medications: Active Medications Generic Name Dose Route Start Last Admin Trade Name Wilq PRN Reason Stop Dose Admin Hydralazine HCl 10 mg 10/01/20 07:55 10/02/20 02:47 Hydralazine 20 Mg/Ml Vial SLOW IVP 10 mg Q4H PRN Administration KEEP SBP 160-200 & DBP <90-100 Sodium Chloride 1,000 mls @ 100 mls/hr 10/02/20 08:08 10/02/20 21:32 Normal Saline 0.9% IV 1,000 mls .Q10H JUNITO Administration Labetalol HCl 5 mg 09/26/20 17:43 10/02/20 23:42 Labetalol Hcl 100 Mg/20 Ml Vial SLOW IVP 5 mg Q4H PRN Administration SBP >200 Sodium Chloride 10 ml 09/27/20 09:00 10/02/20 21:20 Flush - Normal Saline 10 Ml Syringe IVF Not Given Q12HR JUNITO - Exam General Appearance: NAD ENT: normocephalic atraumatic Neck: supple Heart: RRR, no murmur, no gallops Respiratory: CTAB, no wheezes Gastrointestinal: soft, non-tender, non-distended, normal bowel sounds Hosp A/P - Plan (1) Cerebral artery vasospasm Code(s): I67.848 - OTHER CEREBROVASCULAR VASOSPASM AND VASOCONSTRICTION Status: Acute (2) Subarachnoid hemorrhage Code(s): I60.9 - NONTRAUMATIC SUBARACHNOID HEMORRHAGE, UNSPECIFIED Status: Acute (3) Right sided weakness Code(s): R53.1 - WEAKNESS Status: Resolved (4) HTN (hypertension) Code(s): I10 - ESSENTIAL (PRIMARY) HYPERTENSION Status: Chronic Qualifiers: Hypertension type: essential hypertension Qualified Code(s): I10 - Essential (primary) hypertension (5) Obesity Code(s): E66.9 - OBESITY, UNSPECIFIED Status: Chronic Qualifiers: Obesity classification: adult class 2 (BMI 35 - 39.9) Body mass index: BMI 36.0-36.9 (6) NATACHA (obstructive sleep apnea) Code(s): G47.33 - OBSTRUCTIVE SLEEP APNEA (ADULT) (PEDIATRIC) Status: Suspected (7) Obesity hypoventilation syndrome Code(s): E66.2 - MORBID (SEVERE) OBESITY WITH ALVEOLAR HYPOVENTILATION Status: Suspected maintain the blood pressure on the high end will reduce her blood pressure medications lisinopril as well as Lopressor to lower doses. Systolic blood pressure in 210 in the monitor. She is getting IV fluid. [facility] want to allow permissive hypertension and maintained blood pressure over [address] angiogram shows no significant CT abnormality. Is stable meningioma near the clinoid process. A small vessel ischemic disease. Echo showed EF of 65% with diastolic dysfunction. Mild hypokalemia -Being replaced Physical therapy consult placed for postacute screening. Obesity and associated possible obesity hypoventilation syndrome -Patient has not done any sleep study in the past. No CPAP -After the patient as well as the family member at bedside that she would benefit with outpatient sleep study. -Likely follow-up with Dr. Amine. We will repeat the CT head for follow-up. If okay with neurosurgery we can transfer to the neuro floor. Physical therapy consult 10/02/2020 Hypertension, chronic - Blood pressure dropped during the day with the use of oral hypertensives --> stopped Lisinopril and Lopressor - Hydralazine PRN available for SBP >200 - received one dose overnight - moved to neuro floor Discussed in inpatient rehab options. Patient prefers to go home as she has a good family support including some of the family members are in the nursing as well as physical therapy field. 10/03/2020 Hypertension, chronic - SBP dropped to 130 this morning -- patient was given labetalol last night after her SBP went over 200 - Still want to maintain SBP in 160-180 systolic and diastolic between 80 and 90. -Will discontinue hydralazine IV as needed and I am starting her on p.o. hydralazine as needed to maintain the blood pressure - we will monitor for the next 24 hours. Then Will discharge her to home with as needed hydralazine with those specific parameters.
--- NOTE | 2020-10-03 09:48 | PRG ---
DATE OF SERVICE: 10/03/2020 Ms. Bello is coming out onto day 20 following her subarachnoid hemorrhage. Her blood pressure range has been 164 to 216 over 68 to 91. Again, I would recommend at least the next week or so that her blood pressure remain under 200, preferably in the 160 to 180 range systolic and 80 to 90 range diastolic. This may be accomplished with oral antihypertensives. I think that would be a good target for her long-standing blood pressure control as well, as upon her presentation 3 weeks ago, her blood pressure was 230/120. She maybe discharged to senior living facility or home if felt to be safe at any time. Job ID: [id number]
[2020-10-03] MEDS ORDERED: hydrALAZINE 25 MG TAB PO PRN (12:11)
[2020-10-03 15:41] VITALS: BP 168/74; TEMP 98.8
[2020-10-03] MEDS: Sodium Chloride 0.9% 1,000 ML IV SCH (15:47)
--- NOTE | 2020-10-03 16:03 | PDOC.DS.DS ---
Provider - Provider Date of Admission: 09/26/20 01:28 Admitting Provider: Ever Shaffer Primary Care Physician: Juan Gentile MD Course - Hospital Course Hospital Course: 59-year-old female presented with (1) Cerebral artery vasospasm Code(s): I67.848 - OTHER CEREBROVASCULAR VASOSPASM AND VASOCONSTRICTION Status: Acute (2) Subarachnoid hemorrhage Code(s): I60.9 - NONTRAUMATIC SUBARACHNOID HEMORRHAGE, UNSPECIFIED Status: Acute (3) Right sided weakness Code(s): R53.1 - WEAKNESS Status: Resolved (4) HTN (hypertension) Code(s): I10 - ESSENTIAL (PRIMARY) HYPERTENSION Status: Chronic Qualifiers: Hypertension type: essential hypertension Qualified Code(s): I10 - Essential (primary) hypertension (5) Obesity Code(s): E66.9 - OBESITY, UNSPECIFIED Status: Chronic Qualifiers: Obesity classification: adult class 2 (BMI 35 - 39.9) Body mass index: BMI 36.0-36.9 (6) NATACHA (obstructive sleep apnea) Code(s): G47.33 - OBSTRUCTIVE SLEEP APNEA (ADULT) (PEDIATRIC) Status: Suspected (7) Obesity hypoventilation syndrome Code(s): E66.2 - MORBID (SEVERE) OBESITY WITH ALVEOLAR HYPOVENTILATION Status: Suspected maintain the blood pressure on the high end will reduce her blood pressure m edications lisinopril as well as Lopressor to lower doses. Systolic blood pressure in 210 in the monitor. She is getting IV fluid. [facility] want to allow permissive hypertension and maintained blood pressure over [address] angiogram shows no significant CT abnormality. Is stable meningioma near the clinoid process. A small vessel ischemic disease. Echo showed EF of 65% with diastolic dysfunction. Mild hypokalemia -Being replaced Obesity and associated possible obesity hypoventilation syndrome -Patient has not done any sleep study in the past. No CPAP -After the patient as well as the family member at bedside that she would benefit with outpatient sleep study. -Likely follow-up with Dr. Obrien. Hypertension, chronic Patient lives in high blood pressure range due to noncompliance with taking her pills. Monitored closely to maintain the systolic between 1 80-200 while inpatient. To prevent to the severe vascular spasm her blood pressure should be maintained between SBP in 160-180 systolic and diastolic between 80 and 90. - -P.o. hydralazine provided as a prescription for her to take it if she needed to maintain the pressure as mentioned here. Her LDL level less than 70 she does not require statin at this point. Patient has good family support including physical therapist and nurse. Quite anxious to go home today. Discharge hemodynamically in stable condition. Discharge time over 30 minutes. Resuscitation Status: 09/26/20 04:05 Resuscitation Status Routine Resuscitation Status: FULL: Full Resuscitation - Labs Lab Results: 09/29/20 03:05 09/30/20 03:50 - Physical Exam Vitals: Vital Signs (12 hours) Temp Pulse Pulse Resp BP BP Pulse Ox 10/03/20 15:38 98.8 F 85 17 168/74 H 97 10/03/20 11:34 98.5 F 88 18 162/70 H 97 10/03/20 10:23 133/58 L 10/03/20 08:41 80 133/58 L 10/03/20 08:40 79 164/68 H 10/03/20 08:06 97 10/03/20 08:00 97 10/03/20 07:36 75 20 201/88 H 97 Weight Weight 226 lb 3.108 oz Most Recent Monitor Data Heart Rate from ECG 77 NIBP 183/113 NIBP BP-Mean 136 Respiration from ECG 18 SpO2 100 Physical Exam: The patient was seen and examined on the day of discharge. Plan - Discharge Medications Prescriptions: hydrALAZINE [Apresoline] 10 mg PO TID PRN 30 Days #30 tab PRN Reason: Blood Pressure Home Medications: Medication Instructions Recorded Confirmed Type hydrALAZINE [Apresoline] 10 mg PO TID PRN 30 Days #30 tab 10/03/20 Rx Allergies: latex Allergy (Verified 09/14/20 02:01) PER ER NOTES - Discharge Instructions Discharge Instructions:: Follow-up with the PCP in 1 week. Follow-up with Dr. Sandoval Zavala in 2 to 3 weeks as needed. Please check your blood pressure regularly. Take hydralazine 10 mg only if systolic blood pressure between 160-180 or diastolic between 80-90. Activity:: Activity as Tolerated Nourishment:: Heart Healthy Diet - Follow up Plan Referrals: Juan Gentile MD [Primary Care Provider] - Disposition: HOME Quality - Care Measures CORE MEASURES:: N/A
== END 2020-10-03 17:41 | disposition home or self-care (01) | DRG 69 ==
LOC: ERS 23:29 → ERHOLD 09-26 01:28 → CCU 09-26 04:55 → 2SE 10-02 12:19
PROVIDERS: ADMIT Internal Medicine; ATTEND Internal Medicine
DX: I67.848 Other cerebrovascular vasospasm and vasoconstriction (principal); I60.9 Nontraumatic subarachnoid hemorrhage, unspecified; G81.91 Hemiplegia, unspecified affecting right dominant side; E66.2 Morbid (severe) obesity with alveolar hypoventilation; R47.02 Dysphasia; N18.9 Chronic kidney disease, unspecified; I12.9 Hypertensive chronic kidney disease with stage 1 through stage 4 chronic kidney disease, or unspecified chronic kidney disease; E87.6 Hypokalemia; Z20.828 Contact with and (suspected) exposure to other viral communicable diseases; Z68.36 Body mass index [BMI] 36.0-36.9, adult; Z79.899 Other long term (current) drug therapy; Z91.040 Latex allergy status; R53.1 Weakness
CPT/HCPCS: 36415; 36416; 70450; 70496; 70498; 80048; 80053; 80061; 84443; 85007; 85025; 85027; 93306; 93970; J0360; J2001; P9047; Q9967; U0002

== ENCOUNTER 2024-08-04 02:01 | Inpatient (IN) | payer MEDICARE, MEDICAID ==
[2024-08-04] MEDS ORDERED: Ondansetron PF 4 MG/2 ML Vial ONE (02:03)
[2024-08-04 02:44] LABS: #Basophils 0.04 10x3/uL (0.0-0.2); %Basophils 0.5 % (0.0-1.0); %Eosinophils 1.5 % (0.0-10.0); %Lymphocytes 18.2 % (21.0-51.0); %Monocytes 5.3 % (0.0-10.0); %Neutrophils 74.1 % (42.0-75.0); Hematocrit 41.7 % (36.0-47.0); Hemoglobin 12.3 g/dL (12.0-16.0); Mean Corpuscular HGB CONC 29.5 g/dL (32.0-36.0); Mean Corpuscular Hemoglobin 21.9 pg (27.0-31.0); Mean Corpuscular Volume 74.3 fL (78.0-98.0); Mean Platelet Volume 10.4 fL (7.4-10.4); Platelet Count 198 10x3/uL (130-400); RBC Distribution Width 14.6 % (11.5-14.5); Red Blood Cell (RBC) Count 5.61 mill/uL (4.20-5.40)
[2024-08-04 02:52] LABS: INR-International Normal Ratio 1.1; PTT 24.9 sec (22.9-36.1); Prothrombin Time 13.7 sec (12.0-14.7)
[2024-08-04] MEDS ORDERED: niCARdipine 25 MG/10 ML SDV ONE (03:03)
[2024-08-04 03:05] LABS: ALT (SGPT) 17 U/L (8-55); AST (SGOT) 16 U/L (5-34); Albumin 4.1 g/dL (3.4-4.8); Alkaline Phosphatase 128 U/L (40-110); Anion Gap 14 mmol/L (10-20); BUN (Urea Nitrogen) 15 mg/dL (9.8-20.1); Bilirubin, Total 0.2 mg/dL (0.2-1.2); Calc. Creatinine Clearance 0 mL/min (70-130); Calcium 9.7 mg/dL (7.8-10.44); Carbon Dioxide 22 mmol/L (23-31); Chloride 103 mmol/L (98-107); Estimated GFR 95; Globulin 4.2 g/dL (2.4-3.5); Glucose 188 mg/dL (80-115); Magnesium 1.7 mg/dL (1.6-2.6); Potassium 3.1 mmol/L (3.5-5.1); Protein, Total 8.3 g/dL (5.8-8.1); Sodium 136 mmol/L (136-145)
[2024-08-04 03:08] LABS: Troponin I Less than 0.010 ng/mL (< 0.028)
[2024-08-04 03:11] LABS: Microcytosis SLIGHT = 6-15 cells HPF (0-5); Platelet Adequacy Comment Platelets Normal
[2024-08-04] MEDS ORDERED: Aspirin Chewable 81 MG TAB ONE (03:14)
[2024-08-04 03:35] LABS: Bacteria/HPF None Seen HPF (None Seen); Bilirubin Negative (Negative); Blood, Urine Negative (Negative); CAUTI Indications for Culture Dysuria,urgency,freq; Clarity Clear (Clear); Glucose, Urine (Dipstick) 100 mg/dL (Negative); Ketone, Urine Negative (Negative); Leukocyte Negative Leu/uL (Negative); Nitrite Negative (Negative); Protein, Urine (Dipstick) 30 mg/dL (Neg-Trace); RBC/HPF None Seen HPF (0-3); Specific Gravity, Urine 1.015 (1.002-1.036); Squamous Epithelial None Seen HPF (0-3); Urobilinogen Normal mg/dL (Less than 2); WBC/HPF 0-3 HPF (0-3); pH, Urine 7.5 (5.0-9.0)
[2024-08-04 04:28] LABS: Urine Culture Reflex No No
[2024-08-04] MEDS ORDERED: Magnesium Sulfate 2 GM in Sodium Chloride 0.9% 100 ML IVPB SCH (04:45)
[2024-08-04] MEDS: niCARdipine 25 MG in Sodium Chloride 0.9% 250 ML 250 ML IVPB SCH (06:43)
[2024-08-04] MEDS: Magnesium 2 GM/50 ML(in water) 2 GM in Premix 1 BAG IVPB SCH (06:43)
[2024-08-04] MEDS ORDERED: Promethazine HCl 12.5 MG in Sodium Chloride 0.9% 50 ML IVPB PRN (06:50)
[2024-08-04] MEDS ORDERED: Electrolyte Replacement Protocol 1 EACH FS SCH (07:00)
[2024-08-04] MEDS ORDERED: Electrolyte Replacement Protocol FS PRN (07:00)
[2024-08-04] MEDS: Potassium Chloride 20 MEQ TAB PO SCH (07:03)
[2024-08-04] MEDS: Ondansetron PF 4 MG/2 ML Vial IVP PRN (07:52)
[2024-08-04] MEDS: Pantoprazole 40 MG VIAL IVP SCH (07:52)
[2024-08-04] MEDS: hydrALAZINE 10 MG TAB PO SCH (07:52)
[2024-08-04] MEDS: Potassium Chloride 20 MEQ in Premix 1 BAG IVPB SCH (07:52)
[2024-08-04] MEDS ORDERED: niCARdipine 50 MG in Sodium Chloride 0.9% 250 ML 230 ML IVPB SCH (09:45)
[2024-08-04] MEDS: niCARdipine 50 MG, Admixture Fee 1 EACH in Sodium Chloride 0.9% 250 ML 230 ML IVPB SCH (10:13)
[2024-08-04 10:39] LABS: A1c 210.32 g/dL; Hb (HGBA1c) 4940.4575 umol/L
[2024-08-04] MEDS: NIFEdipine XL 30 MG ER.TAB PO SCH (11:06)
[2024-08-04] MEDS ORDERED: Iopamidol-370 76% 500 ML MDV (1 ML CHARGE) ONE (12:26)
[2024-08-04] MEDS: Acetaminophen 325 MG TAB PO PRN (15:26)
[2024-08-05 05:33] LABS: #Basophils 0.04 10x3/uL (0.0-0.2); %Basophils 0.4 % (0.0-1.0); %Eosinophils 0.5 % (0.0-10.0); %Lymphocytes 16.4 % (21.0-51.0); %Monocytes 6.8 % (0.0-10.0); %Neutrophils 75.5 % (42.0-75.0); Hematocrit 42.6 % (36.0-47.0); Hemoglobin 12.7 g/dL (12.0-16.0); Mean Corpuscular HGB CONC 29.8 g/dL (32.0-36.0); Mean Corpuscular Hemoglobin 21.5 pg (27.0-31.0); Mean Platelet Volume 11.1 fL (7.4-10.4); Platelet Count 246 10x3/uL (130-400); RBC Distribution Width 14.8 % (11.5-14.5); Red Blood Cell (RBC) Count 5.92 mill/uL (4.20-5.40)
[2024-08-05 05:36] LABS: Anion Gap 11 mmol/L (10-20); BUN (Urea Nitrogen) 13 mg/dL (9.8-20.1); Calc. Creatinine Clearance 130 mL/min (70-130); Calcium 10.1 mg/dL (7.8-10.44); Carbon Dioxide 27 mmol/L (23-31); Cardiac Risk 3.6 (Less than 4.5); Chloride 104 mmol/L (98-107); Cholesterol 195 mg/dl (< 200 Desired); Estimated GFR 92; Glucose 116 mg/dL (80-115); HDL Cholesterol 54 mg/dL (>60 Neg Risk); LDL Cholesterol, Calculated 126 mg/dL; Potassium 3.8 mmol/L (3.5-5.1); Sodium 138 mmol/L (136-145); Triglycerides 73 mg/dL (Less than 150)
[2024-08-05] MEDS: NIFEdipine XL 30 MG ER.TAB PO SCH (09:06)
[2024-08-05] MEDS: Losartan 25 MG TAB PO SCH (09:07)
[2024-08-05] MEDS: Pantoprazole DR 40 MG TAB PO SCH (09:48)
[2024-08-05] MEDS: Atorvastatin Calcium 40 MG TAB PO SCH (20:46)
[2024-08-05] MEDS: Loratadine 10 MG TAB PO PRN (20:47)
[2024-08-06 03:57] LABS: #Basophils 0.04 10x3/uL (0.0-0.2); %Basophils 0.5 % (0.0-1.0); %Eosinophils 1.6 % (0.0-10.0); %Lymphocytes 25.6 % (21.0-51.0); %Monocytes 8.6 % (0.0-10.0); %Neutrophils 63.3 % (42.0-75.0); Hematocrit 41.6 % (36.0-47.0); Hemoglobin 12.3 g/dL (12.0-16.0); Mean Corpuscular HGB CONC 29.6 g/dL (32.0-36.0); Mean Corpuscular Hemoglobin 21.6 pg (27.0-31.0); Mean Corpuscular Volume 73.1 fL (78.0-98.0); Mean Platelet Volume 11.4 fL (7.4-10.4); Platelet Count 261 10x3/uL (130-400); RBC Distribution Width 15.2 % (11.5-14.5); Red Blood Cell (RBC) Count 5.69 mill/uL (4.20-5.40)
[2024-08-06 04:13] LABS: Anion Gap 11 mmol/L (10-20); BUN (Urea Nitrogen) 20 mg/dL (9.8-20.1); Calc. Creatinine Clearance 123 mL/min (70-130); Calcium 10.4 mg/dL (7.8-10.44); Carbon Dioxide 25 mmol/L (23-31); Chloride 104 mmol/L (98-107); Estimated GFR 88; Glucose 113 mg/dL (80-115); Potassium 3.8 mmol/L (3.5-5.1); Sodium 136 mmol/L (136-145)
[2024-08-06] MEDS: Pantoprazole DR 40 MG TAB PO SCH (08:26)
[2024-08-06] MEDS: Docusate 100 MG CAP PO SCH (12:49)
[2024-08-06] MEDS: Polyethylene Glycol 3350 17 GM Packet PO SCH (12:50)
[2024-08-06] MEDS: NIFEdipine XL 30 MG ER.TAB PO SCH (12:50)
[2024-08-06] MEDS: Labetalol HCl 100 MG/20 ML VIAL SLOW IVP PRN (15:35)
[2024-08-07] MEDS ORDERED: NIFEdipine XL 60 MG ER.TAB PO SCH (09:00)
[2024-08-07] MEDS: NIFEdipine XL 60 MG ER.TAB PO SCH (09:14)
[2024-08-07] MEDS: hydrALAZINE 25 MG TAB PO SCH (09:21)
[2024-08-07] MEDS: Docusate 100 MG CAP PO PRN (12:24)
[2024-08-07] MEDS: Polyethylene Glycol 3350 17 GM Packet PO PRN (12:25)
[2024-08-08 10:16] VITALS: BMI 47.4
[2024-08-09 04:02] LABS: Hematocrit 40.5 % (36.0-47.0); Hemoglobin 11.8 g/dL (12.0-16.0); Mean Corpuscular HGB CONC 29.1 g/dL (32.0-36.0); Mean Corpuscular Hemoglobin 21.6 pg (27.0-31.0); Mean Corpuscular Volume 74.2 fL (78.0-98.0); Mean Platelet Volume 10.5 fL (7.4-10.4); Platelet Count 291 10x3/uL (130-400); RBC Distribution Width 14.7 % (11.5-14.5); Red Blood Cell (RBC) Count 5.46 mill/uL (4.20-5.40)
[2024-08-09 04:54] LABS: Anion Gap 10 mmol/L (10-20); BUN (Urea Nitrogen) 21 mg/dL (9.8-20.1); Calc. Creatinine Clearance 114 mL/min (70-130); Calcium 10.3 mg/dL (7.8-10.44); Carbon Dioxide 26 mmol/L (23-31); Chloride 107 mmol/L (98-107); Estimated GFR 77; Glucose 112 mg/dL (80-115); Sodium 139 mmol/L (136-145)
[2024-08-09 08:51] VITALS: TEMP 96.8
[2024-08-09] MEDS: Aspirin 81 mg Enteric Coated Tablet PO SCH (08:51)
[2024-08-09 19:41] VITALS: BP 178/78
== END 2024-08-09 19:50 | disposition home or self-care (01) | DRG 64 ==
LOC: ERS 02:01 → CCU 06:16 → 2SE 08-07 15:46
PROVIDERS: ADMIT Internal Medicine; ATTEND Internal Medicine
DX: I63.9 Cerebral infarction, unspecified (principal); G93.5 Compression of brain; I50.32 Chronic diastolic (congestive) heart failure; Z68.42 Body mass index [BMI] 45.0-49.9, adult; I16.0 Hypertensive urgency; E87.6 Hypokalemia; D32.0 Benign neoplasm of cerebral meninges; Z91.040 Latex allergy status; Z79.82 Long term (current) use of aspirin; Z79.899 Other long term (current) drug therapy; E66.01 Morbid (severe) obesity due to excess calories; I11.0 Hypertensive heart disease with heart failure; Z98.890 Other specified postprocedural states
CPT/HCPCS: 36415; 36416; 70450; 70496; 70498; 70544; 70551; 71045; 80048; 80053; 80061; 81001; 83036; 83735; 83880; 84443; 84484; 85025; 85027; 85610; 85730; 93005; 93306; J2405; J2470; J3475; J3480; J7050; Q9967